=== PATIENT | female | born 1945 | race Caucasian/White ===

== ENCOUNTER 2020-08-01 10:12 | Outpatient (REF) | payer MEDICARE, SELFPAY | END 2020-08-01 10:13 | disposition home or self-care (01) | LOC: HO.LAB 10:12 | PROVIDERS: Visit Provider Internal Medicine | DX: Z20.828 Contact with and (suspected) exposure to other viral communicable diseases (principal) | CPT/HCPCS: C9803; U0003 ==

== ENCOUNTER 2020-08-22 08:59 | Outpatient (REF) | payer MEDICARE, SELFPAY | END 2020-08-22 09:00 | disposition home or self-care (01) | LOC: HO.LAB 08:59 | PROVIDERS: PCP Internal Medicine; Visit Provider Internal Medicine | DX: Z20.822 Contact with and (suspected) exposure to COVID-19 (principal) | CPT/HCPCS: 36415; C9803; U0003 ==

== ENCOUNTER 2020-09-09 11:04 | Outpatient (REF) | payer MEDICARE, SELFPAY | END 2020-09-09 11:05 | disposition home or self-care (01) | LOC: HO.LAB 11:04 | PROVIDERS: Visit Provider Internal Medicine | DX: Z20.822 Contact with and (suspected) exposure to COVID-19 (principal) | CPT/HCPCS: 36415; C9803; U0003; U0005 ==

== ENCOUNTER 2021-03-20 14:08 | Observation (INO) | payer MEDICARE, SELFPAY ==
--- NOTE | ~2021-03-20 | CT_ITS ---
EXAMINATION: CT HEAD WITHOUT CONTRAST CLINICAL INFORMATION: Headache. Hypertension. COMPARISON: None. TECHNIQUE: Contiguous axial imaging was performed from the skull base to vertex without intravenous administration of contrast. Coronal and sagittal reformatted images are performed at the CT scanner. [This CT examination was performed using dose optimization techniques as appropriate, variously including the following: *Automated exposure control *Adjustment of mA and/or kV according to patient size (this includes techniques or standardized protocols for targeted exams where dose is matched to indication/reason for exam; i.e. extremities or head) *Use of iterative reconstruction technique] DLP: 624 mGy-cm. FINDINGS: There is no evidence of acute intracranial hemorrhage or territorial infarction. No abnormal mass-effect or midline shift is seen. [place] to white matter differentiation is well preserved. No extra-axial fluid collections are identified. Physiologic mineralization basal ganglia bilateral. There is generalized global volume loss. There is moderate prominence of the ventricles and the sulci . There is moderate hypodensity of the periventricular white matter due to chronic small vessel ischemic disease. There are vascular calcifications of the internal carotid arteries bilaterally. There is no osseous abnormality. The mastoid air cells and visualized portions of the paranasal sinuses are well-aerated. CT/CT head/brain wo con IMPRESSION: No acute intracranial pathology.
--- NOTE | ~2021-03-20 | CT_ITS ---
EXAMINATION: CT ABDOMEN AND PELVIS WITHOUT AND WITH CONTRAST CLINICAL INFORMATION: Gastrointestinal bleeding COMPARISON: None TECHNIQUE: Multidetector volumetric imaging was performed of the abdomen and pelvis before and after the IV administration of 80 mL of Omnipaque 350 intravenous contrast timed for portal venous and delayed venous phases. Sagittal and coronal reformatted images were obtained on the technologist's workstation. This CT examination was performed using dose optimization techniques as appropriate, variously including the following: *Automated exposure control *Adjustment of mA and/or kV according to patient size (this includes techniques or standardized protocols for targeted exams where dose is matched to indication/reason for exam; i.e. extremities or head) *Use of iterative reconstruction technique DLP: 2509 mGy-cm FINDINGS: LUNG BASES: The visualized lung bases are unremarkable. LIVER, GALLBLADDER, AND BILIARY TREE: The liver is normal in size, shape, and attenuation. No focal hepatic lesion or biliary ductal dilatation is present. The gallbladder is unremarkable with no evidence of radiopaque gallstones, gallbladder wall thickening, or obvious pericholecystic inflammatory changes. PANCREAS: There is extensive fatty infiltration of the pancreas. No duct dilation. No focal pancreatic lesion is identified. SPLEEN: Unremarkable ADRENAL GLANDS: Unremarkable KIDNEYS AND URETERS: The kidneys are normal in size, shape, and attenuation. No hydronephrosis, hydroureter, or calculi seen. No perinephric stranding. There are subcentimeter hypodensities too small to characterize bilaterally. BLADDER: There is a tiny focus of air within the bladder. Would correlate for any recent instrumentation or catheterization. GASTROINTESTINAL TRACT: There is a small hiatus hernia containing a portion of the proximal stomach, otherwise the distal esophagus and stomach are unremarkable. There is a large duodenal diverticulum arising from the second portion of the duodenum and extending into the region of the pancreatic head which measures up to 6.2 cm anteroposterior. The small and large bowel are nondilated. There is no extravasation of contrast into the bowel lumen to suggest ongoing hemorrhage. There are no bowel wall inflammatory changes. There is moderate diverticulosis of the colon, predominantly the left colon. ABDOMINAL WALL: No significant hernia is appreciated. LYMPH NODES: Normal VASCULAR: The aorta is normal in caliber and there is mild scattered eccentric wall calcification. Portal mesenteric venous system is widely patent. Hepatic veins are patent. PELVIC VISCERA: The uterus is surgically absent there are no adnexal lesions identified. OSSEOUS STRUCTURES: There are multilevel degenerative changes of the imaged thoracolumbar spine with grade 1 anterolisthesis of L4 on L5 by 2 3 mm and grade 1-2 anterolisthesis of L5 on S1 by approximately 6 to 7 mm. There are degenerative changes of the sacroiliac joints and hips. No acute or aggressive bony abnormality is identified. CT/CT gi bleed abd pel wo/w con IMPRESSION: There is no CT evidence of ongoing gastrointestinal hemorrhage. 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 Colonic diverticulosis without inflammation to suggest diverticulitis. Tiny focus of air within the bladder. Would correlate for any recent catheterization or instrumentation. Moderate hiatus hernia.
[2021-03-20 15:17] VITALS: BP 156/100; PULSE 91; RESP 20; TEMP 36.8; O2SAT 95; BMI 33.6
--- NOTE | 2021-03-20 15:28 | ECG_ITS ---
Test Reason : NAUSEA Blood Pressure : / mmHG Vent. Rate : 078 BPM Atrial Rate : 092 BPM P-R Int : 000 ms QRS Dur : 096 ms QT Int : 400 ms P-R-T Axes : 000 -02 014 degrees QTc Int : 456 ms Atrial fibrillation Abnormal ECG No previous ECGs available Referred By: Generic ED Physician Electronically Signed By:NIKHIL PEÑA
[2021-03-20] MEDS: Ondansetron ODT 4 MG TAB.RAPDIS TRANSLINGU (15:40)
[2021-03-20 17:28] LABS: MANUAL DIFF FLAG NO
[2021-03-20 17:30] LABS: Basophils Percent Auto 0.2 % (0-2); Eosinophils Percent Auto 0.1 % (0-4); Hematocrit 50.6 % (37-47); Hemoglobin 17.5 g/dl (12.0-16.0); Imm Gran Abs Auto 0.11 X10*3/uL (0.00-0.03); Imm Gran Pct Auto 0.7 % (0.0-0.4); Lymphocytes Absolute Auto 1.3 X10*3/uL (1.2-4.9); Lymphocytes Percent Auto 8.4 % (20-40); Mean Corpuscular HGB Conc 34.6 g/dl (31.0-35.0); Mean Corpuscular Hemoglobin 31.6 pg (27.0-33.0); Mean Corpuscular Volume 91.5 fL (80-98); Mean Platelet Volume 9.4 fL (9.4-12.3); Monocytes Absolute Auto 0.9 X10*3/uL (0.1-1.2); Monocytes Percent Auto 6.2 % (2-11); Neutrophils Absolute Auto 12.9 X10*3/uL (2.0-8.3); Neutrophils Percent Auto 84.4 % (45-73); Platelet Count 240 X10*3/uL (160-400); Red Blood Count 5.53 X10*6/uL (4.20-5.50); Red Cell Distribution Width 12.7 % (11.0-16.0); White Blood Count 15.3 X10*3/uL (4.8-10.8)
[2021-03-20 17:37] LABS: INTERNATIONAL NORM RATIO 3.9 (0.9-1.1); Prothrombin Time 45.9 SEC (9.9-13.0)
[2021-03-20 18:00] LABS: Anion Gap 15 (12-20); Blood Urea Nitrogen 22 mg/dL (9-16); Calcium 9.8 mg/dL (8.4-10.2); Carbon Dioxide 27 mmol/L (22-29); Chloride 104 mmol/L (96-108); Creatinine Clr Calc Pharmacy 62.7; Estimated Glomerular Filt Rate > 60; Glucose Random 113 mg/dL (60-115); Potassium 5.1 mmol/L (3.3-5.1); Sodium 141 mmol/L (135-145)
[2021-03-20 18:05] LABS: B Type Natriuretic Peptide 363 pg/mL (<100); Troponin-I High Sensitivity 10.5 ng/L (<3.5-17.0)
--- NOTE | 2021-03-20 18:33 | ED.GIBLEED ---
HPI - GI Bleed General Chief complaint: GI Bleed Stated complaint: vomiting Time Seen by Provider: 03/20/21 23:55 Source: patient Mode of arrival: ambulatory Limitations: no limitations History of Present Illness HPI Narrative: 75-year-old female presents with multiple complaints. One, she started rectal bleeding today describing bright red blood per rectum which she feels could possibly be hemorrhoids however she is on Coumadin and has had several episodes of rectal bleeding today. Shortly after the rectal bleeding she stated that she started having a significant headache with sinus pressure nausea and epigastric pain. She does report recent cortisone injection to her knee. MD complaint: blood on toilet paper and gross hematochezia Onset (ago): day(s) (1) Pain Consistency: intermittent Severity: moderate Relieving factors: none Exacerbating factors: bowel movement and vomiting Context: hemorrhoids and anticoagulant use Associated symptoms: nausea, vomiting and headaches Treatments Prior to Arrival: none Related Data Allergies Allergy/AdvReac Type Severity Reaction Status Date / Time No Known Allergies Allergy Verified 03/20/21 15:27 Review of Systems Review of Systems: Constitutional: No Fever, No Chills ENT/Mouth: Positive sinus pressure, No Ear Pain, No Hoarseness, No sore throat Eyes: No Eye Pain, No Swelling, No Redness, No Foreign Body Cardiovascular: No Chest Pain, No SOB Respiratory: No Cough, No Dyspnea Gastrointestinal: Positive rectal bleeding,Positive Nausea, positive Vomiting, No Diarrhea, No abdominal Pain Genitourinary: No Dysuria, No Hematuria Musculoskeletal: No joint pain, No Myalgias, No Joint Swelling Skin: No Skin lacerations, No rash Neuro: Positive headache, No Weakness, No Numbness, No Paresthesias, No Loss of Consciousness, No Dizziness Psych: No Anxiety/Panic, No Depression Heme/Lymph: no easy bruising, no Lymphadenopathy Endocrine: No Polyuria, No Polydipsia Yes all other systems are reviewed and are negative [facility] Past Medical History Attestation statement: The following information was validated with the patient. Source: old records reviewed Medical History A-fib Social History Social History Alcohol intake: never Patient Tobacco Use Status: Never used Tobacco Use of substances other than those prescribed or required for medical reasons: No Advance Directives: No Advance Directives Information Provided: Yes Physical Exam Vital Signs: Vital Signs: Last Vital Signs Temp 98.2 F 03/20/21 23:54 Pulse 76 03/20/21 23:54 Resp 18 03/20/21 23:54 BP 147/103 H 03/20/21 23:54 Pulse Ox 95 03/20/21 23:54 Body Mass Index 33.6 Appearance: Alert. Oriented X3. No acute distress. Head: Normal external exam. Normocephalic. Atraumatic. No [place] signs noted. No raccoon eyes noted Eyes: PERRLA. EOMI. Conjunctiva and sclera normal. Eyelids normal. ENT: TM's Normal. Pharynx normal. Uvula midline. Moist mucous membranes. No trismus noted. No drooling noted. No muffled voice noted. Neck: Normal inspection. Neck supple. No adenopathy. Thyroid Normal. No meningeal signs. No neck mass noted. CVS: Normal heart rate and rhythm. Heart sound normal. No murmurs noted. Pulses equal to all extremities. Respiratory: No respiratory distress. Painless inspiration. Breath sounds normal. No wheezes/rales/rhonchi noted. Chest nontender. No accessory muscle usage noted or decreased air movement noted. Abdomen: Soft and mildly tender throughout positive Bowel sounds normal in all 4 quadrants. No distention noted. No organomegaly noted. No visible injury noted. Genitourinary: No vaginal bleeding, rectal tone normal, internal and external hemorrhoids. Back: No CVA tenderness. Full range of motion noted. Skin: Skin warm and dry. Normal skin color. Normal skin turgor. No rashes/lesions/lacerations noted. Extremities: No lower extremity edema. Extremities exhibit normal range of motion. Extremities nontender. Neuro: cranial nerves 2-12 intact, no focal neural deficits, strength 5/5 to all extremities, No motor deficit. No sensory deficit. Course Course Course Narrative: 75-year-old female presents with bright red blood per rectum, headache, nausea, vomiting, and sinus pressure. Also noted to have elevated blood pressure which is not normal for her. A cortisone injection a couple days ago to her knee. Labs drawn indicating elevated white count, H and H of 17.5/50.6, patient is on Coumadin. Will give L fluid for suspected dehydration, could possibly be polycythemia vera. Will order CT scan of abdomen and pelvis, due to sudden onset of headache and elevated blood pressure will order CT scan of the head. CT scans are negative for acute findings, abdomen shows a 6.2 cm duodenal diverticulum that reaches out to the pancreatic head. No source of bleeding found. Urinalysis positive for UTI treated with ceftriaxone, lactic and cultures drawn prior to ceftriaxone. Patient is not septic, does not fit SIRS or sepsis criteria. Plan is to admit for rectal bleeding, possible dehydration versus polycythemia vera secondary to elevated H&H, and UTI. Consultations Consultation #1: Dario Time: 23:55 MDM - GI Bleed Differential Diagnosis Differential diagnosis: Likely hemorrhoids, gastritis, Upper gastrointestinal hemorrhage, Lower gastrointestinal hemorrhage, hematochezia and melena Medical Records Attestation: I reviewed the patient's medical records. Lab Data Attestation: I reviewed the patient's lab results. Result diagrams: 03/20/21 17:22 03/20/21 17:21 Labs: Lab Results 03/20/21 03/20/21 03/20/21 Range/Units 17:21 17:21 17:21 WBC (4.8-10.8) X10*3/uL RBC (4.20-5.50) X10*6/uL Hgb (12.0-16.0) g/dl Hct (37-47) % MCV (80-98) fL MCH (27.0-33.0) pg MCHC (31.0-35.0) g/dl RDW (11.0-16.0) % Plt Count (160-400) X10*3/uL MPV (9.4-12.3) fL Immature Gran % (Auto) (0.0-0.4) % Neut % (Auto) (45-73) % Lymph % (Auto) (20-40) % [place] % (Auto) (2-11) % Eos % (Auto) (0-4) % Baso % (Auto) (0-2) % Lymph # (Auto) (1.2-4.9) X10*3/uL [place] # (Auto) (0.1-1.2) X10*3/uL Eos # (Auto) (0.0-0.4) X10*3/uL Baso # (Auto) (0.0-0.2) X10*3/uL Abs Immat Gran (auto) (0.00-0.03) X10*3/uL Absolute Neuts (auto) (2.0-8.3) X10*3/uL Absolute Nucleated RBC (0.0-0.012) X10*3/uL Nucleated RBC % (auto) (0.0-0.2) /100WBC PT 45.9 H (9.9-13.0) SEC INR 3.9 H (0.9-1.1) Sodium 141 (135-145) mmol/L Potassium 5.1 (3.3-5.1) mmol/L Chloride 104 (96-108) mmol/L Carbon Dioxide 27 (22-29) mmol/L Anion Gap 15 (12-20) BUN 22 H (9-16) mg/dL Creatinine 0.83 (0.5-1.4) mg/dL Estim Creat Clear Calc 62.7 Estimated GFR > 60 Random Glucose 113 (60-115) mg/dL Lactic Acid (0.5-2.0) mmol/L Calcium 9.8 (8.4-10.2) mg/dL Troponin I High Sens 10.5 (<3.5-17.0) ng/L B-Natriuretic Peptide 363 H (<100) pg/mL Urine Color Urine Appearance Urine pH (5.0-8.0) Ur Specific [place] (1.005-1.025) Urine Protein (NEG-TRACE) MG/DL Urine Glucose (UA) (NEG) MG/DL Urine Ketones (NEG) MG/DL Urine Blood (NEG) Urine Nitrite (NEG) Ur Leukocyte Esterase (NEG) Urine RBC (0) /HPF Urine WBC (0-4) /HPF Ur Squamous Epith Cells /LPF Urine Bacteria /LPF Hyaline Casts /LPF Stool Occult Blood (NEGATIVE) 03/20/21 03/20/21 03/20/21 Range/Units 17:22 18:52 20:00 WBC 15.3 H (4.8-10.8) X10*3/uL RBC 5.53 H (4.20-5.50) X10*6/uL Hgb 17.5 H (12.0-16.0) g/dl Hct 50.6 H (37-47) % MCV 91.5 (80-98) fL MCH 31.6 (27.0-33.0) pg MCHC 34.6 (31.0-35.0) g/dl RDW 12.7 (11.0-16.0) % Plt Count 240 (160-400) X10*3/uL MPV 9.4 (9.4-12.3) fL Immature Gran % (Auto) 0.7 H (0.0-0.4) % Neut % (Auto) 84.4 H (45-73) % Lymph % (Auto) 8.4 L (20-40) % [place] % (Auto) 6.2 (2-11) % Eos % (Auto) 0.1 (0-4) % Baso % (Auto) 0.2 (0-2) % Lymph # (Auto) 1.3 (1.2-4.9) X10*3/uL [place] # (Auto) 0.9 (0.1-1.2) X10*3/uL Eos # (Auto) 0.0 (0.0-0.4) X10*3/uL Baso # (Auto) 0.0 (0.0-0.2) X10*3/uL Abs Immat Gran (auto) 0.11 H (0.00-0.03) X10*3/uL Absolute Neuts (auto) 12.9 H (2.0-8.3) X10*3/uL Absolute Nucleated RBC 0.000 (0.0-0.012) X10*3/uL Nucleated RBC % (auto) 0.0 (0.0-0.2) /100WBC PT (9.9-13.0) SEC INR (0.9-1.1) Sodium (135-145) mmol/L Potassium (3.3-5.1) mmol/L Chloride (96-108) mmol/L Carbon Dioxide (22-29) mmol/L Anion Gap (12-20) BUN (9-16) mg/dL Creatinine (0.5-1.4) mg/dL Estim Creat Clear Calc Estimated GFR Random Glucose (60-115) mg/dL Lactic Acid (0.5-2.0) mmol/L Calcium (8.4-10.2) mg/dL Troponin I High Sens (<3.5-17.0) ng/L B-Natriuretic Peptide (<100) pg/mL Urine Color YELLOW Urine Appearance HAZY Urine pH 6.0 (5.0-8.0) Ur Specific [place] >= 1.030 H (1.005-1.025) Urine Protein 1+ H (NEG-TRACE) MG/DL Urine Glucose (UA) NEG (NEG) MG/DL Urine Ketones NEG (NEG) MG/DL Urine Blood 2+ H (NEG) Urine Nitrite NEG (NEG) Ur Leukocyte Esterase 1+ H (NEG) Urine RBC 1-4 (0) /HPF Urine WBC 15-29 H (0-4) /HPF Ur Squamous Epith Cells 1+ /LPF Urine Bacteria 3+ /LPF Hyaline Casts 0-2 /LPF Stool Occult Blood POSITIVE (NEGATIVE) 03/20/21 Range/Units 21:11 WBC (4.8-10.8) X10*3/uL RBC (4.20-5.50) X10*6/uL Hgb (12.0-16.0) g/dl Hct (37-47) % MCV (80-98) fL MCH (27.0-33.0) pg MCHC (31.0-35.0) g/dl RDW (11.0-16.0) % Plt Count (160-400) X10*3/uL MPV (9.4-12.3) fL Immature Gran % (Auto) (0.0-0.4) % Neut % (Auto) (45-73) % Lymph % (Auto) (20-40) % [place] % (Auto) (2-11) % Eos % (Auto) (0-4) % Baso % (Auto) (0-2) % Lymph # (Auto) (1.2-4.9) X10*3/uL [place] # (Auto) (0.1-1.2) X10*3/uL Eos # (Auto) (0.0-0.4) X10*3/uL Baso # (Auto) (0.0-0.2) X10*3/uL Abs Immat Gran (auto) (0.00-0.03) X10*3/uL Absolute Neuts (auto) (2.0-8.3) X10*3/uL Absolute Nucleated RBC (0.0-0.012) X10*3/uL Nucleated RBC % (auto) (0.0-0.2) /100WBC PT (9.9-13.0) SEC INR (0.9-1.1) Sodium (135-145) mmol/L Potassium (3.3-5.1) mmol/L Chloride (96-108) mmol/L Carbon Dioxide (22-29) mmol/L Anion Gap (12-20) BUN (9-16) mg/dL Creatinine (0.5-1.4) mg/dL Estim Creat Clear Calc Estimated GFR Random Glucose (60-115) mg/dL Lactic Acid 1.2 (0.5-2.0) mmol/L Calcium (8.4-10.2) mg/dL Troponin I High Sens (<3.5-17.0) ng/L B-Natriuretic Peptide (<100) pg/mL Urine Color Urine Appearance Urine pH (5.0-8.0) Ur Specific [place] (1.005-1.025) Urine Protein (NEG-TRACE) MG/DL Urine Glucose (UA) (NEG) MG/DL Urine Ketones (NEG) MG/DL Urine Blood (NEG) Urine Nitrite (NEG) Ur Leukocyte Esterase (NEG) Urine RBC (0) /HPF Urine WBC (0-4) /HPF Ur Squamous Epith Cells /LPF Urine Bacteria /LPF Hyaline Casts /LPF Stool Occult Blood (NEGATIVE) Imaging Data CT scan - head: Attestation: I personally reviewed and interpreted this imaging study as follows: Radiologist's impression: DLP: 624 mGy-cm. FINDINGS: There is no evidence of acute intracranial hemorrhage or territorial infarction. No abnormal mass-effect or midline shift is seen. Santos to white matter differentiation is well preserved. No extra-axial fluid collections are identified. Physiologic mineralization basal ganglia bilateral. There is generalized global volume loss. There is moderate prominence of the ventricles and the sulci . There is moderate hypodensity of the periventricular white matter due to chronic small vessel ischemic disease. There are vascular calcifications of the internal carotid arteries bilaterally. There is no osseous abnormality. The mastoid air cells and visualized portions of the paranasal sinuses are well-aerated. ? CT/CT head/brain wo con IMPRESSION: No acute intracranial pathology. ? CT scan - abdomen: Attestation: I personally reviewed and interpreted this imaging study as follows: Radiologist's impression: EXAMINATION: CT ABDOMEN AND PELVIS WITHOUT AND WITH CONTRAST? CLINICAL INFORMATION: Gastrointestinal bleeding? COMPARISON: None? TECHNIQUE: Multidetector volumetric imaging was performed of the abdomen and pelvis before and after the IV administration of 80 mL of Omnipaque 350 intravenous contrast timed for portal venous and delayed venous phases. Sagittal and coronal reformatted images were obtained on the technologist's workstation. This CT examination was performed using dose optimization techniques as appropriate, variously including the following: *Automated exposure control *Adjustment of mA and/or kV according to patient size (this includes techniques or standardized protocols for targeted exams where dose is matched to indication/reason for exam; i.e. extremities or head) *Use of iterative reconstruction technique DLP: 2509 mGy-cm FINDINGS: LUNG BASES: The visualized lung bases are unremarkable.? LIVER, GALLBLADDER, AND BILIARY TREE: The liver is normal in size, shape, and attenuation. No focal hepatic lesion or biliary ductal dilatation is present. The gallbladder is unremarkable with no evidence of radiopaque gallstones, gallbladder wall thickening, or obvious pericholecystic inflammatory changes.? PANCREAS: There is extensive fatty infiltration of the pancreas. No duct dilation. No focal pancreatic lesion is identified.? SPLEEN: Unremarkable? ADRENAL GLANDS: Unremarkable? KIDNEYS AND URETERS: The kidneys are normal in size, shape, and attenuation. No hydronephrosis, hydroureter, or calculi seen. No perinephric stranding. There are subcentimeter hypodensities too small to characterize bilaterally. BLADDER: There is a tiny focus of air within the bladder. Would correlate for any recent instrumentation or catheterization.? GASTROINTESTINAL TRACT: There is a small hiatus hernia containing a portion of the proximal stomach, otherwise the distal esophagus and stomach are unremarkable. There is a large duodenal diverticulum arising from the second portion of the duodenum and extending into the region of the pancreatic head which measures up to 6.2 cm anteroposterior. The small and large bowel are nondilated. There is no extravasation of contrast into the bowel lumen to suggest ongoing hemorrhage. There are no bowel wall inflammatory changes. There is moderate diverticulosis of the colon, predominantly the left colon. ABDOMINAL WALL: No significant hernia is appreciated.? LYMPH NODES: Normal VASCULAR: The aorta is normal in caliber and there is mild scattered eccentric wall calcification. Portal mesenteric venous system is widely patent. Hepatic veins are patent. PELVIC VISCERA: The uterus is surgically absent there are no adnexal lesions identified.? OSSEOUS STRUCTURES: There are multilevel degenerative changes of the imaged thoracolumbar spine with grade 1 anterolisthesis of L4 on L5 by 2 3 mm and grade 1-2 anterolisthesis of L5 on S1 by approximately 6 to 7 mm. There are degenerative changes of the sacroiliac joints and hips. No acute or aggressive bony abnormality is identified.? CT/CT gi bleed abd pel wo/w con IMPRESSION: There is no CT evidence of ongoing gastrointestinal hemorrhage. ? 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 ? Colonic diverticulosis without inflammation to suggest diverticulitis. ? Tiny focus of air within the bladder. Would correlate for any recent catheterization or instrumentation. ? Moderate hiatus hernia.? ECG Data Attestation: I personally reviewed and interpreted this ECG as follows: ECG interpretation date: 03/20/21 Critical Care Time Critical Care Time Critical Care Time: Yes Total Critical Care Time: 65 Attestation: I have personally provided critical care time exclusive of time spent on separately billable procedures. Time includes review of laboratory data, radiology results, discussion with consultants, and monitoring for potential decompensation. Interventions were performed as documented. Discharge Plan Discharge Clinical Impression: Acute UTI, Acute dehydration GI bleed Qualifiers: GI bleed type/associated pathology: unspecified gastrointestinal hemorrhage type Qualified Code(s): K92.2 - Gastrointestinal hemorrhage, unspecified Hypertension Qualifiers: Hypertension type: unspecified Qualified Code(s): I10 - Essential (primary) hypertension Patient Disposition: Admitted As Inpatient
[2021-03-20 18:59] LABS: OBS Int Ctl Valid YES; OBS1 POSITIVE (NEGATIVE)
[2021-03-20 19:03] VITALS: BP 138/113; PULSE 74; RESP 18; TEMP 36.8; O2SAT 96
[2021-03-20] MEDS: Pantoprazole Sodium 40 MG/10 ML VIAL IVPUSH (19:03)
[2021-03-20] MEDS: 0.9 % Sodium Chloride 1,000 ML 999 ML IVCONT (19:03)
--- NOTE | 2021-03-20 19:06 | PC.NURSE ---
patient a&ox3, family at bedside, rectal exam performed by provider, iv inserted, pt medicated per order, will continue to monitor.
[2021-03-20 20:11] LABS: Glucose Urine UA NEG (NEG); Leukocyte Esterase Urine 1+ (NEG); Nitrite Urine NEG (NEG); Specific Gravity - Urine >= 1.030 (1.005-1.025); UACC Culture Trigger YES; Urine Blood 2+ (NEG); Urine Ketones NEG (NEG); Urine Protein 1+ MG/DL (NEG-TRACE)
[2021-03-20 20:16] LABS: Appearance Urine HAZY; Color Urine YELLOW
[2021-03-20 20:21] LABS: Bacteria Urine 3+ /LPF; Hyaline Casts Urine 0-2 /LPF; Squamous Epithelial Cell Urine 1+ /LPF
[2021-03-20] MEDS: iohexoL 350 MG/ML 100 ML INFUS..BTL IV (20:51)
--- NOTE | 2021-03-20 20:52 | PC.NURSE ---
ivf continue to run slowly, will d/c when appropriate to do so
[2021-03-20] MEDS: cefTRIAXone sodium 1 GM in 0.9 % Sodium Chloride 50 ML IV (21:24)
[2021-03-20 21:25] VITALS: BP 141/108; PULSE 89; RESP 18; TEMP 36.7; O2SAT 96
--- NOTE | 2021-03-20 21:25 | PC.NURSE ---
BC DRAWN, VL DRAWN, PT MEDICATED PER ORDER
[2021-03-20 21:37] LABS: Lactic Acid 1.2 mmol/L (0.5-2.0)
[2021-03-20] MEDS: Acetaminophen 325 MG TABLET 975 MG PO (23:51)
[2021-03-20 23:54] VITALS: BP 147/103; PULSE 76; RESP 18; TEMP 36.8; O2SAT 95
[2021-03-21] VITALS (7 sets, daily range): BP systolic 142–169; BP diastolic 70–111; PULSE 69–89; RESP 16–71; TEMP 36.2–37.3; O2SAT 96–98; BMI 33.9
--- NOTE | 2021-03-21 02:47 | PC.NURSE ---
Pt aaox4, resting on stretcher in NAD, breathing with ease on RA. Pt denies pain/discomfort at this time. Pt VSS. Pt denies n/v/d at this time. Pt stretcher in low locked position, rails raised, call whitaker within reach.
[2021-03-21 03:09] LABS: COVID-19 Test Negative (Negative)
--- NOTE | 2021-03-21 05:59 | P.HPHOSP_ITS ---
History of Present Illness Date of Service: 03/21/21 75-year-old female with history of atrial fibrillation (on Coumadin), who presented with red blood per rectum. History is obtained from the patient and from ED notes. Patient endorses that she was scheduled to have knee replacement surgery in the near future, therefore she had a cortisone injection yesterday. Initially she was doing well, but in the bathroom she saw blood on her urinary pad (which she wears in case of accidents). She had a bowel movement later that day, when she went to wipe it was ?full of red blood . Later in the day, she also experienced sudden onset of diffuse abdominal pain, headache, she felt hot and nauseous. She called her boyfriend, who who brought to the ED. In the ED waiting room, she did had an event where she vomited (but she attributes this to a postnasal drip, and states that she has been having sinus pressure lately). On further review of system questions, she does also endorse some lightheadedness. Otherwise, she denies chest pain, shortness of breath, fever or chills, she denies sick contacts or NSAID use. In the ED, pertinent findings include blood pressure as high as 169/99, WBC 15.3, hemoglobin 17.5, BNP 363, INR was supratherapeutic at 3.9. Her urinalysis was positive for UTI. Her stool occult blood was positive. And her CT of the abdomen did reveal a 6.2 cm large duodenal diverticulum, otherwise no evidence of ongoing GI hemorrhage. In the ED, she was treated with IV ceftriaxone, 1 L IV fluid bolus, and IV ppi. Review of Systems Constitutional: Constitutional: Denies chills, Denies fatigue, Reports feve r(s), Reports headache(s), Denies weakness and Denies weight loss Eyes: Eyes: Denies blurry vision, Denies change in vision, Denies diplopia and Denies loss of vision ENT: Denies dysphagia, Denies vertigo, Denies dizziness, Reports headache(s), Denies hearing loss, Denies lip swelling and Denies sore throat Cardiovascular: Cardiovascular: Denies chest pain, Denies leg edema, Denies lightheadedness, Denies palpitations and Denies dyspnea Respiratory: Respiratory: Denies no additional respiratory complaints, Denies cough, Denies dyspnea and Denies wheezing Gastrointestinal: Gastrointestinal: Reports abdominal pain, Reports hematochezia, Denies coffee ground emesis, Denies constipation, Denies dysphagia, Denies diarrhea, Reports nausea and Reports vomiting Genitourinary: Genitourinary: Denies dysuria Musculoskeletal: Musculoskeletal: Denies arthralgias, Denies muscle weakness, Denies numbness and Denies tingling Integumentary/Breasts: Skin/Breast: Denies bleeding lesions, Denies new lesions and Denies rash Neurologic: Denies vertigo, Denies dizziness, Reports headache(s), Denies loss of vision, Denies numbness, Denies tingling and Denies weakness Psychiatric: Psychiatric: Denies anxiety and Denies depression Endocrine: Endocrine: Denies cold intolerance, Denies fatigue, Denies heat intolerance and Denies palpitations Hematologic/Lymphatic: Hematologic/Lymphatic: Denies easy bleeding, Denies easy bruising and Denies lymphadenopathy Allergic/Immunologic: Allergic/Immunologic: Denies lip swelling and Denies wheezing [facility] Medical History (Updated 03/21/21 @ 06:45 by Bob Bishop MD) A-fib Pertinent family history: Father with diabetes mellitus. Mother with arthritis. Surgical History H/O hernia repair Social History Alcohol intake: never Patient Tobacco Use Status: Never used Tobacco Use of substances other than those prescribed or required for medical reasons: No Advance Directives: No Advance Directives Information Provided: Yes Meds Allergies Allergy/AdvReac Type Severity Reaction Status Date / Time No Known Allergies Allergy Verified 03/20/21 15:27 Active Medications: Current Medications Generic Name Dose Route Start Last Admin Trade Name Freq PRN Reason Stop Dose Admin Acetaminophen 650 mg 03/21/21 03:56 Acetaminophen 325 Mg Tablet PO Q6H PRN Pain, Mild (Pain Scale 1-3) Ceftriaxone Sodium 1 gm/ 50 mls @ 100 mls/hr 03/21/21 19:00 Sodium Chloride IV Q24H [facility] Pantoprazole Sodium 40 mg 03/21/21 06:30 Pantoprazole Sodium 40 Mg/10 Ml Vial IVPUSH BID@[id number],1630 [facility] Pharmacy Consult 1 each 03/20/21 22:06 Consult Rx Perform Med Rec MISCELLANE ONCE PRN Consult order Pharmacy Consult 1 each 03/20/21 22:57 Consult Rx Perform Med Rec MISCELLANE 03/20/21 22:58 ONCE STA Sodium Chloride 3 ml 03/21/21 08:00 0.9 % Sodium Chloride Flush 3 Ml Syringe [facility] Medications Medication Instructions Recorded Confirmed Last Taken Type atorvastatin 10 mg tablet 1 tab PO DAILY 03/21/21 03/21/21 Unknown History diclofenac sodium 1 % topical gel 4 g TOPICAL QID PRN 03/21/21 03/21/21 Unknown History warfarin 2.5 mg tablet 2.5 mg PO DAILY 03/21/21 03/21/21 Unknown History Physical Exam Vital Signs and Narrative: Vital Signs: Last Vital Signs Temp 97.9 F 03/21/21 05:36 Pulse 86 03/21/21 05:36 Resp 17 03/21/21 05:36 BP 169/99 H 03/21/21 05:36 Pulse Ox 98 03/21/21 05:36 Body Mass Index 33.6 Const: General: no acute distress, well developed and alert HENMT: Face and sinus: Yes normal facial exam and Yes face symmetric Mouth: Normal oral and palatal mucosa present and moist mucous membranes Throat: Yes posterior oropharynx normal and Yes tonsils normal Eyes: General: appearance normal, both eyes and all related structures Alignment and Position: alignment normal and position normal Sclerae: sclerae normal Pupils: Equal, round and reactive pupils present EOM: EOMs intact bilaterally Neck: Yes normal visual inspection, Yes full ROM and Yes no lymphadenopathy Lymphatic: no lymphadenopathy noted Resp: Effort & Inspection: normal respiratory effort and able to speak in complete sentences Auscultation: clear to auscultation bilaterally, no crackles, no rales, no rhonchi and no wheezes Cardio: Rate: abnormal rate Rhythm: abnormal rhythm Heart sounds: S1 normal heart sound present, S2 normal heart sound present, no murmurs and no rubs GI: Inspection: No distended Palpation (GI): Soft to palpation and nontender Percussion: No tympanic to percussion Auscultation: normal bowel sounds Skin: Rashes: no rashes Trauma: no lacerations or abrasions Wounds: no wounds Neuro: Cranial nerves: Yes CN's II-XII intact bilaterally, Yes Equal, round and reactive pupils present and Yes Bilaterally intact EOM present Extrem: General: Yes full ROM and Yes no pedal edema Psych: Appearance: grossly normal Mental Status: mental status grossly normal Speech and movement: Normal speech and movement present Affect: normal affect Thought process: Normal thought process present Results Labs CBC and Chem 7: 03/20/21 17:22 03/20/21 17:21 Labs: Laboratory Results - last 24 hr 03/20/21 03/20/21 03/20/21 17:21 17:21 17:21 MCV MCH MCHC RDW Plt Count MPV Immature Gran % (Auto) Neut % (Auto) Lymph % (Auto) [place] % (Auto) Eos % (Auto) Baso % (Auto) Lymph # (Auto) [place] # (Auto) Eos # (Auto) Baso # (Auto) Abs Immat Gran (auto) Absolute Neuts (auto) Absolute Nucleated RBC Nucleated RBC % (auto) PT 45.9 H INR 3.9 H Anion Gap 15 Estim Creat Clear Calc 62.7 Estimated GFR > 60 Random Glucose 113 Lactic Acid Calcium 9.8 Troponin I High Sens 10.5 B-Natriuretic Peptide 363 H Urine Color Urine Appearance Urine pH Ur Specific [place] Urine Protein Urine Glucose (UA) Urine Ketones Urine Blood Urine Nitrite Ur Leukocyte Esterase Urine RBC Urine WBC Ur Squamous Epith Cells Urine Bacteria Hyaline Casts Stool Occult Blood COVID-19 (PATRICA) COVID-19 Clin Com 03/20/21 03/20/21 03/20/21 17:22 18:52 20:00 MCV 91.5 MCH 31.6 MCHC 34.6 RDW 12.7 Plt Count 240 MPV 9.4 Immature Gran % (Auto) 0.7 H Neut % (Auto) 84.4 H Lymph % (Auto) 8.4 L [place] % (Auto) 6.2 Eos % (Auto) 0.1 Baso % (Auto) 0.2 Lymph # (Auto) 1.3 [place] # (Auto) 0.9 Eos # (Auto) 0.0 Baso # (Auto) 0.0 Abs Immat Gran (auto) 0.11 H Absolute Neuts (auto) 12.9 H Absolute Nucleated RBC 0.000 Nucleated RBC % (auto) 0.0 PT INR Anion Gap Estim Creat Clear Calc Estimated GFR Random Glucose Lactic Acid Calcium Troponin I High Sens B-Natriuretic Peptide Urine Color YELLOW Urine Appearance HAZY Urine pH 6.0 Ur Specific [place] >= 1.030 H Urine Protein 1+ H Urine Glucose (UA) NEG Urine Ketones NEG Urine Blood 2+ H Urine Nitrite NEG Ur Leukocyte Esterase 1+ H Urine RBC 1-4 Urine WBC 15-29 H Ur Squamous Epith Cells 1+ Urine Bacteria 3+ Hyaline Casts 0-2 Stool Occult Blood POSITIVE COVID-19 (PATRICA) COVID-19 Clin Com 03/20/21 03/21/21 21:11 02:44 MCV MCH MCHC RDW Plt Count MPV Immature Gran % (Auto) Neut % (Auto) Lymph % (Auto) [place] % (Auto) Eos % (Auto) Baso % (Auto) Lymph # (Auto) [place] # (Auto) Eos # (Auto) Baso # (Auto) Abs Immat Gran (auto) Absolute Neuts (auto) Absolute Nucleated RBC Nucleated RBC % (auto) PT INR Anion Gap Estim Creat Clear Calc Estimated GFR Random Glucose Lactic Acid 1.2 Calcium Troponin I High Sens B-Natriuretic Peptide Urine Color Urine Appearance Urine pH Ur Specific [place] Urine Protein Urine Glucose (UA) Urine Ketones Urine Blood Urine Nitrite Ur Leukocyte Esterase Urine RBC Urine WBC Ur Squamous Epith Cells Urine Bacteria Hyaline Casts Stool Occult Blood COVID-19 (PATRICA) Negative COVID-19 Clin Com See Note Imaging Radiologist's Impressions: Impressions Head CT 03/20/21 19:21 IMPRESSION: No acute intracranial pathology. Abdomen/Pelvis CT 03/20/21 19:39 IMPRESSION: There is no CT evidence of ongoing gastrointestinal hemorrhage. 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 Colonic diverticulosis without inflammation to suggest diverticulitis. Tiny focus of air within the bladder. Would correlate for any recent catheterization or instrumentation. Moderate hiatus hernia. Assessment and Plan (1) GI bleed: Qualifiers: GI bleed type/associated pathology: unspecified gastrointestinal hemorrhage type Qualified Code(s): K92.2 - Gastrointestinal hemorrhage, unspecified Status: Acute (2) Supratherapeutic INR: Status: Acute (3) Acute UTI: Status: Acute (4) A-fib: Status: Acute (5) Chronic anticoagulation: Status: Acute GI bleed: -patient denies NSAID use; however, patient is using diclofenac topical for pain -Could also be from diverticular bleed -risk factor includes chronic anticoagulation with supratherapeutic INR -stool blood positive in the ED -hold Coumadin -IV PPI b.i.d. -GI consult placed -NPO Supratherapeutic INR: -INR in the ED was 3.9 -holding home Coumadin -daily INR Acute UTI: -continue ceftriaxone History of atrial fibrillation: -holding home Coumadin -patient is not using any rate control medications Chronic anticoagulation: -patient was taking Coumadin for atrial fibrillation -holding Coumadin due to GI bleed FEN: NPO CODE STATUS: FULL CODE DISPO: Admit to Observation Quality Stroke Does the patient have a stroke diagnosis?: No VTE Prior VTE?: Yes VTE Risk Level:: Medical - low VTE Device Contraindication: N/A - Device Ordered VTE Drug Contraindication: Treatment Not Indicated
[2021-03-21] MEDS: Pantoprazole Sodium 40 MG/10 ML VIAL IVPUSH ×2 (06:54→15:08)
[2021-03-21 06:58] LABS: MANUAL DIFF FLAG NO
[2021-03-21 07:04] LABS: Basophils Percent Auto 0.3 % (0-2); Eosinophils Percent Auto 0.4 % (0-4); Hematocrit 47.4 % (37-47); Hemoglobin 16.1 g/dl (12.0-16.0); Imm Gran Abs Auto 0.04 X10*3/uL (0.00-0.03); Imm Gran Pct Auto 0.4 % (0.0-0.4); Lymphocytes Absolute Auto 1.9 X10*3/uL (1.2-4.9); Lymphocytes Percent Auto 18.1 % (20-40); Mean Corpuscular Hemoglobin 31.2 pg (27.0-33.0); Mean Corpuscular Volume 91.9 fL (80-98); Mean Platelet Volume 9.7 fL (9.4-12.3); Monocytes Absolute Auto 0.7 X10*3/uL (0.1-1.2); Monocytes Percent Auto 6.9 % (2-11); Neutrophils Absolute Auto 7.7 X10*3/uL (2.0-8.3); Neutrophils Percent Auto 73.9 % (45-73); Platelet Count 241 X10*3/uL (160-400); Red Blood Count 5.16 X10*6/uL (4.20-5.50); Red Cell Distribution Width 12.8 % (11.0-16.0); White Blood Count 10.4 X10*3/uL (4.8-10.8)
[2021-03-21 07:08] LABS: INTERNATIONAL NORM RATIO 3.5 (0.9-1.1); Prothrombin Time 40.3 SEC (9.9-13.0)
[2021-03-21 07:31] LABS: Anion Gap 12 (12-20); Blood Urea Nitrogen 17 mg/dL (9-16); Calcium 8.9 mg/dL (8.4-10.2); Carbon Dioxide 24 mmol/L (22-29); Chloride 109 mmol/L (96-108); Creatinine Clr Calc Pharmacy 62.7; Estimated Glomerular Filt Rate > 60; Glucose Random 86 mg/dL (60-115); Sodium 141 mmol/L (135-145)
--- NOTE | 2021-03-21 08:01 | PC.NURSE ---
called for microtainers to chem, chem stated needed to get from phlebotomy
--- NOTE | 2021-03-21 10:12 | MHC.CM.PN ---
Attempted to meet with patient in regards to discharge planning. Patient not in her room. No family present. Will attempt to meet again. Continue to monitor for d/c needs.
[2021-03-21] MEDS: Acetaminophen 325 MG TABLET 650 MG PO (12:11)
--- NOTE | 2021-03-21 15:00 | PM.EVENT ---
Event Note Date of Service: 03/21/21 Event Note: admitted this morning for UTI, rectal bleeding. Reports improvement in abdominal pain and nausea. no further vomiting. no further episodes of rectal bleeding abdominal exam benign. no cvat GI bleed: No further episodes of bleeding Could also be from diverticular bleed vs hemorroidal -chronic anticoagulation with supratherapeutic INR -stool blood positive in the ED -hold Coumadin -IV PPI b.i.d. -GI consult pending -NPO -follow cbc Supratherapeutic INR: -INR in the ED was 3.9 -holding home Coumadin -daily INR Acute UTI: -continue ceftriaxone -UCx growing gram - rods -blood cultures negative nausea/vomiting improving ct abdomen with no acute pathology History of atrial fibrillation: -holding home Coumadin -patient is not using any rate control medications Chronic anticoagulation: -patient was taking Coumadin for atrial fibrillation -holding Coumadin due to GI bleed attending: dr. melgoza dvt ppx - mechanical devices due to rectal bleeding
[2021-03-21] MEDS: 0.9 % Sodium Chloride Flush 3 ML SYRINGE IVFLUSH ×2 (15:08→19:43)
--- NOTE | 2021-03-21 19:26 | PM.EVENT ---
Event Note Date of Service: 03/21/21 Event Note: GI Consult-Full note dictated Imp: 75 yo female on Coumadin for Afib presenting with a self-limited lower GI bleed with a single episode of rectal bleeding yesterday morning followed by some abdominal cramps, nausea, and a single episode of nonbloody vomitus. She reports feeling well since admission here. She denies any chronic GI complaints. She has had no further abdominal discomfort, N/V, BM's, nor rectal bleeding since yesterday morning. She has tolerated a liquid diet and is hungry. Her workup with labs and CT scan has been nonrevealing. She describes a negative colonoscopy at [facility] by Dr. Hong in 04/2020. Her abdominal exam is benign. She appears very stable presently. Diff dx: Self-limited gastroenteritis with hemorrhoidal bleeding. Diverticular bleeding. Ischemic colitis. Rec: At this point I do not think she needs any endoscopic intervention given the clinical history, no further bleeding, and the reported negative colonoscopy < 1 year ago. If things remain stable overnight I would recommend advancing her diet and observing her. I would hold the Coumadin until her INR drifts down to a therapeutic range. If she begins having recurrent active lower bleeding I would then recommend she be treated with Vit K and FFP to completely reverse the Coumadin, and undergo a stat CT-angiogram or Nuc med bleeding scan. If things remain stable here I did advise her to F/U with her PCP and her GI MD at [facility]. Please call me over the weekend if she has any problems I can be of assistance with. D/W patient in detail. Thanks.
[2021-03-21] MEDS: cefTRIAXone sodium 1 GM in 0.9 % Sodium Chloride 50 ML IV (19:43)
--- NOTE | 2021-03-21 22:56 | CONS_ITS ---
DATE OF SERVICE: 03/21/2021 REASON FOR CONSULTATION: Rectal bleeding. HISTORY OF PRESENT ILLNESS: This has been obtained from the patient and the medical record. The patient is a 75-year-old female, who describes that she was in her usual state of health up until yesterday morning when she had the urge to go to the bathroom and noticed that she had some bright red blood on her pad and then had a soft bowel movement mixed with fresh blood. She denied any associated abdominal pain, no rectal pain at that time. There was no melena. After cleaning herself up, she reports that she was feeling well up until later that morning when she began to feel poorly with some abdominal cramping. She did not have any further bleeding. However, due to feeling worse, she came to the ER. In the ER, she describes a single episode of nonbloody vomitus. She did have some abdominal cramps. Since arrival in the ER and subsequent admission to the hospital, she reports that she is actually feeling much better. She denies any further episodes of bleeding since the single episode at home. She has had no further vomiting. She denies any abdominal pain. She has been tolerating a liquid diet and is hungry. Prior to yesterday, she reports that she was feeling well from a GI standpoint. She denies any chronic GI complaints. She describes a negative colonoscopy in April [address] Hong at [facility]. She describes a colonoscopy prior to that with some polyps removed. She is on chronic Coumadin, but denies any use of aspirin nor NSAIDs. She denies any significant heartburn, dysphagia, nor anorexia. She denies any preceding history of abdominal pain, jaundice, nor weight loss. She denies any history of ulcer disease. She denies any known family history of colorectal cancer. MEDICATIONS: At home included atorvastatin, Coumadin, and diclofenac gel. Her medications here in the hospital include acetaminophen, ceftriaxone, Zofran, and pantoprazole. PAST MEDICAL HISTORY: Atrial fibrillation. Hyperlipidemia. Arthritis. She has had toe surgery, knee surgery, and hernia surgery. She also describes a distant history of hysterectomy. She denies history of [place], diabetes, stroke, nor lung disease. SOCIAL HISTORY: She lives by herself. She does not smoke nor use any significant amounts of alcohol. FAMILY HISTORY: Noncontributory. REVIEW OF SYSTEMS: CONSTITUTIONAL: Prior to yesterday, she was feeling well with good energy and good appetite. SKIN: No rash. No pruritus. HEENT: Negative. CARDIAC: No chest pain. PULMONARY: No cough. No hemoptysis. GASTROINTESTINAL: As above. URINARY: No dysuria. No hematuria. PHYSICAL EXAMINATION: GENERAL: The patient is a pleasant, alert, comfortable-appearing female. SKIN: Warm and dry. HEENT: Anicteric sclerae. NECK: Supple. CHEST: Clear. CARDIAC: Normal S1 and S2. ABDOMEN: Soft, nondistended, nontender without organomegaly or mass. EXTREMITIES: Without edema. LABORATORY DATA: Hemoglobin was 17.5 yesterday and 16.1 today. MCV 92. Platelets 241,000. White blood cell count was 15.3 yesterday and 10.4 today. PT was 45.9 yesterday and 40.3 today with INR of 3.5. Normal electrolytes with a BUN of 17, creatinine 0.8. Stool was heme positive. COVID was negative. CAT scan of her abdomen and pelvis describes a duodenal diverticulum, sigmoid diverticulosis, but no evidence of any diverticulitis, bleeding, nor any other significant abnormality. IMPRESSION: Given the patient's clinical history, it does not appear that she is having any significant GI bleeding presently. It appears that she had an episode of a self-limited bleed and perhaps some gastroenteritis. Her bleeding may have been from the hemorrhoid or possibly diverticular. Given the description and her stable hemoglobin, I doubt this was anything other than hemorrhoidal however. Etiologies such as ischemic colitis or neoplasm seem even less likely. At this point, since she appears so stable, I would hold off on any endoscopic intervention, particularly since she describes a negative colonoscopy less than 1 year ago. If things remain stable overnight, I think her diet can be advanced. I would hold her Coumadin until the INR drifts down to a therapeutic range. However, she began having significant and active recurrent bleeding, I would then treat her with vitamin K and FFP to completely reverse the Coumadin and obtain either a CT angiogram or stat nuclear medicine bleeding scan for further evaluation. However, if things remain as stable as a presently are, then I do not think any further workup would be needed from a GI standpoint. I did advise her to follow up with her primary care physician and/or her GI physician at [facility] once she is discharged. Please call me over the weekend if she has any problems that I can be of assistance with. This has all been discussed with the patient in detail and she is comfortable with the plan. Thank you for the consultation. MD ALEX Umaña/KAYLAN / [phone]
[2021-03-22 03:35] VITALS: BP 120/60; PULSE 80; RESP 18; TEMP 36.4; O2SAT 96
[2021-03-22] MEDS: Pantoprazole Sodium 40 MG/10 ML VIAL IVPUSH (05:28)
[2021-03-22 06:58] LABS: Anion Gap 12 (12-20); Blood Urea Nitrogen 14 mg/dL (9-16); Calcium 8.8 mg/dL (8.4-10.2); Carbon Dioxide 27 mmol/L (22-29); Chloride 107 mmol/L (96-108); Estimated Glomerular Filt Rate > 60; Glucose Random 82 mg/dL (60-115); Potassium 4.1 mmol/L (3.3-5.1); Sodium 142 mmol/L (135-145)
[2021-03-22 07:00] LABS: Mean Corpuscular Hemoglobin 31.5 pg (27.0-33.0); Mean Corpuscular Volume 92.5 fL (80-98); Mean Platelet Volume 9.8 fL (9.4-12.3); Platelet Count 200 X10*3/uL (160-400); Red Blood Count 5.08 X10*6/uL (4.20-5.50); Red Cell Distribution Width 12.9 % (11.0-16.0); White Blood Count 7.6 X10*3/uL (4.8-10.8)
[2021-03-22 07:01] LABS: INTERNATIONAL NORM RATIO 2.3 (0.9-1.1); Prothrombin Time 26.7 SEC (9.9-13.0)
[2021-03-22 07:07] VITALS: BP 151/88; PULSE 83; RESP 18; TEMP 36.3; O2SAT 97
[2021-03-22] MEDS: 0.9 % Sodium Chloride Flush 3 ML SYRINGE IVFLUSH (09:35)
[2021-03-22 11:28] VITALS: BP 128/80; PULSE 83; RESP 18; TEMP 36.9; O2SAT 95
--- NOTE | 2021-03-22 12:10 | P.DS_ITS ---
DS: Providers Provider Date of Service: 03/22/21 Date of admission: 03/21/21 03:56 Primary care physician: Unknown Physician Consults: 03/21/21 03:58 Consult to Gastroenterology Routine Consulting Provider: Cortez Calvo Reason for consultation: GI Bleed Has provider been notified: No DS: Diagnosis Discharge Diagnosis (1) GI bleed: Status: Acute (2) Supratherapeutic INR: Status: Acute (3) Acute UTI: Status: Acute (4) A-fib: Status: Acute (5) Chronic anticoagulation: Status: Acute DS: Medications Discharge Medications Home Medications: Home Medications Medication Instructions Recorded Confirmed atorvastatin 10 mg tablet 1 tab PO DAILY 03/21/21 03/21/21 diclofenac sodium 1 % topical gel 4 g TOPICAL QID PRN 03/21/21 03/21/21 warfarin 2.5 mg tablet 2.5 mg PO DAILY 03/21/21 03/21/21 Previous Rx's Medication Instructions Recorded cefuroxime axetil 500 mg tablet 500 mg PO Q12H #14 tab 03/22/21 DS: Summary Hospital Course Hospital Course: [place] [id number] Internal Med History&Physical Signed Patient: Yolanda Hill MR#: [id number] : 1945 [place] as per admitting provider 75-year-old female with history of atrial fibr illation (on Coumadin), who presented with red blood per rectum. History is obtained from the patient and from ED notes. Patient endorses that she was scheduled to have knee replacement surgery in the near future, therefore she had a cortisone injection yesterday.? Initially she was doing well, but in the bathroom she saw blood on her urinary pad (which she wears in case of accidents).? She had a bowel movement later that day, when she went to wipe it was ?full of red blood .? Later in the day, she also experienced sudden onset of diffuse abdominal pain, headache, she felt hot and nauseous.? She called her boyfriend, who who brought to the ED.? In the ED waiting room, she did had an event where she vomited (but she attributes this to a postnasal drip, and states that she has been having sinus pressure lately).? On further review of system questions, she does also endorse some lightheadedness.? Otherwise, she denies chest pain, shortness of breath, fever or chills, she denies sick contacts or NSAID use. In the ED, pertinent findings include blood pressure as high as 169/99, WBC 15.3, hemoglobin 17.5, BNP 363, INR was supratherapeutic at 3.9.? Her urinalysis was positive for UTI.? Her stool occult blood was positive.? And her CT of the abdomen did reveal a 6.2 cm large duodenal diverticulum, otherwise no evidence of ongoing GI hemorrhage. In the ED, she was treated with IV ceftri axone, 1 L IV fluid bolus, and IV ppi . Supratherapeutic INR. Warfarin held. GI bleed. Seen and evaluated by Gastroenterology. Bleeding seems likely secondary to hemorrhoidal bleeding versus gastroenteritis. There was no need for inpatient gastrological workup, she had no further bleeding noted. UTI. Urine cx showed Klebsiella pneumonia, treated with Rocephin while inpatient. Will go home with ceftin for 7 days. Time Spent with Patient Time attestation: Total time spent providing and/or coordinating discharge se rvices: Discharge coordination time: Greater than 30 minutes Quality: Stroke Does the patient have a stroke diagnosis?: No Physical Exam Vital Signs: Vital Signs: Last Vital Signs Temp 98.4 F 03/22/21 11:28 Pulse 83 03/22/21 11:28 Resp 18 03/22/21 11:28 BP 128/80 03/22/21 11:28 Pulse Ox 95 03/22/21 11:28 Body Mass Index 33.9 DS: Data Data Completed and Pending Labs on day of discharge: Laboratory Results - last 24 hr 03/22/21 03/22/21 03/22/21 05:31 05:31 05:31 WBC 7.6 RBC 5.08 Hgb 16.0 Hct 47.0 MCV 92.5 MCH 31.5 MCHC 34.0 RDW 12.9 Plt Count 200 MPV 9.8 Absolute Nucleated RBC 0.000 Nucleated RBC % (auto) 0.0 PT 26.7 H D INR 2.3 H Sodium 142 Potassium 4.1 Chloride 107 Carbon Dioxide 27 Anion Gap 12 BUN 14 Creatinine 0.77 Estim Creat Clear Calc 68.0 Estimated GFR > 60 Random Glucose 82 Calcium 8.8 Preliminary micro results at discharge 03/20/21 21:11 Blood Culture - Preliminary Blood - Venous No growth after 24 hours. 03/20/21 21:11 Blood Culture - Preliminary Blood - Venous No growth after 24 hours. Discharge Plan Discharge Anticipated Discharge Date/Time: 03/22/21 11:29 Patient Disposition: Home, Self-Care Discharge Diagnosis: GI bleed UTI Referrals: Cortez Calvo [Physician] - None (as needed for rectal bleeding ) Discharge Medications: New cefuroxime axetil 500 mg tablet 500 mg PO Q12H Qty: 14 RF: 0 Continued warfarin 2.5 mg tablet 2.5 mg PO DAILY RF: 0 diclofenac sodium 1 % gel 4 g topical QID PRN (Reason: pain) RF: 0 atorvastatin 10 mg tablet 1 tab PO DAILY RF: 0 Discharge Orders: Discharge Order (Routine); Ordered 03/22/21 Ordered By: Alissa Louis Diet: advance to usual diet Activity on Discharge: As tolerated Stand Alone Forms: Patient Portal Discharge page Care Plan Goals: Resolution of GI bleed, urinary infection Health Concerns: GI bleed UTI Plan of Treatment: Take antibiotic as prescribed for UTI Follow up with your primary care provider as needed Assessment: See discharge summary Discharge Date/Time: 03/22/21 13:35
== END 2021-03-22 13:35 | disposition home or self-care (01) ==
LOC: HO.ED 23:57 → HO.EDOVER 03-21 04:03 → HO.IMC 03-21 14:05
PROVIDERS: Nurse Practitioner Family; Physician Assistant Medical; Admitting Provider Internal Medicine; Emergency Provider Internal Medicine; PCP Internal Medicine; Visit Provider Family Medicine
DX: K92.2 Gastrointestinal hemorrhage, unspecified (principal); R79.1 Abnormal coagulation profile; N39.0 Urinary tract infection, site not specified; I48.91 Unspecified atrial fibrillation; E86.0 Dehydration; I10 Essential (primary) hypertension; R51.9 Headache, unspecified; E78.5 Hyperlipidemia, unspecified; Z20.822 Contact with and (suspected) exposure to COVID-19; Z79.01 Long term (current) use of anticoagulants; Z79.899 Other long term (current) drug therapy
CPT/HCPCS: 36415; 70450; 74178; 80048; 81001; 82272; 83605; 83880; 84484; 85025; 85027; 85610; 87040; 87086; 87088; 87186; 87635; 93005; 96361; 96365; 96366; 96375; 96376; 99219; 99220; 99285; J0696; Q9967

== ENCOUNTER 2022-09-28 13:00 | Outpatient (RCR) | payer MEDICARE, SELFPAY | END 2022-09-28 14:35 | disposition home or self-care (01) | LOC: HO.PT 13:00 | PROVIDERS: PCP Internal Medicine; Visit Provider Orthopaedic Surgery | DX: M17.0 Bilateral primary osteoarthritis of knee (principal) | CPT/HCPCS: 97110; 97162; 97530 ==

== ENCOUNTER 2023-01-21 11:00 | Outpatient (RCR) | payer MEDICARE, SELFPAY | END 2023-01-21 12:42 | disposition home or self-care (01) | LOC: HO.PT 11:00 | PROVIDERS: PCP Internal Medicine; Visit Provider Orthopaedic Surgery | DX: Z96.651 Presence of right artificial knee joint (principal) | CPT/HCPCS: 97110; 97112; 97116; 97162; 97530 ==

== ENCOUNTER 2023-11-11 12:00 | Outpatient (RCR) | payer MEDICARE, SELFPAY | END 2023-11-11 14:55 | disposition home or self-care (01) | LOC: HO.PT 12:00 | PROVIDERS: PCP Internal Medicine; Visit Provider Orthopaedic Surgery | DX: M19.90 Unspecified osteoarthritis, unspecified site (principal) | CPT/HCPCS: 97110; 97116; 97161; 97530 ==

== ENCOUNTER 2023-11-28 22:23 | Emergency (ER) | payer MEDICARE, SELFPAY ==
--- NOTE | ~2023-11-28 | XR_ITS ---
EXAMINATION: XR LEFT HIP WITH AP PELVIS XR KNEE, LEFT CLINICAL INFORMATION: Pain. COMPARISON: CT dated 03/20/2021 TECHNIQUE: AP view of the pelvis and a single view of the left hip were obtained. AP and lateral views of the left knee. FINDINGS: Pelvis and left hip: Bones are osteopenic. No fracture or malalignment. There is moderate osteophyte is normal left hip with nonuniform joint space narrowing and marginal osteophytes as well as subchondral sclerosis. More mild osteoarthritis in the right hip. Moderate osteoarthritis in both SI joints. Degenerative spondylosis in the lower lumbar spine. Chondral calcinosis the pubic symphysis with mild osteoarthritis. No acute soft tissue findings. Left knee: There is a periprosthetic fracture at the left distal femur with impaction of the distal femoral diaphysis into the metaphysis by approximately 3.5 cm. There is posterior displacement of the distal fracture fragment by at least 2 cm. Examination is suspected at the level of the metaphysis and epiphysis. Tibial component appears appropriately positioned. Soft tissues are swollen. XR/XR knee LT 2V IMPRESSION: 1. Displaced, impacted periprosthetic fracture of the left distal femur. 2. No acute fracture or malalignment at the pelvis and left hip. Sensitivity is slightly limited by osteopenia 3. 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
--- NOTE | ~2023-11-28 | XR_ITS ---
EXAMINATION: XR LEFT HIP WITH AP PELVIS XR KNEE, LEFT CLINICAL INFORMATION: Pain. COMPARISON: CT dated 03/20/2021 TECHNIQUE: AP view of the pelvis and a single view of the left hip were obtained. AP and lateral views of the left knee. FINDINGS: Pelvis and left hip: Bones are osteopenic. No fracture or malalignment. There is moderate osteophyte is normal left hip with nonuniform joint space narrowing and marginal osteophytes as well as subchondral sclerosis. More mild osteoarthritis in the right hip. Moderate osteoarthritis in both SI joints. Degenerative spondylosis in the lower lumbar spine. Chondral calcinosis the pubic symphysis with mild osteoarthritis. No acute soft tissue findings. Left knee: There is a periprosthetic fracture at the left distal femur with impaction of the distal femoral diaphysis into the metaphysis by approximately 3.5 cm. There is posterior displacement of the distal fracture fragment by at least 2 cm. Examination is suspected at the level of the metaphysis and epiphysis. Tibial component appears appropriately positioned. Soft tissues are swollen. XR/XR hip LT w PEL1V IMPRESSION: 1. Displaced, impacted periprosthetic fracture of the left distal femur. 2. No acute fracture or malalignment at the pelvis and left hip. Sensitivity is slightly limited by osteopenia 3. 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
--- NOTE | ~2023-11-28 | CT_ITS ---
EXAMINATION: HEAD CT WITHOUT CONTRAST CERVICAL SPINE CT WITHOUT CONTRAST CLINICAL INFORMATION: Coumadin. Pain. Trauma. COMPARISON: 03/20/2021 TECHNIQUE: Contiguous axial imaging of the head was performed without the administration of IV contrast. Axial multidetector volumetric images were also performed through the cervical spine without intravenous contrast. Multiplanar reconstructed images in coronal and sagittal orientations were submitted. This CT examination was performed using dose optimization techniques as appropriate, variously including the following: *Automated exposure control *Adjustment of mA and/or kV according to patient size (this includes techniques or standardized protocols for targeted exams where dose is matched to indication/reason for exam; i.e. extremities or head) *Use of iterative reconstruction technique DOSE: 959 mGy-cm FINDINGS: HEAD: There is no evidence of acute intracranial hemorrhage or territorial infarction. No abnormal mass-effect or midline shift. No extra-axial fluid collections. Santos to white matter differentiation is well preserved. Mild to moderate enlargement of the ventricles, sulci, and extra-axial CSF spaces is indicative of parenchymal volume loss. Symmetric calcifications are present in the basal ganglia. Multiple areas of hypoattenuation in the subcortical and periventricular white matter are most consistent with chronic microangiopathic changes. Calcific atherosclerosis is present within the cavernous segments of the internal carotid arteries. Degenerative arthritis is present in the temporomandibular joints bilaterally. No fracture or malalignment. The sinuses and mastoid air cells are clear. CERVICAL SPINE: Vertebral body heights are normal. No fractures of the vertebral bodies or posterior elements. There is subtle chronic grade 1 anterolisthesis of C7 on T1 by 2 mm. No additional spondylolisthesis. Mild degenerative changes are present at the craniocervical and atlantoaxial articulations, though normal alignment is maintained. Moderate degenerative disc disease is present at C3-C4, C4-C5, and C5-C6 with endplate uncovertebral osteophytes as well as loss of vertebral disc height. Mild multilevel facet arthropathy. There is a small amount of calcium deposition around the spinous process at the level of T1. Posterior disc osteophyte complexes are present at C4-C5 and C5-C6, producing at least mild central canal narrowing. No foraminal encroachment is present on the left at C4-C5 and C5-C6. No significant paravertebral soft tissue swelling. Atherosclerotic calcifications are present in the carotid arteries. Imaged portions of the lung apices are clear. CT/CT cervical spine wo IV con IMPRESSION: 1. No acute intracranial pathology. 2. No acute fracture or acute malalignment in the cervical spine. 3. Mild to moderate parenchymal volume loss and chronic white matter microangiopathy. 4. Moderate multilevel degenerative disc disease in the cervical spine with left foraminal encroachment at C4-C5 and C5-C6.
[2023-11-28 22:36] VITALS: BP 132/100; BP 144/85; PULSE 119; PULSE 93; RESP 20; TEMP 37.2; O2SAT 100; O2SAT 96; BMI 31.9
[2023-11-28 22:46] VITALS: BP 138/85; PULSE 92; RESP 18; TEMP 36.6; O2SAT 99
--- NOTE | 2023-11-28 22:56 | ED_ITS ---
HPI - Fall General Chief Complaint: Extremity Injury, Lower Stated Complaint: slid off bed 2 wks after knee surgery,01/09 pain Time Seen by Provider: 11/28/23 22:43 Source: patient Mode of arrival: EMS Limitations: no limitations History of Present Illness HPI Narrative: 78 yo female with PMH of UTI, HTN, HLD, afib on coumadin who states she just had L TKR on 11/[address] Clinton through [facility] and is back at home - states she uses a walker but slipped trying to get out of bed tonight and landed on her chin and L knee - she had no LOC was on ground for 20 min. Since then she could not get up. She notes she really cannot get around well at home and is supposed to get physical therapy but she cannot even get to the appointment. Tonight is the first night she fell. She notes she does not need pain medications at this time. MD complaint: fall Onset (ago): hour(s) (1) Fall from: standing Fall witnessed: no Place fall occurred: home Loss of consciousness: none Prolonged down time: no Symptoms prior to fall: none Context: tripped/slipped Location of injury: head Location of injury - extremities: left: knee Severity: mild Quality: dull Associated symptoms (after fall): unable to walk Related Data Home Medications ?Medication ?Instructions ?Recorded ?Confirmed atorvastatin 10 mg tablet 1 tab PO DAILY 03/21/21 03/21/21 diclofenac sodium 1 % topical gel 4 g topical QID PRN pain 03/21/21 03/21/21 warfarin 2.5 mg tablet 2.5 mg PO DAILY 03/21/21 03/21/21 Previous Rx's ?Medication ?Instructions ?Recorded cefuroxime axetil 500 mg tablet 500 mg PO Q12H #14 tabs 03/22/21 Allergies Allergy/AdvReac Type Severity Reaction Status Date / Time No Known Allergies Allergy Verified 11/28/23 22:40 Review of Systems 2 Review of Systems: Constitutional : No Fever, No Chills ENT/Mouth : No Ear Pain, No Hoarseness, No sore throat Eyes: No Eye Pain, No Swelling, No Redness, No Foreign Body Cardiovascular : No Chest Pain, No SOB Respiratory : No Cough, No Dyspnea Gastrointestinal : No Nausea, No Vomiting, No Diarrhea, No abdominal Pain Genitourinary : No Dysuria, No Hematuria Musculoskeletal : positive joint pain, No Myalgias, No Joint Swelling Skin : No Skin lacerations, No rash, pos abrasion Neuro : No Weakness, No Numbness, No Loss of Consciousness, No Dizziness, No Headache All other systems reviewed and are negative [facility] Past Medical History Attestation statement: The following information was validated with the patient. Source: old records reviewed Medical History Chronic anticoagulation Hypertension A-fib Surgical History H/O hernia repair Social History Social History Alcohol intake: never Patient Tobacco Use Status: Never used Tobacco Smoked in Last 30 Days: No Advance Directives: No Advance Directives Information Provided: No Physical Exam 2 Vital Signs: Vital Signs: Last Vital Signs Temp 98.4 F 11/29/23 02:25 Pulse 96 11/29/23 02:25 Resp 18 11/29/23 02:25 BP 131/66 11/29/23 02:25 Pulse Ox 97 11/29/23 02:25 O2 Del Method Room Air 11/29/23 02:25 BMI result Body Mass Index 31.9 Appearance: Alert. Oriented X3. No acute distress. Eyes: Pupils equal, round and reactive to light. ENT: Pharynx normal. abrasion on R lower chin Neck: Normal inspection. Neck supple. CVS: Normal heart rate and rhythm. Pulses normal. Chest: no rib ttp Respiratory: No respiratory distress. Breath sounds normal. Abdomen: Soft and nontender. Skin: Skin warm and dry. Normal skin color. Normal skin turgor. Extremities: L left mild lower ext edema - 2+ DP pulse, able to wiggle toes, SILT intact, surgical dressing intact, scant area of dried blood midline of dressing but otherwise c/d/i not saturated. compartments are soft and compressible, she does have L hip ttp. Neuro: Oriented X 3. No motor deficit. No sensory deficit. Course Course Course Narrative: given recent surgery will consult her orthopedics team at [address] Medical Decision Making Medical Decision Making MDM Narrative: 78 yo female with PMH of UTI, HTN, HLD, afib on coumadin here with mechanicall fall has chin abrasion and L knee pain on surgical knee - at this time she is NV intact and surgical dressing is intact will obtain labs, INR, CT head/cspine given age and trauma to the chin. xray of L knee and L hip. If negative will keep overnight for PT/CM she is a fall risk and admits she cannot get around well at home and cannot even get to her PT appointments. Differential Diagnosis Differential Diagnoses: The differential diagnosis associated with the presentation includes soft tissufe, fall, fracture, head injury Admission/Observation Consideration of admission/observation: Escalation of care including admission/observation considered call to [facility] Transfer line [id number] Dr. Oconnor to go to ER per transfer line and orthopedics Attending. Consult Healthcare Provider Management of the patient was discussed with: Infrastructure Tech Lab Data [facility] Lab Attestation statement: I reviewed the patient's lab results. 11/28/23 23:41 11/28/23 23:41 Labs: Lab Results 11/28/23 Range/Units 23:41 WBC 12.3 H (4.8-10.8) X10*3/uL RBC 4.19 L (4.20-5.50) X10*6/uL Hgb 12.7 (12.0-16.0) g/dl Hct 37.9 (37.0-47.0) % MCV 90.5 (80.0-98.0) fL MCH 30.3 (27.0-33.0) pg MCHC 33.5 (31.0-35.0) g/dl RDW 14.1 (11.0-16.0) % Plt Count 337 (160-400) X10*3/uL MPV 9.3 L (9.4-12.3) fL Immature Gran % (Auto) 0.7 H (0.0-0.4) % Neut % (Auto) 90.0 H (45-73) % Lymph % (Auto) 2.1 L (20-40) % [place] % (Auto) 6.7 (2-11) % Eos % (Auto) 0.2 (0-4) % Baso % (Auto) 0.3 (0-2) % Lymph # (Auto) 0.3 L (1.2-4.9) X10*3/uL [place] # (Auto) 0.8 (0.1-1.2) X10*3/uL Eos # (Auto) 0.0 (0.0-0.4) X10*3/uL Baso # (Auto) 0.0 (0.0-0.2) X10*3/uL Abs Immat Gran (auto) 0.09 H (0.00-0.03) X10*3/uL Absolute Neuts (auto) 11.1 H (2.0-8.3) x10*3/uL Absolute Nucleated RBC 0.000 (0.0-0.012) X10*3/uL Nucleated RBC % (auto) 0.0 (0.0-0.2) /100WBC PT 12.9 (11.1-13.3) SEC INR 1.1 (0.9-1.1) Sodium 137 (135-145) mmol/L Potassium 4.0 (3.3-5.1) mmol/L Chloride 104 (96-108) mmol/L Carbon Dioxide 22 (22-29) mmol/L Anion Gap 15 (12-20) BUN 21 H (9-16) mg/dL Creatinine 0.86 (0.5-1.4) mg/dL Estim Creat Clear Calc 56.3 Estimated GFR > 60 Random Glucose 117 H (60-115) mg/dL Calcium 9.0 (8.4-10.2) mg/dL Magnesium 1.6 (1.6-2.6) mg/dL Total Bilirubin 1.5 H (0.0-1.0) mg/dL Direct Bilirubin 0.7 H (0.0-0.5) mg/dL AST 22 (5-31) U/L ALT 16 (0-31) U/L Alkaline Phosphatase 76 (39-117) U/L Total Protein 6.2 L (6.5-8.0) g/dL Albumin 3.4 L (3.5-5.0) g/dL Influenza Type A (PCR) NEGATIVE (Negative) Influenza Type B (PCR) NEGATIVE (Negative) RSV RNA Qual (PCR) NEGATIVE (Negative) SARS-CoV-2 RNA (RT-PCR) NEGATIVE (Negative) Independent Interpretation I performed an independent interpretation of an: Plain X-Ray (periprosthetic fracture - has been in her brace since arrival) and CT Scan (no cervical spine fracture, no ICH) Radiology Impression Discussion of test interpretation with radiology: I have reviewed the radiologist's reading. Independent Historian Clinical information obtained from an independent historian. History obtained from or confirmed by: EMS External Record Review External record reviewed: Inpatient record Critical Care Time Critical Care Time Critical Care Time: Yes Total Critical Care Time: 40 Attestation: review of records, consult, transfer to tertiary center I attest to this time spent taking care of the patient Discharge Plan Discharge Clinical Impression: Periprosthetic fracture around internal prosthetic knee joint Patient Disposition: [facility] Transfer Details: [facility] Prescriptions: No Action warfarin 2.5 mg tablet 2.5 mg PO DAILY diclofenac sodium 1 % gel 4 g topical QID PRN (Reason: pain) atorvastatin 10 mg tablet 1 tab PO DAILY cefuroxime axetil 500 mg tablet 500 mg PO Q12H Qty: 14 0RF Interventions: Acute Care Transfer Worksheet (ED) Last Done: 11/29/23 02:25 Discharge Date/Time: 11/29/23 02:26 Print Language: Bahamian
[2023-11-28 23:47] LABS: Basophils Percent Auto 0.3 % (0-2); Eosinophils Percent Auto 0.2 % (0-4); Hematocrit 37.9 % (37.0-47.0); Hemoglobin 12.7 g/dl (12.0-16.0); Imm Gran Abs Auto 0.09 X10*3/uL (0.00-0.03); Imm Gran Pct Auto 0.7 % (0.0-0.4); Lymphocytes Absolute Auto 0.3 X10*3/uL (1.2-4.9); Lymphocytes Percent Auto 2.1 % (20-40); MANUAL DIFF FLAG NO; Mean Corpuscular HGB Conc 33.5 g/dl (31.0-35.0); Mean Corpuscular Hemoglobin 30.3 pg (27.0-33.0); Mean Corpuscular Volume 90.5 fL (80.0-98.0); Mean Platelet Volume 9.3 fL (9.4-12.3); Monocytes Absolute Auto 0.8 X10*3/uL (0.1-1.2); Monocytes Percent Auto 6.7 % (2-11); Neutrophils Absolute Auto 11.1 x10*3/uL (2.0-8.3); Platelet Count 337 X10*3/uL (160-400); Red Blood Count 4.19 X10*6/uL (4.20-5.50); Red Cell Distribution Width 14.1 % (11.0-16.0); White Blood Count 12.3 X10*3/uL (4.8-10.8)
[2023-11-28 23:59] LABS: INTERNATIONAL NORM RATIO 1.1 (0.9-1.1); Prothrombin Time 12.9 SEC (11.1-13.3)
[2023-11-29 00:01] LABS: Alanine Aminotransferase 16 U/L (0-31); Albumin Level 3.4 g/dL (3.5-5.0); Alkaline Phosphatase 76 U/L (39-117); Anion Gap 15 (12-20); Aspartate Amino Transferase 22 U/L (5-31); Bilirubin Direct 0.7 mg/dL (0.0-0.5); Bilirubin Total 1.5 mg/dL (0.0-1.0); Blood Urea Nitrogen 21 mg/dL (9-16); Carbon Dioxide 22 mmol/L (22-29); Chloride 104 mmol/L (96-108); Creatinine Clr Calc Pharmacy 56.3; Estimated Glomerular Filt Rate > 60; Glucose Random 117 mg/dL (60-115); Magnesium 1.6 mg/dL (1.6-2.6); Sodium 137 mmol/L (135-145); Total Protein 6.2 g/dL (6.5-8.0)
[2023-11-29 00:26] LABS: Influenza A PCR NEGATIVE (Negative); Influenza B PCR NEGATIVE (Negative); Resp Syncy Virus RNA Qual PCR NEGATIVE (Negative); SARS COV2 PCR INHOUSE NEGATIVE (Negative)
[2023-11-29 01:28] VITALS: BP 131/66; PULSE 96; RESP 18; TEMP 36.9; O2SAT 94
--- NOTE | 2023-11-29 01:43 | PC.NURSE ---
nurse to nurse report given to Brianda ERWIN at [facility]
[2023-11-29 02:25] VITALS: BP 131/66; PULSE 96; RESP 18; TEMP 36.9; O2SAT 97
== END 2023-11-29 02:26 | disposition short-term general hospital (02) ==
PROVIDERS: Emergency Provider Emergency Medicine; PCP Internal Medicine
DX: S82.92XA Unspecified fracture of left lower leg, initial encounter for closed fracture (principal); M97.12XA Periprosthetic fracture around internal prosthetic left knee joint, initial encounter; S00.81XA Abrasion of other part of head, initial encounter; I10 Essential (primary) hypertension; I48.91 Unspecified atrial fibrillation; Z79.01 Long term (current) use of anticoagulants; W06.XXXA Fall from bed, initial encounter; Y93.9 Activity, unspecified; Y92.003 Bedroom of unspecified non-institutional (private) residence as the place of occurrence of the external cause; Y99.9 Unspecified external cause status; Z03.818 Encounter for observation for suspected exposure to other biological agents ruled out
CPT/HCPCS: 0241U; 51702; 70450; 72125; 73502; 73560; 80048; 80076; 83735; 85025; 85610; 99285

== ENCOUNTER 2023-12-07 05:44 | Outpatient (REF) | payer MEDICARE, SELFPAY ==
[2023-12-07 06:48] LABS: Basophils Percent Auto 0.4 % (0-2); Eosinophils Absolute Auto 0.2 X10*3/uL (0.0-0.4); Eosinophils Percent Auto 2.6 % (0-4); Hematocrit 31.3 % (37.0-47.0); Hemoglobin 10.3 g/dl (12.0-16.0); Imm Gran Abs Auto 0.04 X10*3/uL (0.00-0.03); Imm Gran Pct Auto 0.5 % (0.0-0.4); Lymphocytes Absolute Auto 0.7 X10*3/uL (1.2-4.9); Lymphocytes Percent Auto 8.7 % (20-40); MANUAL DIFF FLAG NO; Mean Corpuscular HGB Conc 32.9 g/dl (31.0-35.0); Mean Corpuscular Hemoglobin 30.3 pg (27.0-33.0); Mean Corpuscular Volume 92.1 fL (80.0-98.0); Mean Platelet Volume 9.9 fL (9.4-12.3); Monocytes Absolute Auto 0.9 X10*3/uL (0.1-1.2); Neutrophils Absolute Auto 5.6 x10*3/uL (2.0-8.3); Neutrophils Percent Auto 75.8 % (45-73); Platelet Count 238 X10*3/uL (160-400); Red Cell Distribution Width 14.6 % (11.0-16.0); White Blood Count 7.4 X10*3/uL (4.8-10.8)
[2023-12-07 06:52] LABS: Alanine Aminotransferase 14 U/L (0-31); Albumin Level 2.6 g/dL (3.5-5.0); Alkaline Phosphatase 61 U/L (39-117); Anion Gap 13 (12-20); Aspartate Amino Transferase 18 U/L (5-31); Bilirubin Total 0.9 mg/dL (0.0-1.0); Blood Urea Nitrogen 19 mg/dL (9-16); Calcium 8.3 mg/dL (8.4-10.2); Carbon Dioxide 21 mmol/L (22-29); Chloride 109 mmol/L (96-108); Estimated Glomerular Filt Rate > 60; Glucose Random 96 mg/dL (60-115); Potassium 4.2 mmol/L (3.3-5.1); Sodium 139 mmol/L (135-145); Total Protein 5.1 g/dL (6.5-8.0)
[2023-12-07 07:03] LABS: INTERNATIONAL NORM RATIO 1.1 (0.9-1.1); Prothrombin Time 13.2 SEC (11.1-13.3)
== END 2023-12-07 05:45 | disposition home or self-care (01) ==
LOC: HO.MMNH2L 05:44
PROVIDERS: Visit Provider Family Medicine
DX: I48.91 Unspecified atrial fibrillation (principal)
CPT/HCPCS: 36415; 80053; 85025; 85610

== ENCOUNTER 2023-12-08 05:42 | Outpatient (REF) | payer MEDICARE, SELFPAY ==
[2023-12-08 06:18] LABS: INTERNATIONAL NORM RATIO 1.1 (0.9-1.1); Prothrombin Time 12.9 SEC (11.1-13.3)
== END 2023-12-08 05:43 | disposition home or self-care (01) ==
LOC: HO.MMNH2L 05:42
PROVIDERS: Visit Provider Family Medicine
DX: I48.91 Unspecified atrial fibrillation (principal)
CPT/HCPCS: 36415; 85610

== ENCOUNTER 2023-12-09 06:43 | Outpatient (REF) | payer MEDICARE, SELFPAY ==
[2023-12-09 07:34] LABS: Prothrombin Time 12.7 SEC (11.1-13.3)
== END 2023-12-09 06:44 | disposition home or self-care (01) ==
LOC: HO.MMNH2L 06:43
PROVIDERS: Visit Provider Family Medicine
DX: I48.91 Unspecified atrial fibrillation (principal)
CPT/HCPCS: 36415; 85610

== ENCOUNTER 2023-12-10 05:35 | Outpatient (REF) | payer MEDICARE, SELFPAY ==
[2023-12-10 06:18] LABS: INTERNATIONAL NORM RATIO 1.1 (0.9-1.1); Prothrombin Time 13.4 SEC (11.1-13.3)
== END 2023-12-10 05:36 | disposition home or self-care (01) ==
LOC: HO.MMNH2L 05:35
PROVIDERS: Visit Provider Family Medicine
DX: I48.91 Unspecified atrial fibrillation (principal)
CPT/HCPCS: 36415; 85610

== ENCOUNTER 2023-12-13 06:14 | Outpatient (REF) | payer MEDICARE, SELFPAY ==
[2023-12-13 06:12] LABS: MANUAL DIFF FLAG NO
[2023-12-13 07:08] LABS: Prothrombin Time 24.9 SEC (11.1-13.3)
[2023-12-13 07:09] LABS: Basophils Percent Auto 0.7 % (0-2); Eosinophils Absolute Auto 0.2 X10*3/uL (0.0-0.4); Eosinophils Percent Auto 4.1 % (0-4); Hematocrit 33.1 % (37.0-47.0); Hemoglobin 10.7 g/dl (12.0-16.0); Imm Gran Abs Auto 0.04 X10*3/uL (0.00-0.03); Imm Gran Pct Auto 0.7 % (0.0-0.4); Lymphocytes Absolute Auto 0.6 X10*3/uL (1.2-4.9); Lymphocytes Percent Auto 10.6 % (20-40); Mean Corpuscular HGB Conc 32.3 g/dl (31.0-35.0); Mean Corpuscular Hemoglobin 29.3 pg (27.0-33.0); Mean Corpuscular Volume 90.7 fL (80.0-98.0); Mean Platelet Volume 9.7 fL (9.4-12.3); Monocytes Absolute Auto 0.6 X10*3/uL (0.1-1.2); Monocytes Percent Auto 10.6 % (2-11); Neutrophils Absolute Auto 4.1 x10*3/uL (2.0-8.3); Neutrophils Percent Auto 73.3 % (45-73); Platelet Count 236 X10*3/uL (160-400); Red Blood Count 3.65 X10*6/uL (4.20-5.50); Red Cell Distribution Width 14.6 % (11.0-16.0); White Blood Count 5.6 X10*3/uL (4.8-10.8)
[2023-12-13 07:26] LABS: Anion Gap 15 (12-20); Blood Urea Nitrogen 17 mg/dL (9-16); Calcium 8.5 mg/dL (8.4-10.2); Carbon Dioxide 20 mmol/L (22-29); Chloride 110 mmol/L (96-108); Estimated Glomerular Filt Rate > 60; Glucose Random 84 mg/dL (60-115); Potassium 4.3 mmol/L (3.3-5.1); Sodium 141 mmol/L (135-145)
== END 2023-12-13 06:15 | disposition home or self-care (01) ==
LOC: HO.MMNH2L 06:14
PROVIDERS: Visit Provider Family Medicine
DX: I48.91 Unspecified atrial fibrillation (principal)
CPT/HCPCS: 36415; 80048; 85025; 85610

== ENCOUNTER 2023-12-17 06:10 | Outpatient (REF) | payer MEDICARE, SELFPAY ==
[2023-12-17 06:35] LABS: INTERNATIONAL NORM RATIO 1.6 (0.9-1.1); Prothrombin Time 19.8 SEC (11.1-13.3)
== END 2023-12-17 06:11 | disposition home or self-care (01) ==
LOC: HO.MMNH2L 06:10
PROVIDERS: Visit Provider Family Medicine
DX: I48.91 Unspecified atrial fibrillation (principal)
CPT/HCPCS: 36415; 85610

== ENCOUNTER 2023-12-20 05:55 | Outpatient (REF) | payer MEDICARE, SELFPAY ==
[2023-12-20 05:44] LABS: MANUAL DIFF FLAG NO
[2023-12-20 06:12] LABS: Basophils Percent Auto 0.7 % (0-2); Eosinophils Absolute Auto 0.3 X10*3/uL (0.0-0.4); Hematocrit 34.7 % (37.0-47.0); Hemoglobin 11.1 g/dl (12.0-16.0); Imm Gran Abs Auto 0.03 X10*3/uL (0.00-0.03); Imm Gran Pct Auto 0.7 % (0.0-0.4); Lymphocytes Absolute Auto 0.7 X10*3/uL (1.2-4.9); Lymphocytes Percent Auto 15.5 % (20-40); Mean Corpuscular Hemoglobin 29.6 pg (27.0-33.0); Mean Corpuscular Volume 92.5 fL (80.0-98.0); Mean Platelet Volume 9.4 fL (9.4-12.3); Monocytes Absolute Auto 0.5 X10*3/uL (0.1-1.2); Neutrophils Percent Auto 67.1 % (45-73); Platelet Count 270 X10*3/uL (160-400); Red Blood Count 3.75 X10*6/uL (4.20-5.50); Red Cell Distribution Width 15.3 % (11.0-16.0); White Blood Count 4.5 X10*3/uL (4.8-10.8)
[2023-12-20 06:22] LABS: INTERNATIONAL NORM RATIO 1.7 (0.9-1.1); Prothrombin Time 20.9 SEC (11.1-13.3)
[2023-12-20 06:40] LABS: Anion Gap 16 (12-20); Blood Urea Nitrogen 18 mg/dL (9-16); Calcium 8.6 mg/dL (8.4-10.2); Carbon Dioxide 22 mmol/L (22-29); Chloride 109 mmol/L (96-108); Estimated Glomerular Filt Rate > 60; Glucose Random 81 mg/dL (60-115); Potassium 4.5 mmol/L (3.3-5.1); Sodium 142 mmol/L (135-145)
== END 2023-12-20 05:56 | disposition home or self-care (01) ==
LOC: HO.MMNH2L 05:55
PROVIDERS: Visit Provider Family Medicine
DX: I48.0 Paroxysmal atrial fibrillation (principal)
CPT/HCPCS: 36415; 80048; 85025; 85610

== ENCOUNTER 2024-04-09 20:46 | Emergency (ER) | payer MEDICARE, SELFPAY ==
--- NOTE | ~2024-04-09 | CT_ITS ---
EXAMINATION: CT PELVIS WITHOUT CONTRAST CLINICAL INFORMATION: Pain with injury COMPARISON: Left hip radiographs 11/28/2023, CT abdomen and pelvis 03/20/2020 TECHNIQUE: Helical scanning was performed with submillimeter collimation through the pelvis. Sagittal and coronal multiplanar 2-D reconstructions were obtained. This CT examination was performed using dose optimization techniques as appropriate, variously including the following: *Automated exposure control *Adjustment of mA and/or kV according to patient size (this includes techniques or standardized protocols for targeted exams where dose is matched to indication/reason for exam; i.e. extremities or head) *Use of iterative reconstruction technique DLP: 465 mGy-cm FINDINGS: There are marked degenerative changes seen included lumbosacral spine. There is mild grade 1 anterolisthesis of L4 upon L5. There is marked grade 1 anterolisthesis of L5 upon S1. No acute fractures or bony destructive lesions are seen degenerative changes are seen at the L4-L5 and L5-S1 facet joints. No pelvic fracture is seen. No hip fractures are seen. The bladder appears unremarkable aside from the presence of a tiny amount of air. Please correlate with catheterization history. The uterus is not seen. An abnormal adnexal mass is not detected. No free intraperitoneal fluid is present. The visualized bowel is unremarkable. There is diverticulosis without diverticulitis. Is no free pelvic fluid or blood. No retroperitoneal lymphadenopathy is seen. Calcific atherosclerotic changes are present in the aorta and iliac vessels. There is no evidence of an abdominal aortic aneurysm. CT/CT pelvis wo IV con IMPRESSION: 1. No evidence of an acute pelvic or hip fracture. 2. Degenerative changes in the lumbosacral spine as described above. 3. Incidental note made of colonic diverticulosis without diverticulitis and tiny amount of air in the bladder. Please correlate with catheterization history. Electronically signed by: Alonso Sawant MD 04/09/2024 10:00 PM EDT RP
--- NOTE | ~2024-04-09 | CT_ITS ---
EXAMINATION: CT HEAD WITHOUT CONTRAST CT CERVICAL SPINE WITHOUT CONTRAST CT LUMBAR SPINE WITHOUT CONTRAST CLINICAL INFORMATION: Fall. Pain. Injury. COMPARISON: CT head and cervical spine from 11/28/2023. TECHNIQUE: Contiguous axial imaging was performed from the skull base to vertex without intravenous administration of contrast. Contiguous axial imaging was performed from the upper chest through the skull base without intravenous administration of contrast. Multidetector helical imaging of the lumbar spine was obtained without intravenous contrast. Coronal and sagittal reformats were obtained at the acquisition workstation. This CT examination was performed using dose optimization techniques as appropriate, variously including the following: *Automated exposure control. *Adjustment of mA and/or kV according to patient size (this includes techniques or standardized protocols for targeted exams where dose is matched to indication/reason for exam; i.e. extremities or head). *Use of iterative reconstruction technique. DLP: 1515 mGy-cm FINDINGS: Head: There is no evidence of acute intracranial hemorrhage or edematous territorial infarction. Santos-white matter differentiation is preserved. Confluent hypoattenuation in the periventricular and deep white matter. Proportional prominence of the ventricles and sulcal spaces without evidence of obstructive hydrocephalus. No abnormal mass effect or midline shift. No extra-axial fluid collections. Small subgaleal hematoma along the right parietal bone, measuring up to 0.2 cm in depth. No associated acute osseous abnormalities. Mild mucosal thickening of the paranasal sinuses. Mild leftward nasal septal deviation. The mastoid air cells and middle ear cavities are clear. Moderate to advanced degenerative arthropathy of the temporal mandibular joints. Cervical Spine: The atlantooccipital and atlantoaxial articulations remain well aligned. Straightening of the normal cervical lordosis. Mild degenerative retrolisthesis of C3 on C4. Mild degenerative anterolisthesis of C7 on T1. Otherwise, there is anatomic alignment of the vertebral bodies and posterior elements. No evidence of acute fracture or subluxation. The vertebral body heights are maintained. Advanced degenerative disc disease from C3-C7. Facet and uncovertebral joint arthropathy leads to osseous encroachment on the neural foramina from C4-C7. There is no prevertebral soft tissue swelling. The thyroid gland and remaining cervical soft tissues are within normal limits. The lung apices demonstrate no abnormalities. Lumbar Spine: Mild left convex curvature of the lumbar spine. Degenerative grade 1 anterolisthesis of L4 on L5. Degenerative grade 1/2 anterolisthesis of L5 on S1. No evidence of acute fracture or traumatic subluxation. The vertebral body heights are maintained. Advanced degenerative disc disease at T12-L1 and L5-S1. Moderate degenerative disc disease from L1-L3 and L4-L5. No suspicious lytic or sclerotic osseous lesions. No significant abnormalities of the paraspinal musculature. Limited evaluation of the intra-abdominal structures without significant abnormalities. The abdominal aorta is of normal caliber with moderate calcific atherosclerotic disease. AXIAL SPINAL LEVELS: L1-L2: Mild diffuse disc bulge. There is moderate right and mild left facet joint arthropathy. There is mild right and the left neural foraminal stenosis. There is no demonstrated spinal canal stenosis. L2-L3: Moderate diffuse disc bulge with posterior osseous ridging. There is moderate bilateral facet joint arthropathy. There is moderate bilateral neural foraminal stenosis. There is no demonstrated spinal canal stenosis. L3-L4: Mild diffuse disc bulge. There is moderate bilateral facet joint arthropathy. There is mild bilateral neural foraminal stenosis. There is no demonstrated spinal canal stenosis. L4-L5: Moderate diffuse disc bulge exacerbated by uncovering from anterolisthesis. There is severe bilateral facet joint arthropathy. There is moderate right and mild left neural foraminal stenosis. There is no demonstrated spinal canal stenosis. L5-S1: Moderate diffuse disc bulge exacerbated by uncovering from anterolisthesis. There is severe bilateral facet joint arthropathy. There is severe right and moderate left neural foraminal stenosis. There is no demonstrated spinal canal stenosis. CT/CT cervical spine wo IV con IMPRESSION: 1. No evidence of acute intracranial hemorrhage or edematous territorial infarction. Moderate underlying microangiopathy and generalized cerebral volume loss. 2. No evidence of acute fracture or traumatic subluxation of the cervical spine. Moderate to advanced multilevel degenerative spondyloarthropathy of the cervical spine. 3. No evidence of acute fracture or traumatic subluxation of the lumbar spine. Moderate multilevel degenerative spondyloarthropathy of the lumbar spine as described in detail above. Most notably on this limited exam without intrathecal contrast, there appears to be moderate neural foraminal stenoses at L2-L3, L4-L5, and L5-S1. No demonstrated overt spinal canal stenosis. Electronically signed by: Jaziel Walters DO 04/09/2024 10:50 PM EDT
--- NOTE | 2024-04-09 20:51 | ED_ITS ---
HPI - General Adult General Chief complaint: Fall Stated complaint: Fall Time Seen by Provider: 04/09/24 22:14 Source: patient, family (son, and daughter in law), RN notes reviewed and old records reviewed Mode of arrival: wheelchair Limitations: no limitations History of Present Illness ED Provider: Junior HPI narrative: 78-year-old female with a past medical history significant for atrial fibrillation on Coumadin presents for evaluation after a fall. The patient has had several falls over the last few months. She has a history of gait instability. She has bilateral knee replacements, she has a left femur replacement after a traumatic fall The patient fell a few days ago. She attempted to apply a heating pad When she sat in the heating pad it burned her left buttocks She has pain to that area The patient also reports that she fell at about 7:00 p.m. today prior to arrival to the ED Patient states that she was in her kitchen? I am not sure what happened, but I fell down. ? She denies feeling lightheaded, weak, dizzy, she denies any chest pain, shortness of breath, palpitations She complains of lower back pain and left buttocks pain. She denies hitting her head or losing consciousness Family states that the patient is unsafe to be living at home, she has multiple falls, she lives alone. The patient required her 90-year-old boyfriend into elderly neighbor's all 3 to help lift her off the ground prior to coming to the emergency department today. The patient generally ambulates with a walker but even with a walker is somewhat unsteady Related Data Home Medications ?Medication ?Instructions ?Recorded ?Confirmed atorvastatin 10 mg tablet 1 tab PO DAILY 03/21/21 03/21/21 diclofenac sodium 1 % topical gel 4 g topical QID PRN pain 03/21/21 03/21/21 warfarin 2.5 mg tablet 2.5 mg PO DAILY 03/21/21 03/21/21 Previous Rx's ?Medication ?Instructions ?Recorded cefuroxime axetil 500 mg tablet 500 mg PO Q12H #14 tabs 03/22/21 Allergies Allergy/AdvReac Type Severity Reaction Status Date / Time No Known Allergies Allergy Verified 04/09/24 20:55 Review of Systems 2 Constitutional: Constitutional: Denies body ache(s), Denies fever(s), Reports frequent falls and Denies headache(s) Eyes: Eyes: Denies blurry vision ENT: Denies vertigo, Denies dizziness and Denies headache(s) Cardiovascular: Cardiovascular: Denies chest pain and Denies dyspnea Respiratory: Respiratory: Denies cough and Denies dyspnea Gastrointestinal: Gastrointestinal: Denies abdominal pain, Denies nausea and Denies vomiting Musculoskeletal: Musculoskeletal: Reports back pain Integumentary/Breasts: Skin/Breast: Reports erythema and Reports wounds Neurologic: Denies vertigo, Denies dizziness, Reports frequent falls and Denies headache(s) Psychiatric: Psychiatric: Denies anxiety PMFSH Past Medical History Medical History Chronic anticoagulation Hypertension A-fib Surgical History H/O hernia repair Social History Social History Alcohol intake: never Patient Tobacco Use Status: Never used Tobacco Smoked in Last 30 Days: No Use of substances other than those prescribed or required for medical reasons: No Advance Directives: No Advance Directives Information Provided: Yes Do you have a plan to hurt others: No Plan Physical Exam ED Vital Signs: Vital Signs - 24 hr 04/10/24 10:00 04/10/24 14:13 04/10/24 16:00 Temperature 98.0 F Pulse Rate 72 85 80 Respiratory Rate 30 H 14 18 Blood Pressure 150/91 H 170/110 H 145/93 H Pulse Oximetry 98 98 97 Oxygen Delivery Method Room Air Room Air Room Air 04/10/24 20:06 04/10/24 23:58 04/11/24 02:36 Temperature 98.9 F 98.3 F 98.7 F Pulse Rate 81 77 85 Respiratory Rate 21 H 20 20 Blood Pressure 136/74 149/82 H 155/94 H Pulse Oximetry 98 97 95 Oxygen Delivery Method Room Air Room Air Room Air 04/11/24 05:12 Temperature 98.5 F Pulse Rate 86 Respiratory Rate 20 Blood Pressure 141/85 H Pulse Oximetry 95 Oxygen Delivery Method Room Air BMI result Body Mass Index 31.0 Const General: healthy appearing, comfortable, no acute distress, alert and awake Nutritional Appearance: well nourished Orientation/consciousness: patient oriented x3 HENMT Head: Yes normocephalic and Yes atraumatic Eyes Eyelids: Yes eyelids normal Conjunctivae: conjunctivae normal Sclerae: sclerae normal Corneas: corneas normal Pupils: Equal, round and reactive pupils present EOM: EOMs intact bilaterally Neck Neck: Yes full ROM Resp Effort & Inspection: normal respiratory effort, able to speak in complete sentences and not labored Cardio Rate: regular rate Rhythm: regular rhythm GI Inspection: No distended Palpation (GI): Soft to palpation, not firm, nontender, no guarding and not rigid Back/Spine/Pelvis Other: Patient has minimal tenderness to the lumbar spine and paraspinous region. No step-offs or deformities Skin Other: Patient has an approximately 4 cm 2nd degree burn to the left buttocks. There is no oozing or blistering General skin exam: elasticity normal Neuro General: patient oriented x3 Cranial nerves: Yes Equal, round and reactive pupils present and Yes Bilaterally intact EOM present Cognition (Neuro): normal cognition Extrem Other: Moving all extremities well without any obvious deformities Course Course Course Narrative: RME performed by Jeny Cazares PA-C. Patient is a 78 year old assigned female at presenting to the emergency department with low back / buttock pain. Patient states that she has had multiple falls over the last few days. Patient heated a heating pad up for 4 minutes instead of 30 seconds and applied it to her bottom - burning it, after falling on it twice. Detailed physical exam and review of systems are deferred to the media theorist and author of. Imaging ordered. Patient placed back in the waiting room pending room availability and results. Reevaluation(s) Reevaluation #1: Patient's urinalysis appears to show UTI, we will start her on cephalexin b.i.d. x5 days. This was ordered Time: 00:52 Reevaluation #2: 04/11/2024 0360 ---> Physician observation continues. Patient continues to be followed by CM. Reevaluation #3: Observation care revealed the the patient does not meet medical necessity for hospitalization. Final disposition discussed with the patient who verbalized understanding and agreement. Patient completed observation care at 1130 on 04/11/2024, total time spent in observation care was 1 day, 10 hours, and 54 minutes. Medications Administered Generic Name Dose Route Start Last Admin Trade Name Freq PRN Reason Stop Dose Admin Cephalexin HCl 250 mg 04/10/24 01:00 04/10/24 22:00 Cephalexin 250 Mg Capsule PO 04/14/24 09:01 250 mg BID BOYD Administration Medical Decision Making Medical Decision Making [facility] Narrative: Patient had CT scan of the brain, C-spine, pelvis and lumbar spine ordered in triage. She does not appear to have any injuries to her extremities. She only complains of lower back pain and pain in the area of her left buttocks were she burned herself 2 days ago. I have a low suspicion that there will be any significant traumatic injuries on the imaging. I did order a basic medical workup as family thinks the patient is unsafe to be discharged home alone. Plan for basic labs, EKG, urinalysis to evaluate for metabolic cause of weakness and frequent falls. Differential Diagnosis Differential Diagnoses: The differential diagnosis associated with the presentation includes Failure to thrive Frequent falls Unsteady gait Intracranial hemorrhage Cervical fracture Compression fracture Lower back strain Second-degree burn Lab Data [facility] Lab Attestation statement: I reviewed the patient's lab results. No leukocytosis or anemia. Normal platelet count. No significant electrolyte abnormalities 04/09/24 23:36 04/09/24 23:36 Labs: Lab Results 04/09/24 04/10/24 04/10/24 Range/Units 23:36 00:32 01:11 WBC 6.5 (4.8-10.8) X10*3/uL RBC 4.93 D (4.20-5.50) X10*6/uL Hgb 14.6 D (12.0-16.0) g/dl Hct 43.4 D (37.0-47.0) % MCV 88.0 (80.0-98.0) fL MCH 29.6 (27.0-33.0) pg MCHC 33.6 (31.0-35.0) g/dl RDW 15.1 (11.0-16.0) % Plt Count 217 (160-400) X10*3/uL MPV 9.2 L (9.4-12.3) fL Immature Gran % (Auto) 0.3 (0.0-0.4) % Neut % (Auto) 76.2 H (45-73) % Lymph % (Auto) 10.9 L (20-40) % Weston % (Auto) 11.8 H (2-11) % Eos % (Auto) 0.3 (0-4) % Baso % (Auto) 0.5 (0-2) % Lymph # (Auto) 0.7 L (1.2-4.9) X10*3/uL Weston # (Auto) 0.8 (0.1-1.2) X10*3/uL Eos # (Auto) 0.0 (0.0-0.4) X10*3/uL Baso # (Auto) 0.0 (0.0-0.2) X10*3/uL Abs Immat Gran (auto) 0.02 (0.00-0.03) X10*3/uL Absolute Neuts (auto) 5.0 (2.0-8.3) x10*3/uL Absolute Nucleated RBC 0.000 (0.0-0.012) X10*3/uL Nucleated RBC % (auto) 0.0 (0.0-0.2) /100WBC PT 31.7 H D (11.1-13.3) SEC INR 2.6 H (0.9-1.1) Sodium 143 (135-145) mmol/L Potassium 3.6 (3.3-5.1) mmol/L Chloride 110 H (96-108) mmol/L Carbon Dioxide 25 (22-29) mmol/L Anion Gap 12 (12-20) BUN 21 H (9-16) mg/dL Creatinine 0.85 (0.5-1.4) mg/dL Estim Creat Clear Calc 56.1 Estimated GFR > 60 Random Glucose 109 (60-115) mg/dL Calcium 9.1 (8.4-10.2) mg/dL Total Bilirubin 1.2 H (0.0-1.0) mg/dL AST 23 (5-31) U/L ALT 18 (0-31) U/L Alkaline Phosphatase 78 (39-117) U/L Total Protein 6.4 L (6.5-8.0) g/dL Albumin 3.7 (3.5-5.0) g/dL Lipase 15 (8-78) U/L Urine Color Yellow Urine Appearance Cloudy Urine pH 6.0 (5.0-9.0) Ur Specific Portis 1.015 (1.005-1.025) Urine Protein 30 (1+) H (Neg-Trace) mg/dL Urine Glucose (UA) Negative (Negative) mg/dL Urine Ketones Negative (Negative) mg/dL Urine Blood Trace H (Negative) Urine Nitrite Positive H (Negative) Ur Leukocyte Esterase Trace H (Negative) Urine RBC 0-2 (0-2) /HPF Urine WBC 0-5 (0-5) /HPF Ur Squamous Epith Cells 11-20 (0-2) /HPF Urine Bacteria 4+ (None Seen) Hyaline Casts 0-2 (0-2) /LPF COVID-19 (PATRICA) (Negative) COVID-19 Clin Com 04/10/24 Range/Units 08:37 WBC (4.8-10.8) X10*3/uL RBC (4.20-5.50) X10*6/uL Hgb (12.0-16.0) g/dl Hct (37.0-47.0) % MCV (80.0-98.0) fL MCH (27.0-33.0) pg MCHC (31.0-35.0) g/dl RDW (11.0-16.0) % Plt Count (160-400) X10*3/uL MPV (9.4-12.3) fL Immature Gran % (Auto) (0.0-0.4) % Neut % (Auto) (45-73) % Lymph % (Auto) (20-40) % Weston % (Auto) (2-11) % Eos % (Auto) (0-4) % Baso % (Auto) (0-2) % Lymph # (Auto) (1.2-4.9) X10*3/uL Weston # (Auto) (0.1-1.2) X10*3/uL Eos # (Auto) (0.0-0.4) X10*3/uL Baso # (Auto) (0.0-0.2) X10*3/uL Abs Immat Gran (auto) (0.00-0.03) X10*3/uL Absolute Neuts (auto) (2.0-8.3) x10*3/uL Absolute Nucleated RBC (0.0-0.012) X10*3/uL Nucleated RBC % (auto) (0.0-0.2) /100WBC PT (11.1-13.3) SEC INR (0.9-1.1) Sodium (135-145) mmol/L Potassium (3.3-5.1) mmol/L Chloride (96-108) mmol/L Carbon Dioxide (22-29) mmol/L Anion Gap (12-20) BUN (9-16) mg/dL Creatinine (0.5-1.4) mg/dL Estim Creat Clear Calc Estimated GFR Random Glucose (60-115) mg/dL Calcium (8.4-10.2) mg/dL Total Bilirubin (0.0-1.0) mg/dL AST (5-31) U/L ALT (0-31) U/L Alkaline Phosphatase (39-117) U/L Total Protein (6.5-8.0) g/dL Albumin (3.5-5.0) g/dL Lipase (8-78) U/L Urine Color Urine Appearance Urine pH (5.0-9.0) Ur Specific Portis (1.005-1.025) Urine Protein (Neg-Trace) mg/dL Urine Glucose (UA) (Negative) mg/dL Urine Ketones (Negative) mg/dL Urine Blood (Negative) Urine Nitrite (Negative) Ur Leukocyte Esterase (Negative) Urine RBC (0-2) /HPF Urine WBC (0-5) /HPF Ur Squamous Epith Cells (0-2) /HPF Urine Bacteria (None Seen) Hyaline Casts (0-2) /LPF COVID-19 (PATRICA) Negative (Negative) COVID-19 Clin Com See Note Independent Interpretation I performed an independent interpretation of an: EKG (Atrial fibrillation with a rate of 81 beats minute. Nondiagnostic EKG) Radiology Impression Discussion of test interpretation with radiology: I have reviewed the radiologist's reading. Radiologist Impression: CT/CT pelvis wo IV con IMPRESSION: 1. No evidence of an acute pelvic or hip fracture. 2. Degenerative changes in the lumbosacral spine as described above. 3. Incidental note made of colonic diverticulosis without diverticulitis and tiny amount of air in the bladder. Please correlate with catheterization history. Electronically signed by: Alonso Sawant MD 04/09/2024 10:[address]/CT lumbar spine wo IV con IMPRESSION: 1. No evidence of acute intracranial hemorrhage or edematous territorial infarction. Moderate underlying microangiopathy and generalized cerebral volume loss. 2. No evidence of acute fracture or traumatic subluxation of the cervical spine. Moderate to advanced multilevel degenerative spondyloarthropathy of the cervical spine. 3. No evidence of acute fracture or traumatic subluxation of the lumbar spine. Moderate multilevel degenerative spondyloarthropathy of the lumbar spine as described in detail above. Most notably on this limited exam without intrathecal contrast, there appears to be moderate neural foraminal stenoses at L2-L3, L4-L5, and L5-S1. No demonstrated overt spinal canal stenosis. Electronically signed by: Jaziel Walters DO 04/09/2024 10:50 PM EDT RP Discharge Plan Discharge Clinical Impression: Fall, Burn of left buttock, Acute UTI Patient Disposition: Still a Patient Prescriptions: No Action warfarin 2.5 mg tablet 2.5 mg PO DAILY diclofenac sodium 1 % gel 4 g topical QID PRN (Reason: pain) atorvastatin 10 mg tablet 1 tab PO DAILY cefuroxime axetil 500 mg tablet 500 mg PO Q12H Qty: 14 0RF Referrals: [facility] [Outside] Print Language: Omani
[2024-04-09 20:52] VITALS: BP 137/94; PULSE 99; RESP 16; TEMP 36.9; O2SAT 97; BMI 31.0
[2024-04-09 22:27] VITALS: BP 133/86; PULSE 82; RESP 20; O2SAT 97
--- NOTE | 2024-04-09 22:43 | PC.NURSE ---
Had patient turn to examine L buttock burn, about the size of a half dollar, nonadherent gauze applied.
--- NOTE | 2024-04-09 22:53 | ECG_ITS ---
Test Reason : PAIN/FALL Blood Pressure : / mmHG Vent. Rate : 081 BPM Atrial Rate : 000 BPM P-R Int : 000 ms QRS Dur : 084 ms QT Int : 404 ms P-R-T Axes : 000 006 -09 degrees QTc Int : 469 ms Atrial fibrillation Abnormal ECG When compared with ECG of 20-MAR-2021 17:02, No significant change was found Referred By: Ron Pacheco Electronically Signed By:NIKHIL PEÑA
--- NOTE | 2024-04-09 23:16 | PC.NURSE ---
Care assumed of pt at this time. Pt up to bathroom with EDTA.
[2024-04-09 23:38] VITALS: BP 133/93; PULSE 83; RESP 13; TEMP 36.7; O2SAT 98
[2024-04-09 23:41] LABS: MANUAL DIFF FLAG NO
[2024-04-09 23:45] LABS: Basophils Percent Auto 0.5 % (0-2); Eosinophils Percent Auto 0.3 % (0-4); Hematocrit 43.4 % (37.0-47.0); Hemoglobin 14.6 g/dl (12.0-16.0); Imm Gran Abs Auto 0.02 X10*3/uL (0.00-0.03); Imm Gran Pct Auto 0.3 % (0.0-0.4); Lymphocytes Absolute Auto 0.7 X10*3/uL (1.2-4.9); Lymphocytes Percent Auto 10.9 % (20-40); Mean Corpuscular HGB Conc 33.6 g/dl (31.0-35.0); Mean Corpuscular Hemoglobin 29.6 pg (27.0-33.0); Mean Platelet Volume 9.2 fL (9.4-12.3); Monocytes Absolute Auto 0.8 X10*3/uL (0.1-1.2); Monocytes Percent Auto 11.8 % (2-11); Neutrophils Percent Auto 76.2 % (45-73); Platelet Count 217 X10*3/uL (160-400); Red Blood Count 4.93 X10*6/uL (4.20-5.50); Red Cell Distribution Width 15.1 % (11.0-16.0); White Blood Count 6.5 X10*3/uL (4.8-10.8)
[2024-04-09 23:59] LABS: Alanine Aminotransferase 18 U/L (0-31); Albumin Level 3.7 g/dL (3.5-5.0); Alkaline Phosphatase 78 U/L (39-117); Anion Gap 12 (12-20); Aspartate Amino Transferase 23 U/L (5-31); Bilirubin Total 1.2 mg/dL (0.0-1.0); Blood Urea Nitrogen 21 mg/dL (9-16); Calcium 9.1 mg/dL (8.4-10.2); Carbon Dioxide 25 mmol/L (22-29); Chloride 110 mmol/L (96-108); Creatinine Clr Calc Pharmacy 56.1; Estimated Glomerular Filt Rate > 60; Glucose Random 109 mg/dL (60-115); Lipase 15 U/L (8-78); Potassium 3.6 mmol/L (3.3-5.1); Sodium 143 mmol/L (135-145); Total Protein 6.4 g/dL (6.5-8.0)
[2024-04-10] VITALS (9 sets, daily range): BP systolic 119–170; BP diastolic 65–110; PULSE 68–88; RESP 14–30; TEMP 36.1–37.2; O2SAT 95–99
[2024-04-10 00:39] LABS: Appearance Urine Cloudy; Color Urine Yellow; Glucose Urine UA Negative (Negative); Leukocyte Esterase Urine Trace (Negative); Nitrite Urine Positive (Negative); Specific Gravity - Urine 1.015 (1.005-1.025); UMIC TRIGGER UACC YES; Urine Blood Trace (Negative); Urine Ketones Negative (Negative); Urine Protein 30 (1+) mg/dL (Neg-Trace)
[2024-04-10 00:44] LABS: Bacteria Urine 4+ (None Seen); Hyaline Casts Urine 0-2 /LPF (0-2); RBC Urine 0-2 /HPF (0-2); UACC Culture Trigger YES; WBC Urine 0-5 /HPF (0-5)
[2024-04-10] MEDS: cephALEXin 250 MG CAPSULE PO ×3 (01:13→22:00)
[2024-04-10 01:21] LABS: INTERNATIONAL NORM RATIO 2.6 (0.9-1.1); Prothrombin Time 31.7 SEC (11.1-13.3)
[2024-04-10 08:55] LABS: IDNOW Serial# 152EDE1D
[2024-04-10 08:56] LABS: COVID-19 Test Negative (Negative)
--- NOTE | 2024-04-10 10:54 | MHC.CM.ED ---
Addendum entered by Daylin Vazquez 04/10/24 12:05: [facility] is able to offer a bed and is in the process of obtaining insurance auth. Original Note: Received case management consult overnight. Patient came to the ER due to a fall. Work up essentially negative. Physical therapy eval completed. Short term rehab is recommended. Met with patient in regards to discharge planning. Patient lives alone, ambulates with a walker/cane and had no services prior to coming to ER. PCP verified as Dina Bright. Patient has a HCP and is trying to obtain a copy. Patient has been to [facility] and requested referral there. Referral made via [place]. List of facilities contracted with patient's insurance also provided just in case [facility] is unable to offer a bed. Continue to monitor for d/c needs.
--- NOTE | 2024-04-10 22:22 | MHC.EDTECH ---
at this time this tech attempted to do vital signs but the pt was asleep, no apparent distress noted and equal and unlabored chest rise present
[2024-04-11 02:36] VITALS: BP 155/94; PULSE 85; RESP 20; TEMP 37.1; O2SAT 95
[2024-04-11 05:12] VITALS: BP 141/85; PULSE 86; RESP 20; TEMP 36.9; O2SAT 95
--- NOTE | 2024-04-11 07:15 | PC.NURSE ---
pt sitting upright eating breakfast at this time. pt has no complaints aside from slight discomfort in her bottom s/p previous fall. pt turned/repositioned to comfort. no sob/wob noted. respirations even/unlabored. plan of care ongoing. call whitaker placed within reach.
--- NOTE | 2024-04-11 08:30 | PC.NURSE ---
pt utilized bedside commode to have BM. pt assisted back into bed/repositioned to comfort. resting in no apparent distress.
[2024-04-11] MEDS: cephALEXin 250 MG CAPSULE PO (08:41)
--- NOTE | 2024-04-11 08:42 | PC.NURSE ---
abx administered per provider order. per CM, pt will be transported to [facility] 1130 via BLS. pt notified/aware of plan of care. pt continues to rest comfortably in bed in no apparent distress. no sob/wob noted. respirations even/unlabored. plan of care ongoing. call whitaker placed within reach.
--- NOTE | 2024-04-11 08:58 | MHC.CM.ED ---
Patient remains in ER. Insurance auth has been obtained by [facility]. Patient can leave at 1130am. Zamzam SHIN booked. Med [facility] with chart. Patient, Lori ERWIN and Jeny JENKINS aware. Continue to monitor for d/c needs.
--- NOTE | 2024-04-11 09:13 | PHA.MEDREC ---
Pharmacy Consult ? Medication Reconciliation Pharmacy has completed the medication reconciliation. Spoke with patient to confirm medications. Patient could not name doses but confirmed medications from pharmacy claims. Patient has not taken home medications since Wednesday04/09/24, and last took warfarin Wednesday04/08/24. Patient states she takes warfarin 2.5mg tablets and her dose changes based on INR; her current dosing is Mon and Fri she takes 3 tablets (7.5mg) and the remainder of the week she takes 2 tabs (5mg) daily. I am messaging the provider to make them aware she is a pt on warfarin.
[2024-04-11 10:00] LABS: INTERNATIONAL NORM RATIO 1.6 (0.9-1.1); Prothrombin Time 19.7 SEC (11.1-13.3)
[2024-04-11] MEDS: Warfarin Sodium 5 MG TABLET 7.5 MG PO (11:11)
--- NOTE | 2024-04-11 11:32 | PC.NURSE ---
PT ASSISTED WITH DONNING HER CLOTHES FOR TRANSPORT TO [facility], SHE WAS NOTED TO HAVE AN APPROX QUARTER SIZED BURN ON HER BUTTOCKS, DRESSING WAS PLACED. INCONTINENT PAD PROVIDED FOR TRANSFER,SHE WAS MEDICATED CHARTED TO ADDRESS HER SUB THERAPEUTIC RANGE INR, AWAITING EMS
== END 2024-04-11 11:40 ==
PROVIDERS: Physician Assistant; Physician Assistant Medical; Emergency Provider Emergency Medicine; PCP Internal Medicine
DX: S09.90XA Unspecified injury of head, initial encounter (principal); N39.0 Urinary tract infection, site not specified; T21.15XA Burn of first degree of buttock, initial encounter; R42 Dizziness and giddiness; I48.91 Unspecified atrial fibrillation; M54.50 Low back pain, unspecified; R26.2 Difficulty in walking, not elsewhere classified; M54.2 Cervicalgia; R51.9 Headache, unspecified; R10.2 Pelvic and perineal pain; W18.39XA Other fall on same level, initial encounter; Y93.89 Activity, other specified; Y92.090 Kitchen in other non-institutional residence as the place of occurrence of the external cause; Y99.8 Other external cause status; Z79.01 Long term (current) use of anticoagulants; Z79.899 Other long term (current) drug therapy; Z11.52 Encounter for screening for COVID-19
CPT/HCPCS: 36415; 70450; 72125; 72131; 72192; 80053; 81001; 83690; 85025; 85610; 87086; 87088; 87186; 87635; 93005; 97162; 99285

== ENCOUNTER 2024-04-12 06:14 | Outpatient (REF) | payer MEDICARE, SELFPAY ==
[2024-04-12 06:17] LABS: MANUAL DIFF FLAG NO
[2024-04-12 06:33] LABS: Basophils Percent Auto 0.6 % (0-2); Eosinophils Absolute Auto 0.1 X10*3/uL (0.0-0.4); Eosinophils Percent Auto 2.2 % (0-4); Hematocrit 47.5 % (37.0-47.0); Hemoglobin 15.3 g/dl (12.0-16.0); Imm Gran Abs Auto 0.02 X10*3/uL (0.00-0.03); Imm Gran Pct Auto 0.4 % (0.0-0.4); Lymphocytes Percent Auto 19.5 % (20-40); Mean Corpuscular HGB Conc 32.2 g/dl (31.0-35.0); Mean Corpuscular Hemoglobin 28.7 pg (27.0-33.0); Monocytes Absolute Auto 0.7 X10*3/uL (0.1-1.2); Monocytes Percent Auto 12.9 % (2-11); Neutrophils Absolute Auto 3.2 x10*3/uL (2.0-8.3); Neutrophils Percent Auto 64.4 % (45-73); Platelet Count 239 X10*3/uL (160-400); Red Blood Count 5.34 X10*6/uL (4.20-5.50); Red Cell Distribution Width 15.2 % (11.0-16.0)
[2024-04-12 06:37] LABS: INTERNATIONAL NORM RATIO 1.6 (0.9-1.1); Prothrombin Time 19.4 SEC (11.1-13.3)
[2024-04-12 06:48] LABS: Alanine Aminotransferase 13 U/L (0-31); Albumin Level 3.6 g/dL (3.5-5.0); Alkaline Phosphatase 83 U/L (39-117); Anion Gap 13 (12-20); Aspartate Amino Transferase 17 U/L (5-31); Bilirubin Total 1.2 mg/dL (0.0-1.0); Blood Urea Nitrogen 17 mg/dL (9-16); Calcium 9.2 mg/dL (8.4-10.2); Carbon Dioxide 25 mmol/L (22-29); Chloride 106 mmol/L (96-108); Estimated Glomerular Filt Rate > 60; Glucose Random 84 mg/dL (60-115); Sodium 140 mmol/L (135-145); Total Protein 6.5 g/dL (6.5-8.0)
== END 2024-04-12 06:15 | disposition home or self-care (01) ==
LOC: HO.MMNH1L 06:14
PROVIDERS: Visit Provider Hospitalist
DX: N39.0 Urinary tract infection, site not specified (principal); E78.5 Hyperlipidemia, unspecified
CPT/HCPCS: 36415; 80053; 85025; 85610

== ENCOUNTER 2024-04-14 05:53 | Outpatient (REF) | payer MEDICARE, SELFPAY ==
[2024-04-14 06:20] LABS: INTERNATIONAL NORM RATIO 1.7 (0.9-1.1); Prothrombin Time 20.5 SEC (11.1-13.3)
== END 2024-04-14 05:54 | disposition home or self-care (01) ==
LOC: HO.MMNH1L 05:53
PROVIDERS: Visit Provider Hospitalist
DX: I48.91 Unspecified atrial fibrillation (principal)
CPT/HCPCS: 36415; 85610

== ENCOUNTER 2024-04-17 06:45 | Outpatient (REF) | payer MEDICARE, SELFPAY ==
[2024-04-17 07:36] LABS: INTERNATIONAL NORM RATIO 1.5 (0.9-1.1); Prothrombin Time 18.6 SEC (11.1-13.3)
== END 2024-04-17 06:46 | disposition home or self-care (01) ==
LOC: HO.MMNH1L 06:45
PROVIDERS: Visit Provider Hospitalist
DX: R27.8 Other lack of coordination (principal); R29.6 Repeated falls; E46 Unspecified protein-calorie malnutrition
CPT/HCPCS: 36415; 85610

== ENCOUNTER 2024-04-19 06:08 | Outpatient (REF) | payer MEDICARE, SELFPAY ==
[2024-04-19 06:42] LABS: INTERNATIONAL NORM RATIO 1.5 (0.9-1.1); Prothrombin Time 17.9 SEC (11.1-13.3)
== END 2024-04-19 06:09 | disposition home or self-care (01) ==
LOC: HO.MMNH1L 06:08
PROVIDERS: Visit Provider Hospitalist
DX: R27.8 Other lack of coordination (principal); R29.6 Repeated falls; E46 Unspecified protein-calorie malnutrition
CPT/HCPCS: 36415; 85610

== ENCOUNTER 2024-04-20 05:43 | Outpatient (REF) | payer MEDICARE, SELFPAY ==
[2024-04-20 05:45] LABS: MANUAL DIFF FLAG NO
[2024-04-20 06:05] LABS: Basophils Percent Auto 0.5 % (0-2); Eosinophils Absolute Auto 0.2 X10*3/uL (0.0-0.4); Eosinophils Percent Auto 2.9 % (0-4); Hematocrit 40.4 % (37.0-47.0); Hemoglobin 13.2 g/dl (12.0-16.0); Imm Gran Abs Auto 0.03 X10*3/uL (0.00-0.03); Imm Gran Pct Auto 0.5 % (0.0-0.4); Lymphocytes Absolute Auto 0.8 X10*3/uL (1.2-4.9); Lymphocytes Percent Auto 12.3 % (20-40); Mean Corpuscular HGB Conc 32.7 g/dl (31.0-35.0); Mean Corpuscular Hemoglobin 28.8 pg (27.0-33.0); Mean Corpuscular Volume 88.2 fL (80.0-98.0); Mean Platelet Volume 9.5 fL (9.4-12.3); Monocytes Absolute Auto 0.6 X10*3/uL (0.1-1.2); Monocytes Percent Auto 9.6 % (2-11); Neutrophils Absolute Auto 4.7 x10*3/uL (2.0-8.3); Neutrophils Percent Auto 74.2 % (45-73); Platelet Count 311 X10*3/uL (160-400); Red Blood Count 4.58 X10*6/uL (4.20-5.50); White Blood Count 6.3 X10*3/uL (4.8-10.8)
[2024-04-20 06:21] LABS: Anion Gap 12 (12-20); Blood Urea Nitrogen 16 mg/dL (9-16); Calcium 8.9 mg/dL (8.4-10.2); Carbon Dioxide 23 mmol/L (22-29); Chloride 108 mmol/L (96-108); Estimated Glomerular Filt Rate > 60; Glucose Random 94 mg/dL (60-115); Potassium 3.9 mmol/L (3.3-5.1); Sodium 139 mmol/L (135-145)
== END 2024-04-20 05:44 | disposition home or self-care (01) ==
LOC: HO.MMNH1L 05:43
PROVIDERS: Visit Provider Hospitalist
DX: R29.6 Repeated falls (principal); I48.91 Unspecified atrial fibrillation; N39.0 Urinary tract infection, site not specified
CPT/HCPCS: 36415; 80048; 85025

== ENCOUNTER 2024-04-21 06:05 | Outpatient (REF) | payer MEDICARE, SELFPAY ==
[2024-04-21 06:23] LABS: INTERNATIONAL NORM RATIO 1.6 (0.9-1.1); Prothrombin Time 18.2 SEC (10.9-12.4)
== END 2024-04-21 06:06 | disposition home or self-care (01) ==
LOC: HO.MMNH1L 06:05
PROVIDERS: Visit Provider Hospitalist
DX: I48.91 Unspecified atrial fibrillation (principal); R62.7 Adult failure to thrive
CPT/HCPCS: 36415; 85610

== ENCOUNTER 2024-12-27 15:32 | Inpatient (IN) | payer MEDICARE, SELFPAY ==
--- NOTE | ~2024-12-27 | FL_ITS ---
EXAMINATION: FL GUIDANCE ONLY HISTORY: fracture left hip COMPARISON: Correlation is made with a plain film of the pelvis dated 12/27/2024. TECHNIQUE: Fluoroscopy time: 0.5 minutes. Cumulative Dose: 16.8 mGy. DAP: 0.292 mGym2 Images: 5. FINDINGS: Fluoroscopic spot films of the left hip demonstrate internal fixation of the previously seen intertrochanteric fracture with a compression screw and side plate attachment. FL/FL guidance in OR IMPRESSION: Fluoroscopy during procedure. Please see procedure report for additional information. Electronically signed by: Cortez Amato MD 01/01/2025 07:09 AM EDT
--- NOTE | ~2024-12-27 | XR_ITS ---
EXAMINATION: XR KNEE 1-2 VIEWS LEFT HISTORY: Assess hardware COMPARISON: Correlation is made with plain films of the left femur and tibia and fibula performed 12/27/2024. FINDINGS: Four portable views of the left knee performed at 10:30 AM are submitted. The patient is status post total knee arthroplasty. The proximal portion of the femoral stem component is excluded. There is no fracture or dislocation. Evaluation for a joint effusion is limited by lack of a true lateral view. The soft tissues are unremarkable. XR/XR knee LT 2V IMPRESSION: Status post left total knee arthroplasty. Electronically signed by: Cortez Amato MD 12/28/2024 10:57 AM EDT
--- NOTE | ~2024-12-27 | CT_ITS ---
CLINICAL HISTORY: fall, pain CT head without contrast Comparison: 04/09/24 Findings: No acute hemorrhage. Basal ganglia calcifications. No extra-axial fluid collection. No hydrocephalus, mass-effect or herniation. Santos-white differentiation is maintained. There is patchy hypoattenuation of the periventricular and deep white matter, which is most likely the sequela of severe chronic small vessel ischemic disease and is similar to the prior study. No acute orbital pathology. Occipital scalp hematoma measuring up to 7 mm in thickness, greatest to the left of midline. No fracture. The visualized paranasal sinuses are predominantly clear. The mastoid air cells are clear. Impression: No acute intracranial findings. This document has been electronically signed by: Sheila Beatty MD on 12/27/2024 18:17:31
--- NOTE | ~2024-12-27 | CT_ITS ---
CLINICAL HISTORY: fall, pain CT cervical spine without contrast Comparison: 04/09/24 Findings: Mild multilevel anterolisthesis and retrolisthesis, degenerative. No fracture. Osteophytosis versus heterotopic ossification of the spinous process of T1, unchanged. No severe central spinal canal stenosis. No epidural hematoma. Normal thickness of the prevertebral soft tissues. The lung apices are clear. Impression: No acute findings. This document has been electronically signed by: Sheila Beatty MD on 12/27/2024 19:57:36
--- NOTE | ~2024-12-27 | XR_ITS ---
CLINICAL HISTORY: pain, injury Radiograph of the pelvis, single view Comparison: CR - XR FEMUR LT 2V - 12/27/24 16:[address]/TX/SR - CT PELVIS WO IV CON - 04/09/24 21:00 EDT CR/TX/SR - XR HIP LT W PEL1V - 11/28/23 23:15 EDT Findings: There is a fracture of the left proximal femur involving the greater and lesser trochanters and intertrochanteric crest. Femoral neck/shaft angle is decreased, measuring 95 degrees. No dislocation. Acute fracture of the left superior and inferior pubic rami without significant displacement. Mild to moderate degenerative change. Bone mineralization is decreased. Soft tissue swelling. Vascular calcifications. Impression: Fracture of the left proximal femur. Fracture of the left superior and inferior pubic rami. This document has been electronically signed by: Sheila Beatty MD on 12/27/2024 17:30:55
--- NOTE | ~2024-12-27 | XR_ITS ---
CLINICAL HISTORY: pain, injury Radiographs of the left femur, 2 views, 4 images Comparison: CR - XR TIBIA FIBULA LT 2V - 12/27/24 16:59 EDT CR - XR PELVIS 1-2V - 12/27/24 16:[address]/NE/SR - CT PELVIS WO IV CON - 04/09/24 21:00 EDT CR/SR - XR KNEE LT 2V - 11/28/23 23:16 EDT CR/NE/SR - XR HIP LT W PEL1V - 11/28/23 23:15 EDT Findings: There is a fracture of the left proximal femur involving greater and lesser trochanters and intertrochanteric crest with decreased femoral neck/shaft angle. Fracture of the left superior and inferior pubic rami. A long stem intramedullary aimee has been placed within the distal femoral diaphysis secondary to the previously seen left knee arthroplasty periprosthetic fracture. There is also a cerclage wire. Hardware is intact. There is heterotopic ossification. [id number] degenerative change. Bone mineralization is decreased. Soft tissue swelling. Impression: Fracture of the left proximal femur and left superior and inferior pubic rami. Intact left knee arthroplasty with a long stem aimee and cerclage wire at the femoral diaphysis. This document has been electronically signed by: Sheila Beatty MD on 12/27/2024 17:35:24
--- NOTE | ~2024-12-27 | XR_ITS ---
CLINICAL HISTORY: pain, injury Radiographs of the lefttibia/fibula, 2 views Comparison: CR - XR FEMUR LT 2V - 12/27/24 16:57 EDT CR - XR PELVIS 1-2V - 12/27/24 16:56 EDT CR/SR - XR KNEE LT 2V - 11/28/23 23:16 EDT CR/CO/SR - XR HIP LT W PEL1V - 11/28/23 23:15 EDT Findings: No acute fracture or dislocation. Intact total knee arthroplasty. Interval placement of long stem aimee in the distal femur and proximal tibia. No degenerative change. Bone mineralization is decreased. Vascular calcifications. Soft tissue swelling. Impression: No fracture. This document has been electronically signed by: Sheila Beatty MD on 12/27/2024 17:29:30
--- NOTE | ~2024-12-27 | XR_ITS ---
CLINICAL HISTORY: pubic rami fxs Radiograph of the pelvis, single view Comparison: CR - XR PELVIS 1-2V - 12/27/24 16:56 EDT Findings: Interval fixation of the previously seen fracture of the left proximal femur. The hardware is intact. There is anatomic alignment. No dislocation. Nondisplaced fractures of the left superior and inferior pubic rami. [id number] degenerative change. Bone mineralization is decreased. Left hip soft tissue swelling, foci of air and overlying skin vivek. Impression: Interval fixation of the previously seen fracture of the left proximal femur. Intact hardware. Anatomic alignment. Nondisplaced fractures of the left superior and inferior pubic rami. This document has been electronically signed by: Sheila Beatty MD on 12/31/2024 12:54:41
--- NOTE | 2024-12-27 15:42 | ED_ITS ---
HPI - General Adult General Chief complaint: Fall Stated complaint: fall, l knee pain Time Seen by Provider: 12/27/24 15:41 Source: patient and EMS Mode of arrival: EMS Limitations: no limitations History of Present Illness ED Provider: Jeny Cazares PA-C HPI narrative: 79 year old female with a past medical history of A-fib, HTN, and periprosthetic fracture around internal prosthetic knee joint presents to the ED via EMS with a chief complaint of left hip and left knee pain after a fall. Patient reports that she was walking backwards down her stairs with her cane and fell off the last 2 steps. She states that she fell on her left side, denies head strike. Denies headache, chest pain, LOC, SOB, upper extremity pain, or right side pain. 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 MD complaint: Knee pain post fall Onset (ago): hour(s) Location: lower extremity (left knee) Quality: constant Pain Consistency: constant Relieving factors: none Exacerbating factors: none Associated symptoms: denies other symptoms Treatments prior to arrival: none Related Data Home Medications ?Medication ?Instructions ?Recorded ?Confirmed acetaminophen 325 mg tablet 650 mg PO Q6H PRN Pain 04/11/24 12/27/24 atorvastatin 20 mg tablet 20 mg PO DAILY 04/11/24 12/27/24 metoprolol succinate 25 mg 25 mg PO DAILY 04/11/24 12/27/24 tablet,extended release 24 hr warfarin 2.5 mg tablet 2.5 mg PO DAILY@1800 04/11/24 12/27/24 Allergies Allergy/AdvReac Type Severity Reaction Status Date / Time No Known Allergies Allergy Verified 12/27/24 15:55 Review of Systems 2 Constitutional: Constitutional: Reports no additional constitutional complaints, Denies chills, Denies fever(s) and Denies night sweats Eyes: Eyes: Reports no additional eye complaints, Denies blurry vision, Denies change in vision, Denies diplopia, Denies eye discharge, Denies loss of vision and Denies eye pain ENT: Denies dizziness Cardiovascular: Cardiovascular: Reports no additional cardiovascular complaints, Denies chest pain, Denies lightheadedness, Denies Loss of Consciousness and Denies dyspnea Respiratory: Respiratory: Reports no additional respiratory complaints and Denies dyspnea Gastrointestinal: Gastrointestinal: Reports no additional gastrointestinal complaints, Denies abdominal pain, Denies melena, Denies hematochezia, Denies change in bowel habits and Denies change in stool character Genitourinary: Genitourinary: Denies hematuria, Denies urinary frequency, Denies dysuria, Denies urinary incontinence, Denies urinary hesitancy and Denies urinary urgency Musculoskeletal: Musculoskeletal: Reports no additional musculoskeletal complaints, Reports as per HPI, Reports arthralgias (left hip and knee), Denies numbness and Denies tingling Neurologic: Denies dizziness, Denies loss of vision, Denies numbness and Denies tingling Psychiatric: Psychiatric: Reports no additional psychiatric complaints Endocrine: Endocrine: Reports no additional endocrine complaints Hematologic/Lymphatic: Hematologic/Lymphatic: Reports no additional hematologic/lymphatic complaints Allergic/Immunologic: Allergic/Immunologic: Reports no additional allergic/immunologic complaints PMFSH Past Medical History Attestation statement: The following information was validated with the patient. Source: old records reviewed and nursing notes reviewed Medical History (Updated 12/27/24 @ 20:24 by RAJI Harris) Afib HLD (hyperlipidemia) Chronic anticoagulation Hypertension A-fib Surgical History (Updated 12/27/24 @ 20:24 by RAJI Harris) Knee joint replacement status H/O hernia repair Social History Social History Alcohol intake: never Patient Tobacco Use Status: Never used Tobacco Smoked in Last 30 Days: No Use of substances other than those prescribed or required for medical reasons: No Advance Directives: No Advance Directives Information Provided: Yes Nutrition Risks: No Nutritional Risk Patient : No Physical Exam ED Vital Signs: Vital Signs - 24 hr 12/27/24 15:45 12/27/24 15:56 12/27/24 15:56 Temperature 98.6 F Pulse Rate 97 Respiratory Rate 18 14 14 Blood Pressure 182/103 H Pulse Oximetry 97 Oxygen Delivery Method Room Air 12/27/24 17:27 Temperature Pulse Rate 101 H Respiratory Rate Blood Pressure 158/88 H Pulse Oximetry Oxygen Delivery Method BMI result Body Mass Index 31.0 Const General: cooperative, no acute distress, alert and awake Nutritional Appearance: well nourished Orientation/consciousness: patient oriented x3 HENMT Head: Yes normal to inspection and Yes atraumatic Ears: hearing grossly normal bilaterally and external ears normal General nose exam: Normal external nose present, no nasal discharge noted and no epistaxis Face and sinus: Yes normal facial exam, No abrasion and No laceration Mouth: Normal oral and palatal mucosa present, no drooling and no muffled voice Eyes General: appearance normal, both eyes and all related structures Periorbital: periorbital findings normal Eyelids: Yes eyelids normal Conjunctivae: conjunctivae normal Pupils: Equal, round and reactive pupils present EOM: EOMs intact bilaterally Neck Neck: Yes normal visual inspection, Yes full ROM and Yes no lymphadenopathy Resp Effort & Inspection: normal respiratory effort and able to speak in complete sentences Back/Spine/Pelvis Other: left hip pain with palpation Skin General skin exam: no rashes or lesions noted Neuro General: patient oriented x3 and moves all extremities Cranial nerves: Yes Equal, round and reactive pupils present Cognition (Neuro): normal cognition Extrem Other: bruising noted to the left knee left leg shortened and externally rotated General: Yes full ROM and Yes capillary refill normal Psych Appearance: grossly normal Mental Status: mental status grossly normal Affect: normal affect Attitude: cooperative Thought process: Normal thought process present Thought content: Normal thought content present Insight: Good insight present (Psych) Medications Administered Generic Name Dose Route Start Last Admin Trade Name Freq PRN Reason Stop Dose Admin Acetaminophen 650 mg 12/27/24 18:58 12/27/24 20:50 Acetaminophen 325 Mg Tablet PO 650 mg Q6H PRN Administration Pain, Mild 1-3,fever,headache Atorvastatin Calcium 20 mg 12/28/24 09:00 12/28/24 07:50 Atorvastatin Calcium 20 Mg Tablet PO 20 mg DAILY BOYD Administration Ceftriaxone Sodium 1 gm 12/27/24 21:00 12/27/24 21:25 Ceftriaxone Sodium 1 Gm Vial IVPUSH 1 gm Q24H BOYD Administration Morphine Sulfate 2 mg 12/27/24 20:17 12/27/24 21:25 Morphine Sulfate 2 Mg/Ml Cartridge IVPUSH 2 mg Q4H PRN Administration Pain, Severe (Pain Scale 7-10) Protocol Pantoprazole Sodium 40 mg 12/28/24 06:30 12/28/24 06:07 Pantoprazole Sodium 40 Mg/10 Ml Vial IVPUSH 40 mg DAILY@0630 BOYD Administration Senna 17.2 mg 12/27/24 21:00 12/27/24 21:25 Sennosides 8.6 Mg Tablet PO 17.2 mg BEDTIME BOYD Administration Sodium Chloride 3 ml 12/28/24 00:00 12/28/24 07:50 0.9 % Sodium Chloride Flush 3 Ml Syringe IVFLUSH 3 ml QSHIFT BOYD Administration Discontinued Medications Generic Name Dose Route Start Last Admin Trade Name Keith PRN Reason Stop Dose Admin Morphine Sulfate 4 mg 12/27/24 16:16 12/27/24 17:34 Morphine Sulfate 4 Mg/Ml Cartridge IVPUSH 12/27/24 16:17 4 mg ONCE ONE Administration Protocol Ondansetron HCl 4 mg 12/27/24 16:16 12/27/24 17:34 Ondansetron Hcl 4 Mg/2 Ml Vial IVPUSH 12/27/24 16:17 4 mg ONCE ONE Administration Medical Decision Making Medical Decision Making MDM Narrative: Patient is a 79 year old assigned female at with a history of atrial fib, HTN, and previous left knee replacement presenting to the emergency department today with left knee and hip pain. Patient's physical exam was as noted in the physical exam portion of this note. Patient's blood work showed an elevated WBC count secondary to a stress reaction. Patient's INR was subtherapeutic. Patient's EKG showed known atrial fib. Patient's left pelvis x-ray showed a fracture of the left proximal femur, left superior rami, and left inferior pubic rami. I spoke with the orthopedic team who recommended admission to the medical team. I spoke with the hospitalist team who agreed to admission. I explained my physical exam findings as well as all test results to the patient. I answered all questions asked by the patient. Patient received IV Morphine which, upon re- evaluation, she stated it helped her symptoms significantly. Patient verbalized agreement and understanding with this treatment plan and admission. I spoke with the patient's daughter who agreed with treatment plan and admission. Differential Diagnosis Differential Diagnoses: The differential diagnosis associated with the presentation includes Hip fracture Fall Admission/Observation Consideration of admission/observation: Escalation of care including admission/observation considered Patient admitted as noted in the MDM Rationale portion of this note. Consult Healthcare Provider Management of the patient was discussed with: Hospitalist (Spoke with the hospitalist team as noted in the MDM Rationale portion of this note.) and Cdl Truck Driver (Spoke with the orthopedic team as noted in the MDM Rationale portion of this note.) Lab Data [facility] Lab Attestation statement: I reviewed the patient's lab results. My interpretation of these results are in the MDM Rationale portion of this note. 12/28/24 04:21 12/28/24 04:21 Labs: Lab Results 12/27/24 Range/Units 17:32 WBC 14.6 H (4.8-10.8) X10*3/uL RBC 5.13 (4.20-5.50) X10*6/uL Hgb 16.2 H D (12.0-16.0) g/dl Hct 46.6 (37.0-47.0) % MCV 90.8 (80.0-98.0) fL MCH 31.6 (27.0-33.0) pg MCHC 34.8 (31.0-35.0) g/dl RDW 13.2 (11.0-16.0) % Plt Count 215 D (160-400) X10*3/uL MPV 9.5 (9.4-12.3) fL Immature Gran % (Auto) 0.9 H (0.0-0.4) % Neut % (Auto) 91.5 H (45-73) % Lymph % (Auto) 3.2 L (20-40) % [place] % (Auto) 4.2 (2-11) % Eos % (Auto) 0.1 (0-4) % Baso % (Auto) 0.1 (0-2) % Lymph # (Auto) 0.5 L (1.2-4.9) X10*3/uL [place] # (Auto) 0.6 (0.1-1.2) X10*3/uL Eos # (Auto) 0.0 (0.0-0.4) X10*3/uL Baso # (Auto) 0.0 (0.0-0.2) X10*3/uL Abs Immat Gran (auto) 0.13 H (0.00-0.03) X10*3/uL Absolute Neuts (auto) 13.3 H (2.0-8.3) x10*3/uL Absolute Nucleated RBC 0.000 (0.0-0.012) X10*3/uL Nucleated RBC % (auto) 0.0 (0.0-0.2) /100WBC Smear Tech's Comments VERIFIED PT 16.6 H (10.9-12.4) SEC INR 1.4 H (0.9-1.1) Sodium 143 (135-145) mmol/L Potassium 3.5 (3.3-5.1) mmol/L Chloride 109 H (96-108) mmol/L Carbon Dioxide 22 (22-29) mmol/L Anion Gap 16 (12-20) BUN 19 H (9-16) mg/dL Creatinine 0.79 (0.5-1.4) mg/dL Estim Creat Clear Calc 59.5 Estimated GFR > 60 Random Glucose 123 H (60-115) mg/dL Calcium 8.9 (8.4-10.2) mg/dL Magnesium 1.5 L (1.6-2.6) mg/dL Total Bilirubin 1.6 H (0.0-1.0) mg/dL AST 32 H (5-31) U/L ALT 21 (0-31) U/L Alkaline Phosphatase 73 (39-117) U/L Total Protein 6.5 (6.5-8.0) g/dL Albumin 3.9 (3.5-5.0) g/dL Independent Interpretation I performed an independent interpretation of an: EKG, Plain X-Ray and CT Scan Interpretation: My interpretation is in agreement with the radiologist's impression of these imaging studies. L CLINICAL HISTORY: pain, injury Radiographs of the lefttibia/fibula, 2 views Comparison: CR - XR FEMUR LT 2V - 12/27/24 16:57 EDT CR - XR PELVIS 1-2V - 12/27/24 16:56 EDT CR/SR - XR KNEE LT 2V - 11/28/23 23:16 EDT CR/HI/SR - XR HIP LT W PEL1V - 11/28/23 23:15 EDT Findings: No acute fracture or dislocation. Intact total knee arthroplasty. Interval placement of long stem aimee in the distal femur and proximal tibia. No degenerative change. Bone mineralization is decreased. Vascular calcifications. Soft tissue swelling. Impression: No fracture. This document has been electronically signed by: Sheila Beatty MD on 12/27/2024 17:29:30 Dictated By: Sheila Leach MD Signed By: Electronically signed by Sheila Leach MD 12/27/24 1730 Report Number: [id number]: Total DLP = 1004.56 mGy-cm CLINICAL HISTORY: fall, pain CT head without contrast Comparison: 04/09/24 Findings: No acute hemorrhage. Basal ganglia calcifications. No extra-axial fluid collection. No hydrocephalus, mass-effect or herniation. Santos-white differentiation is maintained. There is patchy hypoattenuation of the periventricular and deep white matter, which is most likely the sequela of severe chronic small vessel ischemic disease and is similar to the prior study. No acute orbital pathology. Occipital scalp hematoma measuring up to 7 mm in thickness, greatest to the left of midline. No fracture. The visualized paranasal sinuses are predominantly clear. The mastoid air cells are clear. Impression: No acute intracranial findings. This document has been electronically signed by: Sheila Beatty MD on 12/27/2024 18:17:31 Dictated By: Sheila Leach MD Signed By: Electronically signed by Sheila Leach MD 12/27/24 1818 Report Number: [id number]: Total DLP = 318.04 mGy-cm CLINICAL HISTORY: fall, pain CT cervical spine without contrast Comparison: 04/09/24 Findings: Mild multilevel anterolisthesis and retrolisthesis, degenerative. No fracture. Osteophytosis versus heterotopic ossification of the spinous process of T1, unchanged. No severe central spinal canal stenosis. No epidural hematoma. Normal thickness of the prevertebral soft tissues. The lung apices are clear. Impression: No acute findings. This document has been electronically signed by: Sheila Beatty MD on 12/27/2024 19:57:36 Dictated By: Sheila Leach MD Signed By: Electronically signed by Sheila Leach MD 12/27/241957 Vent. Rate: 98 BPM Atrial Rate: * BPM P-R Int: * ms QRS Dur: 80 ms QT Int: 374 ms P-R-T Axes: * -23 -9 degrees QTcB Int: 477 ms Atrial fibrillation Nonspecific ST and T wave abnormality When compared with ECG of 09-Apr-2024 23:21, No significant change was found DD/ 1635 Radiology Impression Discussion of test interpretation with radiology: I have reviewed the radiologist's reading. Independent Historian Clinical information obtained from an independent historian. History obtained from or confirmed by: EMS (EMS provided additional history and confirmed the history provided by the patient. ) Critical Care Time Critical Care Time Critical Care Time: Yes Total Critical Care Time: 46 Attestation: I spent 46 minutes of Critical Care Time with this patient. This does not include time spent on separately reported billable procedures. Discharge Plan Discharge Clinical Impression: Femur fracture, Pelvic fracture Patient Disposition: Admitted As Inpatient
[2024-12-27 15:45] VITALS: BP 144/82; BP 182/103; PULSE 95; PULSE 97; RESP 18; TEMP 37; O2SAT 95; O2SAT 97; BMI 31.0
[2024-12-27 15:56] VITALS: RESP 14
--- NOTE | 2024-12-27 16:02 | ECG_ITS ---
Test Reason : FALL Blood Pressure : */* mmHG Vent. Rate : 98 BPM Atrial Rate : * BPM P-R Int : * ms QRS Dur : 80 ms QT Int : 374 ms P-R-T Axes : * -23 -9 degrees QTcB Int : 477 ms Atrial fibrillation Nonspecific ST and T wave abnormality Abnormal ECG When compared with ECG of 09-Apr-2024 23:21, No significant change was found Referred By: Jeny Cazares Electronically Signed By: SHERRY WONG MD
[2024-12-27 17:27] VITALS: BP 158/88; PULSE 101
[2024-12-27] MEDS: ondansetron HCL 4 MG/2 ML VIAL IVPUSH (17:34)
[2024-12-27] MEDS: Morphine Sulfate 4 MG/ML CARTRIDGE IVPUSH (17:34)
[2024-12-27 17:51] LABS: Basophils Percent Auto 0.1 % (0-2); Eosinophils Percent Auto 0.1 % (0-4); Hematocrit 46.6 % (37.0-47.0); Hemoglobin 16.2 g/dl (12.0-16.0); Imm Gran Abs Auto 0.13 X10*3/uL (0.00-0.03); Imm Gran Pct Auto 0.9 % (0.0-0.4); Lymphocytes Absolute Auto 0.5 X10*3/uL (1.2-4.9); Lymphocytes Percent Auto 3.2 % (20-40); MANUAL DIFF FLAG SCAN; Mean Corpuscular HGB Conc 34.8 g/dl (31.0-35.0); Mean Corpuscular Hemoglobin 31.6 pg (27.0-33.0); Mean Corpuscular Volume 90.8 fL (80.0-98.0); Mean Platelet Volume 9.5 fL (9.4-12.3); Monocytes Absolute Auto 0.6 X10*3/uL (0.1-1.2); Monocytes Percent Auto 4.2 % (2-11); Neutrophils Absolute Auto 13.3 x10*3/uL (2.0-8.3); Neutrophils Percent Auto 91.5 % (45-73); Platelet Count 215 X10*3/uL (160-400); Red Blood Count 5.13 X10*6/uL (4.20-5.50); Red Cell Distribution Width 13.2 % (11.0-16.0); SCAN SMEAR FLAG 1; White Blood Count 14.6 X10*3/uL (4.8-10.8)
[2024-12-27 17:57] LABS: Alanine Aminotransferase 21 U/L (0-31); Albumin Level 3.9 g/dL (3.5-5.0); Alkaline Phosphatase 73 U/L (39-117); Anion Gap 16 (12-20); Aspartate Amino Transferase 32 U/L (5-31); Bilirubin Total 1.6 mg/dL (0.0-1.0); Blood Urea Nitrogen 19 mg/dL (9-16); Calcium 8.9 mg/dL (8.4-10.2); Carbon Dioxide 22 mmol/L (22-29); Chloride 109 mmol/L (96-108); Creatinine Clr Calc Pharmacy 59.5; Estimated Glomerular Filt Rate > 60; Glucose Random 123 mg/dL (60-115); Magnesium 1.5 mg/dL (1.6-2.6); Potassium 3.5 mmol/L (3.3-5.1); Sodium 143 mmol/L (135-145); Total Protein 6.5 g/dL (6.5-8.0)
[2024-12-27 18:01] LABS: INTERNATIONAL NORM RATIO 1.4 (0.9-1.1); Prothrombin Time 16.6 SEC (10.9-12.4)
[2024-12-27 18:21] LABS: SLIDE REVIEW VERIFIED
--- NOTE | 2024-12-27 19:00 | PM.IMHP ---
History of Present Illness Date of Service: 12/27/24 Attending physician on admission: Micaela Suarez Chief Complaint: s/p fall Patient is a 79-year-old female currently living alone with past medical history bilateral knee replacements, femur repair, hyperlipidemia, UTI atrial fibrillation on Coumadin presents to the emergency room via ambulance status post unwitnessed fall. Patient states she was going downstairs to obtain the mail and fell backwards and then rolled down the steps and landed at the bottom. Patient denies any loss of consciousness or strike to the head. Patient denies any head or neck pain but is having left lower extremity pain. Patient received medication for pain and is currently somewhat groggy and patient is unable to recall specifics regarding her medical history. Patient diagnosed with left proximal femur and left superior and inferior pubic rami fracture. HEAD CT and CT of the cervical spine negative for acute findings and the collar has since been removed. Otoole is being placed due to significant urinary retention and the need for surgery in the next 24 hours. Incidentally UA is positive for possible UTI and patient was started on ceftriaxone. Coumadin will be held and INR coming in was 1.4. Patient will be made NPO at midnight for possible surgery in the morning with Orthopedics. Review of Systems Review of Systems: Patient currently denies any chest pain, shortness of breath at rest, abdominal pain, constipation or diarrhea. Patient has not had any history of stroke or seizure. Patient currently denies any headache or visual changes. Yes all other systems are reviewed and are negative [facility] Medical History (Updated 12/27/24 @ 20:24 by RAJI Harris) Afib HLD (hyperlipidemia) Chronic anticoagulation Hypertension A-fib Cognitive capacity: Alert and orientated x3, somewhat groggy from pain medication Functional capacity: independent ambulation Patient : No Pertinent family history: Patient can only state that mother and father lived until their 80s and 90s and her mother had medical complications but she can not recall what they were. Surgical History (Updated 12/27/24 @ 20:24 by RAJI Harris) Knee joint replacement status H/O hernia repair Social History Alcohol intake: never Patient Tobacco Use Status: Never used Tobacco Ebola Risk: Travel/Contact With Anyone From Affected Area/s: No Has Patient Experienced Ebola Symptoms: No Meds Allergies Allergy/AdvReac Type Severity Reaction Status Date / Time No Known Allergies Allergy Verified 12/27/24 15:55 Home Medications ?Medication ?Instructions ?Recorded ?Confirmed ?Last Taken ?Type warfarin 2.5 mg tablet 5 mg PO SUTUWETHSA@1800 03/21/21 04/11/24 04/08/24 History acetaminophen 325 mg tablet 650 mg PO Q6H PRN Pain 04/11/24 04/11/24 04/09/24 History atorvastatin 20 mg tablet 20 mg PO DAILY 04/11/24 04/11/24 04/09/24 History metoprolol succinate 25 mg 25 mg PO DAILY 04/11/24 04/11/24 04/09/24 History tablet,extended release 24 hr warfarin 2.5 mg tablet 7.5 mg PO MOFR@1800 04/11/24 04/11/24 04/07/24 History Physical Exam Vital Signs and Narrative: Vital Signs: Last Vital Signs Temp 98.6 F 12/27/24 15:45 Pulse 101 H 12/27/24 17:27 Resp 14 12/27/24 15:56 BP 158/88 H 12/27/24 17:27 Pulse Ox 97 12/27/24 15:45 O2 Del Method Room Air 12/27/24 15:45 BMI result Body Mass Index 31.0 Alert and orientated X3, somewhat groggy from pain medication unable to answer all questions regarding past medical history. Neuro: CN II-X11 intact, no deficits, visual acuity intact EYES: PERRLA, EOM intact, conjunctiva pink ENT: hearing intact, no issues with swallowing, uvula midline, lips dry, nares patent no epistaxis Cardiac: S1 S2 irregular rate 98, no murmur, no JVD, mild edema in L Lower ext Pulmonary: lungs clear to auscultation B Abdominal: BS active in all 4 quadrants, no guarding, tenderness, rebounding MSK: strength 4/5 upper and R lower extremities, unable to assess strength in left lower extremity. Left lower extremity shorter than right. : no CVA tenderness no bladder distension Extremities: Mild edema in L lower extremities, PT and DP pulses palpable +2 Psych: mood mildly anxious, judgement and insight fair Skin: Intact Results Labs 12/27/24 17:32 12/27/24 17:32 Labs: Laboratory Results - last 24 hr 12/27/24 17:32 MCV 90.8 MCH 31.6 MCHC 34.8 RDW 13.2 Plt Count 215 D MPV 9.5 Immature Gran % (Auto) 0.9 H Neut % (Auto) 91.5 H Lymph % (Auto) 3.2 L [place] % (Auto) 4.2 Eos % (Auto) 0.1 Baso % (Auto) 0.1 Lymph # (Auto) 0.5 L [place] # (Auto) 0.6 Eos # (Auto) 0.0 Baso # (Auto) 0.0 Abs Immat Gran (auto) 0.13 H Absolute Neuts (auto) 13.3 H Absolute Nucleated RBC 0.000 Nucleated RBC % (auto) 0.0 Smear Tech's Comments VERIFIED PT 16.6 H INR 1.4 H Anion Gap 16 Estim Creat Clear Calc 59.5 Estimated GFR > 60 Random Glucose 123 H Calcium 8.9 Magnesium 1.5 L Total Bilirubin 1.6 H AST 32 H ALT 21 Alkaline Phosphatase 73 Total Protein 6.5 Albumin 3.9 ECG Attestation: I personally reviewed and interpreted this ECG as follows: (AFib rate 98) Prior ECG tracings: available for review Imaging Radiologist's Impressions: Cervical Spine Findings: Mild multilevel anterolisthesis and retrolisthesis, degenerative. No fracture. Osteophytosis versus heterotopic ossification of the spinous process of T1, unchanged. No severe central spinal canal stenosis. No epidural hematoma. Normal thickness of the prevertebral soft tissues. The lung apices are clear. Impression: No acute findings. Head CT No acute findings Femur and pelvis x-ray mpression: Fracture of the left proximal femur and left superior and inferior pubic rami. Intact left knee arthroplasty with a long stem aimee and cerclage wire at the femoral diaphysis. Assessment and Plan (1) Left displaced femoral neck fracture: Status: Acute (2) Fracture of multiple pubic rami: Status: Acute Plan Patient is a 79-year-old female currently living alone with past medical history bilateral knee replacements, femur repair, hyperlipidemia, UTI atrial fibrillation on Coumadin Left hip fracture/ ramus fracture -per ortho NPO at midnight, plan for surgery in the a.m. -Coumadin held for AFib, INR today 1.4, repeat INR in the a.m. -if INR is subtherapeutic patient will likely need a bridge with heparin postsurgically -preop orders per ortho -pain management with morphine IV -C-collar removed as CTs of the spine was negative UTI -UA positive, urine culture pending -starting ceftriaxone 1 g daily -Otoole was placed due to significant retention AFib -rate currently controlled -Coumadin held due to plan for surgery -INR 1.4 today -no evidence of active bleeding -continue telemetry DVT prophylaxis: Contraindicated due to need for surgery PPI prophylaxis: Protonix Med rec pending Full code status Quality Stroke Does the patient have a stroke diagnosis?: No Reason for No Anti-thrombotic by Day Two: Contraindicated VTE Prior VTE?: No VTE Risk Level:: Medical - moderate - high VTE Device Contraindication: N/A - Device Ordered VTE Drug Contraindication: Treatment Not Indicated
[2024-12-27 20:13] VITALS: BP 116/64; PULSE 94; RESP 16; TEMP 36.6; O2SAT 94
--- NOTE | 2024-12-27 20:33 | PHA.MEDREC ---
Pharmacy Consult ? Medication Reconciliation Pharmacy has completed the medication reconciliation. Spoke to patient at bedside and she named meds. Noted she hasn't taken her warfarin bc she was due for a visit
[2024-12-27] MEDS: Acetaminophen 325 MG TABLET 650 MG PO (20:50)
[2024-12-27] MEDS: Sennosides 8.6 MG TABLET 17.2 MG PO (21:25)
[2024-12-27] MEDS: Morphine Sulfate 2 MG/ML CARTRIDGE IVPUSH (21:25)
[2024-12-27] MEDS: cefTRIAXone sodium 1 GM VIAL IVPUSH (21:25)
[2024-12-28] VITALS (10 sets, daily range): BP systolic 96–155; BP diastolic 69–87; PULSE 66–89; RESP 12–20; TEMP 36.3–37.3; O2SAT 92–100; BMI 29.5
--- NOTE | 2024-12-28 02:54 | PC.NURSE ---
Pt is currently resting comfortably in stretcher with eyes closed, respirations even and unlabored. VSS at this time, penny continues to drain clear urine without issue. lights dimmed and door closed for privacy and to aid in sleep.
[2024-12-28 05:45] LABS: MANUAL DIFF FLAG NO
[2024-12-28 05:48] LABS: INTERNATIONAL NORM RATIO 1.3 (0.9-1.1); Prothrombin Time 15.3 SEC (10.9-12.4)
[2024-12-28 05:49] LABS: Basophils Percent Auto 0.4 % (0-2); Eosinophils Percent Auto 0.1 % (0-4); Hematocrit 41.1 % (37.0-47.0); Hemoglobin 13.9 g/dl (12.0-16.0); Imm Gran Abs Auto 0.03 X10*3/uL (0.00-0.03); Imm Gran Pct Auto 0.4 % (0.0-0.4); Lymphocytes Absolute Auto 0.8 X10*3/uL (1.2-4.9); Lymphocytes Percent Auto 9.3 % (20-40); Mean Corpuscular HGB Conc 33.8 g/dl (31.0-35.0); Mean Corpuscular Hemoglobin 31.3 pg (27.0-33.0); Mean Corpuscular Volume 92.6 fL (80.0-98.0); Mean Platelet Volume 9.8 fL (9.4-12.3); Monocytes Absolute Auto 0.6 X10*3/uL (0.1-1.2); Monocytes Percent Auto 7.1 % (2-11); Neutrophils Absolute Auto 6.7 x10*3/uL (2.0-8.3); Neutrophils Percent Auto 82.7 % (45-73); Platelet Count 185 X10*3/uL (160-400); Red Blood Count 4.44 X10*6/uL (4.20-5.50); Red Cell Distribution Width 13.3 % (11.0-16.0)
[2024-12-28 06:04] LABS: Alanine Aminotransferase 21 U/L (0-31); Albumin Level 3.3 g/dL (3.5-5.0); Alkaline Phosphatase 59 U/L (39-117); Anion Gap 13 (12-20); Aspartate Amino Transferase 28 U/L (5-31); Bilirubin Total 1.3 mg/dL (0.0-1.0); Blood Urea Nitrogen 20 mg/dL (9-16); Calcium 8.6 mg/dL (8.4-10.2); Carbon Dioxide 22 mmol/L (22-29); Chloride 112 mmol/L (96-108); Creatinine Clr Calc Pharmacy 64.4; Estimated Glomerular Filt Rate > 60; Glucose Random 102 mg/dL (60-115); Sodium 143 mmol/L (135-145); Total Protein 5.5 g/dL (6.5-8.0)
[2024-12-28] MEDS: Pantoprazole Sodium 40 MG/10 ML VIAL IVPUSH (06:07)
[2024-12-28] MEDS: Atorvastatin Calcium 20 MG TABLET PO (07:50)
[2024-12-28] MEDS: 0.9 % Sodium Chloride Flush 3 ML SYRINGE IVFLUSH ×2 (07:50→20:49)
[2024-12-28] MEDS: Acetaminophen 325 MG TABLET 650 MG PO (09:47)
--- NOTE | 2024-12-28 10:03 | P.CONOP_ITS ---
History of Present Illness HPI Consult date: 12/28/24 Chief complaint: pelvic hip fx Narrative: Patient is a 79-year-old female admitted to the hospital after a fall Patient reports she was walking backwards down the stairs with her home, when she fell down 2 stairs and immediately began to experience very significant pain in the left lower extremity and an inability to bear weight X-rays taken in the emergency department reveal displaced intertrochanteric fracture of the left hip in addition to nondisplaced superior and inferior pubic rami fractures Of note, the patient is status post distal femur replacement in the left lower extremity done approximately 1 year ago at [facility], no evidence of hardware complication on x-rays Patient denies numbness or tingling in the left lower extremity No other acute complaints or concerns at this time Review of Systems 2 Review of Systems: Yes all other systems are reviewed and are negative [facility] Past Medical History Medical History (Updated 12/27/24 @ 20:24 by RAJI Harris) Afib HLD (hyperlipidemia) Chronic anticoagulation Hypertension A-fib Surgical History Surgical History (Updated 12/27/24 @ 20:24 by RAJI Harris) Knee joint replacement status H/O hernia repair Social History Social History Alcohol intake: never Patient Tobacco Use Status: Never used Tobacco Smoked in Last 30 Days: No Use of substances other than those prescribed or required for medical reasons: No Advance Directives: No Advance Directives Information Provided: Yes Nutrition Risks: No Nutritional Risk Patient : No Travel History Ebola Risk: Travel/Contact With Anyone From Affected Area/s: No Has Patient Experienced Ebola Symptoms: No Meds Allergies Allergy/AdvReac Type Severity Reaction Status Date / Time No Known Allergies Allergy Verified 12/27/24 15:55 Active Medications: Current Medications Acetaminophen (Acetaminophen 325 Mg Tablet) 650 mg PO Q6H PRN PRN Reason: Pain, Mild 1-3,fever,headache Last Admin: 12/28/24 09:47 Dose: 650 mg Albuterol/Ipratropium (Albuterol/Iprat 2.5/0.5mg 3 Ml Ampul.Neb) 3 ml INHALE Q4H PRN PRN Reason: Shortness of Breath/Wheezing Atorvastatin Calcium (Atorvastatin Calcium 20 Mg Tablet) 20 mg PO DAILY [facility] Last Admin: 12/28/24 07:50 Dose: 20 mg Calcium Carbonate (Calcium Carbonate 750 Mg Tab.Chew) 750 mg PO Q4H PRN PRN Reason: Heartburn Ceftriaxone Sodium (Ceftriaxone Sodium 1 Gm Vial) 1 gm IVPUSH Q24H [facility] Last Admin: 12/27/24 21:25 Dose: 1 gm Magnesium Hydroxide (Milk Of Magnesia 30 Ml Oral.Susp) 30 ml PO DAILY PRN PRN Reason: Constipation Melatonin (Melatonin 3 Mg Tablet) 6 mg PO BEDTIME PRN PRN Reason: Insomnia Morphine Sulfate (Morphine Sulfate 2 Mg/Ml Cartridge) 2 mg IVPUSH Q4H PRN; Protocol PRN Reason: Pain, Severe (Pain Scale 7-10) Last Admin: 12/27/24 21:25 Dose: 2 mg Ondansetron HCl (Ondansetron Hcl 4 Mg/2 Ml Vial) 4 mg IVPUSH Q8H PRN PRN Reason: Nausea and Vomiting Pantoprazole Sodium (Pantoprazole Sodium 40 Mg/10 Ml Vial) 40 mg IVPUSH DAILY@0630 [facility] Last Admin: 12/28/24 06:07 Dose: 40 mg Senna (Sennosides 8.6 Mg Tablet) 17.2 mg PO BEDTIME [facility] Last Admin: 12/27/24 21:25 Dose: 17.2 mg Sodium Chloride (0.9 % Sodium Chloride Flush 3 Ml Syringe) [facility] Last Admin: 12/28/24 07:50 Dose: 3 ml Home Medications ?Medication ?Instructions ?Recorded ?Confirmed ?Last Taken ?Type acetaminophen 325 mg tablet 650 mg PO Q6H PRN Pain 04/11/24 12/27/24 04/09/24 History atorvastatin 20 mg tablet 20 mg PO DAILY 04/11/24 12/27/24 12/27/24 History metoprolol succinate 25 mg 25 mg PO DAILY 04/11/24 12/27/24 12/27/24 History tablet,extended release 24 hr warfarin 2.5 mg tablet 2.5 mg PO DAILY@1800 04/11/24 12/27/24 04/07/24 History Physical Exam 2 Vital Signs: Vital Signs: Last Vital Signs Temp 97.3 F 12/28/24 07:16 Pulse 66 12/28/24 07:16 Resp 18 12/28/24 07:16 BP 125/78 12/28/24 07:16 Pulse Ox 100 12/28/24 07:16 O2 Del Method Nasal Cannula 12/28/24 07:16 O2 Flow Rate 2 12/28/24 07:16 BMI result Body Mass Index 31.0 Extrem: Other: Left lower extremity noted to be shortened and externally rotated on inspection No evidence of surrounding erythema, ecchymosis No evidence of infection Patient is able to flex and extend the digits of the left foot without difficulty Compartments soft, nontender Distal sensation intact Capillary refill brisk Results Labs 12/28/24 04:21 12/28/24 04:21 Labs: Abnormal lab results 12/27/24 12/28/24 Range/Units 17:32 04:21 WBC 14.6 H (4.8-10.8) X10*3/uL Hgb 16.2 H D (12.0-16.0) g/dl Immature Gran % (Auto) 0.9 H (0.0-0.4) % Neut % (Auto) 91.5 H 82.7 H (45-73) % Lymph % (Auto) 3.2 L 9.3 L (20-40) % Lymph # (Auto) 0.5 L 0.8 L (1.2-4.9) X10*3/uL Abs Immat Gran (auto) 0.13 H (0.00-0.03) X10*3/uL Absolute Neuts (auto) 13.3 H (2.0-8.3) x10*3/uL PT 16.6 H 15.3 H (10.9-12.4) SEC INR 1.4 H 1.3 H (0.9-1.1) Chloride 109 H 112 H (96-108) mmol/L BUN 19 H 20 H (9-16) mg/dL Random Glucose 123 H (60-115) mg/dL Magnesium 1.5 L (1.6-2.6) mg/dL Total Bilirubin 1.6 H 1.3 H (0.0-1.0) mg/dL AST 32 H (5-31) U/L Total Protein 5.5 L (6.5-8.0) g/dL Albumin 3.3 L (3.5-5.0) g/dL H & H 12/27/24 12/28/24 Range/Units 17:32 04:21 Hgb 16.2 H D 13.9 (12.0-16.0) g/dl Hct 46.6 41.1 (37.0-47.0) % Coagulation 12/27/24 12/28/24 Range/Units 17:32 04:21 INR 1.4 H 1.3 H (0.9-1.1) All other labs normal. Diagnostic results Hip x-ray: report reviewed and image reviewed Assessment and Plan (1) Left displaced femoral neck fracture: Status: Acute (2) Fracture of multiple pubic rami: Status: Acute Plan 1. Intertrochanteric fracture of the left hip I discussed the case with Dr. Wei and explained the extent of the injury to the patient and options available which include surgical intervention. I explained the procedure in detail along with the length of recovery and rehab course. I explained the risk, benefits and alternatives. Risk including, but not limited to infection, blood clots, bleeding, non union or malunion and nerve/tissue damage to surrounding areas. I answered all their questions and with their understanding they have consented to move forward with Operative Fixation of the left hip. The patient will be T&S, med clearance obtained and currently NPO. Pending Medicine risk stratification and clearance. 2. Superior and inferior pubic rami fractures of left side Patient will need to be nonweightbearing in the left lower extremity for 3 months No acute surgical intervention indicated for these pubic rami fracture Procedures Date of Service Date of Service: 12/28/24
--- NOTE | 2024-12-28 11:40 | MHC.CM.PN ---
IMM 12/28/24, pt. lives alone, she does not currently have home health services, she has used [facility] in the past, they are her first choice. For DME, she uses a cane. PCP is confirmed: Dian Bright, HCP to be discussed later. She has been to STR in the past [facility], that is her first choice for STR. DCP: STR, CM to follow for DC needs.
--- NOTE | 2024-12-28 12:41 | PC.NURSE ---
patient requesting to eat/drink something, reached out to ortho provider who state that patient will be going for procedure at some point this afternoon
--- NOTE | 2024-12-28 17:02 | P.PNIM_ITS ---
Subjective Subjective Date of Service: 12/29/24 Interval History: hip fx Review of Systems Still has significant hip pain, denies any other complaints. Review of Systems: Yes all other systems are reviewed and are negative Physical Exam 2 Vital Signs: Vital Signs: Last Vital Signs Temp 97.9 F 12/28/24 14:59 Pulse 82 12/28/24 14:59 Resp 12 12/28/24 14:59 BP 148/80 H 12/28/24 14:59 Pulse Ox 98 12/28/24 14:59 O2 Del Method Room Air 12/28/24 14:59 O2 Flow Rate 2 12/28/24 07:16 BMI result Body Mass Index 31.0 Appearance: Alert.? Oriented X3.? . cvs: rrr, [id number]. res: clear to auscultation ,no rhonchii or wheezing abd: no rebound or guarding ,nt, bs present. ext pulses present , no cyanosis . left hip pain,rom limited neuro: axo3 , nonfocal. Objective Data Active Medications Acetaminophen (Acetaminophen 325 Mg Tablet) 650 mg PO Q6H PRN PRN Reason: Pain, Mild 1-3,fever,headache Last Admin: 12/28/24 09:47 Dose: 650 mg Documented By: HANSA Albuterol/Ipratropium (Albuterol/Iprat 2.5/0.5mg 3 Ml Ampul.Neb) 3 ml INHALE Q4H PRN PRN Reason: Shortness of Breath/Wheezing Atorvastatin Calcium (Atorvastatin Calcium 20 Mg Tablet) 20 mg PO DAILY [facility] Last Admin: 12/28/24 07:50 Dose: 20 mg Documented By: HANSA Calcium Carbonate (Calcium Carbonate 750 Mg Tab.Chew) 750 mg PO Q4H PRN PRN Reason: Heartburn Ceftriaxone Sodium (Ceftriaxone Sodium 1 Gm Vial) 1 gm IVPUSH Q24H [facility] Last Admin: 12/27/24 21:25 Dose: 1 gm Documented By: YOLI Magnesium Hydroxide (Milk Of Magnesia 30 Ml Oral.Susp) 30 ml PO DAILY PRN PRN Reason: Constipation Melatonin (Melatonin 3 Mg Tablet) 6 mg PO BEDTIME PRN PRN Reason: Insomnia Morphine Sulfate (Morphine Sulfate 2 Mg/Ml Cartridge) 2 mg IVPUSH Q4H PRN; Protocol PRN Reason: Pain, Severe (Pain Scale 7-10) Last Admin: 12/27/24 21:25 Dose: 2 mg Documented By: YOLI Ondansetron HCl (Ondansetron Hcl 4 Mg/2 Ml Vial) 4 mg IVPUSH Q8H PRN PRN Reason: Nausea and Vomiting Pantoprazole Sodium (Pantoprazole Sodium 40 Mg/10 Ml Vial) 40 mg IVPUSH DAILY@0630 [facility] Last Admin: 12/28/24 06:07 Dose: 40 mg Documented By: DENISHA Senna (Sennosides 8.6 Mg Tablet) 17.2 mg PO BEDTIME [facility] Last Admin: 12/27/24 21:25 Dose: 17.2 mg Documented By: YOLI Sodium Chloride (0.9 % Sodium Chloride Flush 3 Ml Syringe) 3 ml IVFLUSH QSHIFT [facility] Last Admin: 12/28/24 07:50 Dose: 3 ml Documented By: LAURENTAAMasha Labs 12/28/24 04:21 12/28/24 04:21 Labs: Laboratory Results - last 24 hr 12/27/24 12/28/24 17:32 04:21 MCV 90.8 92.6 MCH 31.6 31.3 MCHC 34.8 33.8 RDW 13.2 13.3 Plt Count 215 D 185 MPV 9.5 9.8 Immature Gran % (Auto) 0.9 H 0.4 Neut % (Auto) 91.5 H 82.7 H Lymph % (Auto) 3.2 L 9.3 L Rich % (Auto) 4.2 7.1 Eos % (Auto) 0.1 0.1 Baso % (Auto) 0.1 0.4 Lymph # (Auto) 0.5 L 0.8 L Rich # (Auto) 0.6 0.6 Eos # (Auto) 0.0 0.0 Baso # (Auto) 0.0 0.0 Abs Immat Gran (auto) 0.13 H 0.03 Absolute Neuts (auto) 13.3 H 6.7 Absolute Nucleated RBC 0.000 0.000 Nucleated RBC % (auto) 0.0 0.0 Smear Tech's Comments VERIFIED PT 16.6 H 15.3 H INR 1.4 H 1.3 H Anion Gap 16 13 Estim Creat Clear Calc 59.5 64.4 Estimated GFR > 60 > 60 Random Glucose 123 H 102 Calcium 8.9 8.6 Magnesium 1.5 L Total Bilirubin 1.6 H 1.3 H AST 32 H 28 ALT 21 21 Alkaline Phosphatase 73 59 Total Protein 6.5 5.5 L Albumin 3.9 3.3 L Blood Type A Positive Antibody Screen NEGATIVE Assessment and Plan (1) Afib: Status: Acute Assessment and Plan: 79-year-old female currently living alone with past medical history bilateral knee replacements, femur repair, hyperlipidemia, UTI atrial fibrillation on Coumadin Left hip fracture/ ramus fracture -per ortho NPO at midnight, plan for surgery in the a.m. -Coumadin held for AFib, INR today 1.4, repeat INR in the a.m. -C-collar removed as CTs of the spine was negative plan: Denies any complaints except the hip pain, walks with stick at home. pain management with morphine IV Patient at least intermediate risk for given surgical procedure. UTI -UA positive, urine culture pending -starting ceftriaxone 1 g daily -Otoole was placed due to significant retention ch AFib -rate currently controlled -Coumadin held due to plan for surgery -INR 1.4 today -no evidence of active bleeding -continue telemetry DVT prophylaxis: Contraindicated due to need for surgery PPI prophylaxis: Protonix Ongoing need: Hip fracture-need surgical intervention, pain management, also IV antibiotic for UTI. Quality Stroke Does the patient have a stroke diagnosis?: No Reason for No Anti-thrombotic by Day Two: Contraindicated VTE Prior VTE?: No VTE Risk Level:: Medical - moderate - high VTE Device Contraindication: N/A - Device Ordered VTE Drug Contraindication: Treatment Not Indicated
[2024-12-28] MEDS: Morphine Sulfate 2 MG/ML CARTRIDGE IVPUSH (17:39)
[2024-12-28] MEDS: Sennosides 8.6 MG TABLET 17.2 MG PO (20:49)
[2024-12-28] MEDS: cefTRIAXone sodium 1 GM VIAL IVPUSH (20:49)
[2024-12-29] VITALS (12 sets, daily range): BP systolic 96–157; BP diastolic 67–100; PULSE 76–99; RESP 16–20; TEMP 36.1–37.3; O2SAT 92–99
[2024-12-29] MEDS: Morphine Sulfate 2 MG/ML CARTRIDGE IVPUSH ×2 (03:56→08:42)
[2024-12-29] MEDS: Pantoprazole Sodium 40 MG/10 ML VIAL IVPUSH (06:16)
[2024-12-29] MEDS: Atorvastatin Calcium 20 MG TABLET PO (08:38)
[2024-12-29] MEDS: 0.9 % Sodium Chloride Flush 3 ML SYRINGE IVFLUSH ×3 (08:42→20:42)
--- NOTE | 2024-12-29 10:21 | MHC.CM.PN ---
PER MD ROUNDS, SURGERY SCHEDULED FOR 1300 HOURS TODAY PT WILL LIKELY NEED STR, [facility] PREFERRED [facility], [facility] IS OFFERING
--- NOTE | 2024-12-29 12:53 | P.CONAN_ITS ---
HPI - Anesthesia Eval Consult details Narrative: 79 yo F presenting for left hip IM nail vs ORIF PMFSH Active Problems Active Problems: All Active Problems Fracture of multiple pubic rami (Acute) Left displaced femoral neck fracture (Acute) Acute UTI (Acute) Afib (Acute) HLD (hyperlipidemia) (Acute) Past Medical History Medical History (Updated 12/27/24 @ 20:24 by RAJI Harris) Afib HLD (hyperlipidemia) Chronic anticoagulation Hypertension A-fib Functional capacity: independent ambulation Family History Family history of problems with anesthesia: No Surgical History Surgical History (Updated 12/29/24 @ 12:29 by Alejandra Baker RN) Knee joint replacement status H/O hernia repair History of Problems with Anesthesia: No Social History Social History Household Members: None Housing: House Are you a primary manager of care to a significant other at home: No Do you presently have visiting nurse or other home services: No Alcohol intake: never Patient Tobacco Use Status: Never used Tobacco service: No Meds Allergies Allergy/AdvReac Type Severity Reaction Status Date / Time No Known Allergies Allergy Verified 12/29/24 12:30 Active Medications: Current Medications Acetaminophen (Acetaminophen 325 Mg Tablet) 650 mg PO Q6H PRN PRN Reason: Pain, Mild 1-3,fever,headache Last Admin: 12/28/24 09:47 Dose: 650 mg Albuterol/Ipratropium (Albuterol/Iprat 2.5/0.5mg 3 Ml Ampul.Neb) 3 ml INHALE Q4H PRN PRN Reason: Shortness of Breath/Wheezing Atorvastatin Calcium (Atorvastatin Calcium 20 Mg Tablet) 20 mg PO DAILY [facility] Last Admin: 12/29/24 08:38 Dose: 20 mg Calcium Carbonate (Calcium Carbonate 750 Mg Tab.Chew) 750 mg PO Q4H PRN PRN Reason: Heartburn Ceftriaxone Sodium (Ceftriaxone Sodium 1 Gm Vial) 1 gm IVPUSH Q24H [facility] Last Admin: 12/28/24 20:49 Dose: 1 gm Magnesium Hydroxide (Milk Of Magnesia 30 Ml Oral.Susp) 30 ml PO DAILY PRN PRN Reason: Constipation Melatonin (Melatonin 3 Mg Tablet) 6 mg PO BEDTIME PRN PRN Reason: Insomnia Morphine Sulfate (Morphine Sulfate 2 Mg/Ml Cartridge) 2 mg IVPUSH Q4H PRN; Protocol PRN Reason: Pain, Severe (Pain Scale 7-10) Last Admin: 12/29/24 08:42 Dose: 2 mg Ondansetron HCl (Ondansetron Hcl 4 Mg/2 Ml Vial) 4 mg IVPUSH Q8H PRN PRN Reason: Nausea and Vomiting Pantoprazole Sodium (Pantoprazole Sodium 40 Mg/10 Ml Vial) 40 mg IVPUSH DAILY@0630 [facility] Last Admin: 12/29/24 06:16 Dose: 40 mg Senna (Sennosides 8.6 Mg Tablet) 17.2 mg PO BEDTIME [facility] Last Admin: 12/28/24 20:49 Dose: 17.2 mg Sodium Chloride (0.9 % Sodium Chloride Flush 3 Ml Syringe) 3 ml IVFLUSH QSHIFT [facility] Last Admin: 12/29/24 08:42 Dose: 3 ml Home Medications ?Medication ?Instructions ?Recorded ?Confirmed ?Last Taken ?Type acetaminophen 325 mg tablet 650 mg PO Q6H PRN Pain 04/11/24 12/29/24 04/09/24 History atorvastatin 20 mg tablet 20 mg PO DAILY 04/11/24 12/27/24 12/27/24 History metoprolol succinate 25 mg 25 mg PO DAILY 04/11/24 12/27/24 12/27/24 History tablet,extended release 24 hr warfarin 2.5 mg tablet 2.5 mg PO DAILY@1800 04/11/24 12/29/24 12/25/24 History Exam Exam Date and Time: 12/29/24 1250 Height,Weight and Vital Signs: Height 5 ft 3 in Weight 75.5 kg Last Vital Signs Temp 98.8 F 12/29/24 12:32 Pulse 99 12/29/24 12:32 Resp 16 12/29/24 12:32 BP 153/100 H 12/29/24 12:32 Pulse Ox 96 12/29/24 12:32 O2 Del Method Room Air 12/29/24 12:32 O2 Flow Rate 2 12/28/24 07:16 Pertinent Lab Results Pertinent Lab Results: Laboratory Tests 12/27/24 12/28/24 17:32 04:21 WBC 14.6 H 8.0 RBC 5.13 4.44 Hgb 16.2 H D 13.9 Hct 46.6 41.1 MCV 90.8 92.6 MCH 31.6 31.3 MCHC 34.8 33.8 RDW 13.2 13.3 Plt Count 215 D 185 MPV 9.5 9.8 Immature Gran % (Auto) 0.9 H 0.4 Neut % (Auto) 91.5 H 82.7 H Lymph % (Auto) 3.2 L 9.3 L [place] % (Auto) 4.2 7.1 Eos % (Auto) 0.1 0.1 Baso % (Auto) 0.1 0.4 Lymph # (Auto) 0.5 L 0.8 L [place] # (Auto) 0.6 0.6 Eos # (Auto) 0.0 0.0 Baso # (Auto) 0.0 0.0 Abs Immat Gran (auto) 0.13 H 0.03 Absolute Neuts (auto) 13.3 H 6.7 Absolute Nucleated RBC 0.000 0.000 Nucleated RBC % (auto) 0.0 0.0 Smear Tech's Comments VERIFIED PT 16.6 H 15.3 H INR 1.4 H 1.3 H Sodium 143 143 Potassium 3.5 4.0 Chloride 109 H 112 H Carbon Dioxide 22 22 Anion Gap 16 13 BUN 19 H 20 H Creatinine 0.79 0.73 Estim Creat Clear Calc 59.5 64.4 Estimated GFR > 60 > 60 Random Glucose 123 H 102 Calcium 8.9 8.6 Magnesium 1.5 L Total Bilirubin 1.6 H 1.3 H AST 32 H 28 ALT 21 21 Alkaline Phosphatase 73 59 Total Protein 6.5 5.5 L Albumin 3.9 3.3 L Blood Type A Positive Antibody Screen NEGATIVE Airway Mallampati Class: I TM Dist: >3cm Neck ROM: Full Loose/Missing/Broken Teeth: Yes (edentulous) Heart: S1S2 Lungs: CTAB Assessment and Plan Assessment Anesthesia Assessment: Anesthesia Plan Discussed and Chart Reviewed Final Anesthetic Review Family History of Problems with Anesthesia: No History of Problems with Anesthesia: No NPO: Yes ASA Class: II Final Preanesthetic Review: No Changes in Pt Med Stat, Meds/Allgs Chart Reviewed, Consent Obtained/Reviewed and Anes Risks/Benef Reviewed Patient Risk: Low Procedure Risk: Low Anesthetic Plan Anesthetic Plan: GA and Agree w/ Assess. and Plan Disposition: Standard PACU
--- NOTE | 2024-12-29 13:10 | MHC.SHP ---
Pre-Procedural Eval Section A - 24 Hr Update-Section A only Date of Service: 12/29/24 The patient is an INPATIENT: Yes Changes since office visit: No Cold of Flu in the past 2 weeks, No New Medical Problems, No Changes in Medication and No Patient answered all questions The patient has been examined within 24 hours of the surgical procedure. The History & Physical has been completed within 30 days and I have reviewed it.: Yes Section B - Complete if H&P > 30 days Chief Complaint: pelvic hip fx Allergies: Allergies Allergy/AdvReac Type Severity Reaction Status Date / Time No Known Allergies Allergy Verified 12/29/24 12:30 Plan I have reviewed the history and physical and performed a pertinent physical examination on my patient. No changes have occurred unless specified. Time Spent With Patient Time: Total time managing care of this patient today ____ minutes.
--- NOTE | 2024-12-29 15:06 | PM.OP ---
Brief Operative Note Date of Service: 12/29/24 Pre-op diagnosis: Left hip iT fracture Post-op diagnosis: same Procedure: ORIF left femur Implants: [place] 85 mm hip screw with 130 keyed 4 hole DHS and 3 distal bicoirtical screws Surgeon: Elgin Wei MD Anesthesia: GETA and local Was an Avionics Integration Engineer used for this Procedure?: Yes Avionics Integration Engineer: Cong Rehman Estimated blood loss (mL): 200 IV fluids (mL): 750 Pathology: none sent Condition: stable Disposition: PACU
--- NOTE | 2024-12-29 18:49 | HO.PM.IMPN ---
Subjective Subjective Date of Service: 12/29/24 Interval History: hip fx Review of Systems still has hip pain no other c/o Physical Exam Vital Signs: Vital Signs: Last Vital Signs Temp 98.2 F 12/29/24 16:11 Pulse 92 12/29/24 16:11 Resp 18 12/29/24 16:11 BP 128/86 12/29/24 16:11 Pulse Ox 98 12/29/24 16:11 O2 Del Method Nasal Cannula 12/29/24 16:11 O2 Flow Rate 2 12/29/24 16:11 BMI result Body Mass Index 29.5 Appearance: Alert.? Oriented X3.? . cvs: [id number], [id number]. res: clear to auscultation ,no rhonchii or wheezing abd: no rebound or guarding ,nt, bs present. ext pulses present , no cyanosis . left hip pain,rom limited neuro: axo3 , nonfocal. Objective Data Active Medications Acetaminophen (Acetaminophen 325 Mg Tablet) 650 mg PO Q6H PRN PRN Reason: Pain, Mild 1-3,fever,headache Last Admin: 12/28/24 09:47 Dose: 650 mg Documented By: HANSA Albuterol/Ipratropium (Albuterol/Iprat 2.5/0.5mg 3 Ml Ampul.Neb) 3 ml INHALE Q4H PRN PRN Reason: Shortness of Breath/Wheezing Atorvastatin Calcium (Atorvastatin Calcium 20 Mg Tablet) 20 mg PO DAILY [facility] Last Admin: 12/29/24 08:38 Dose: 20 mg Documented By: EDOUARD Calcium Carbonate (Calcium Carbonate 750 Mg Tab.Chew) 750 mg PO Q4H PRN PRN Reason: Heartburn Ceftriaxone Sodium (Ceftriaxone Sodium 1 Gm Vial) 1 gm IVPUSH Q24H [facility] Last Admin: 12/28/24 20:49 Dose: 1 gm Documented By: LIZZETTE Enoxaparin Sodium (Enoxaparin Sodium 40 Mg/0.4 Ml Syringe) 40 mg SUBCUT Q24H [facility] Cefazolin Sodium/Dextrose (Ancef) 2 gm in 50 mls @ 100 mls/hr IV POSTOP [facility] Magnesium Hydroxide (Milk Of Magnesia 30 Ml Oral.Susp) 30 ml PO DAILY PRN PRN Reason: Constipation Melatonin (Melatonin 3 Mg Tablet) 6 mg PO BEDTIME PRN PRN Reason: Insomnia Morphine Sulfate (Morphine Sulfate 2 Mg/Ml Cartridge) 2 mg IVPUSH Q4H PRN; Protocol PRN Reason: Pain, Severe (Pain Scale 7-10) Last Admin: 12/29/24 08:42 Dose: 2 mg Documented By: EDOUARD Ondansetron HCl (Ondansetron Hcl 4 Mg/2 Ml Vial) 4 mg IVPUSH Q8H PRN PRN Reason: Nausea and Vomiting Pantoprazole Sodium (Pantoprazole Sodium 40 Mg/10 Ml Vial) 40 mg IVPUSH DAILY@0630 [facility] Last Admin: 12/29/24 06:16 Dose: 40 mg Documented By: LIZZETTE Senna (Sennosides 8.6 Mg Tablet) 17.2 mg PO BEDTIME [facility] Last Admin: 12/28/24 20:49 Dose: 17.2 mg Documented By: LIZZETTE Sodium Chloride (0.9 % Sodium Chloride Flush 3 Ml Syringe) 3 ml IVFLUSH QSHIFT [facility] Last Admin: 12/29/24 17:38 Dose: 3 ml Documented By: EDOUARD Labs 12/28/24 04:21 12/28/24 04:21 Assessment and Plan (1) Afib: Status: Acute Assessment and Plan: 79-year-old female currently living alone with past medical history bilateral knee replacements, femur repair, hyperlipidemia, UTI atrial fibrillation on Coumadin Left hip fracture/ ramus fracture -per ortho NPO at midnight, plan for surgery in the a.m. -Coumadin held for AFib, INR today 1.4, repeat INR in the a.m. -C-collar removed as CTs of the spine was negative plan: Denies any complaints except the hip pain, walks with stick at home. pain management with morphine IV Patient at least intermediate risk for given surgical procedure. going for surgery today UTI -UA positive, urine culture pending -starting ceftriaxone 1 g daily -Otoole was placed due to significant retention ch AFib -rate currently controlled -Coumadin held due to plan for surgery -INR 1.4 today -no evidence of active bleeding -continue telemetry DVT prophylaxis: Contraindicated due to need for surgery PPI prophylaxis: Protonix Ongoing need: Hip fracture-need surgical intervention, pain management, also IV antibiotic for UTI. Quality Stroke Does the patient have a stroke diagnosis?: No Reason for No Anti-thrombotic by Day Two: Contraindicated VTE Prior VTE?: No VTE Risk Level:: Medical - moderate - high VTE Device Contraindication: N/A - Device Ordered VTE Drug Contraindication: Treatment Not Indicated
[2024-12-29] MEDS: Sennosides 8.6 MG TABLET 17.2 MG PO (20:42)
[2024-12-29] MEDS: cefTRIAXone sodium 1 GM VIAL IVPUSH (20:42)
[2024-12-30] VITALS (7 sets, daily range): BP systolic 109–156; BP diastolic 57–90; PULSE 74–110; RESP 16–20; TEMP 36.7–37.4; O2SAT 93–99
[2024-12-30] MEDS: Pantoprazole Sodium 40 MG/10 ML VIAL IVPUSH (06:24)
[2024-12-30] MEDS: 0.9 % Sodium Chloride Flush 3 ML SYRINGE IVFLUSH ×3 (08:36→21:36)
[2024-12-30] MEDS: Atorvastatin Calcium 20 MG TABLET PO (08:36)
[2024-12-30] MEDS: Morphine Sulfate 2 MG/ML CARTRIDGE IVPUSH ×2 (08:44→15:02)
--- NOTE | 2024-12-30 09:58 | PM.PNORT ---
Subjective Subjective Date of Service: 12/30/24 Interval history: Postop day 1 status post cannulated screw fixation of left hip Patient resting comfortably in bed this morning Pain well managed No acute events overnight No other acute complaints or concerns at this time. Physical Exam Vital Signs: Vital Signs: Last Vital Signs Temp 98.7 F 12/30/24 07:22 Pulse 86 12/30/24 09:29 Resp 16 12/30/24 07:22 BP 156/86 H 12/30/24 09:29 Pulse Ox 98 12/30/24 09:29 O2 Del Method Room Air 12/30/24 07:22 O2 Flow Rate 2 12/30/24 03:21 BMI result Body Mass Index 29.5 Extrem: Other: Dressing on left hip clean, dry, intact No evidence of surrounding erythema, ecchymosis No evidence of infection Patient is able to flex and extend the digits of the left foot without difficulty Compartments soft, nontender Distal sensation intact Capillary refill brisk Procedures Date of Service Date of Service: 12/30/24 Progress Note: A&P Assessment and plan (1) Fracture of multiple pubic rami: Status: Acute (2) Left displaced femoral neck fracture: Status: Acute Plan 1. Status post ORIF with dynamic hip screw of left hip 2. Superior and inferior pubic rami fractures Patient appears to be recovering well postoperatively Patient is educated about the typical recovery course Continue pain management Continue PT/OT toe-touch weight-bearing on left lower extremity due to pubic rami fractures Continue with all other recommendations per Medicine Dispo planning-PT/OT, medical clearance, pain management Time Spent With Patient Time: Total time managing care of this patient today ____ minutes. Quality Stroke Does the patient have a stroke diagnosis?: No Reason for No Anti-thrombotic by Day Two: Contraindicated VTE Prior VTE?: No VTE Risk Level:: Medical - moderate - high VTE Device Contraindication: N/A - Device Ordered VTE Drug Contraindication: Treatment Not Indicated
[2024-12-30 10:38] LABS: MANUAL DIFF FLAG NO
[2024-12-30 10:40] LABS: Basophils Percent Auto 0.2 % (0-2); Eosinophils Percent Auto 0.3 % (0-4); Hematocrit 39.3 % (37.0-47.0); Hemoglobin 13.9 g/dl (12.0-16.0); Imm Gran Abs Auto 0.05 X10*3/uL (0.00-0.03); Imm Gran Pct Auto 0.5 % (0.0-0.4); Lymphocytes Absolute Auto 0.6 X10*3/uL (1.2-4.9); Lymphocytes Percent Auto 5.2 % (20-40); Mean Corpuscular HGB Conc 35.4 g/dl (31.0-35.0); Mean Corpuscular Volume 90.3 fL (80.0-98.0); Mean Platelet Volume 9.7 fL (9.4-12.3); Monocytes Absolute Auto 0.7 X10*3/uL (0.1-1.2); Neutrophils Absolute Auto 9.6 x10*3/uL (2.0-8.3); Neutrophils Percent Auto 87.8 % (45-73); Platelet Count 191 X10*3/uL (160-400); Red Blood Count 4.35 X10*6/uL (4.20-5.50); Red Cell Distribution Width 13.3 % (11.0-16.0); White Blood Count 10.9 X10*3/uL (4.8-10.8)
[2024-12-30 10:59] LABS: Anion Gap 13 (12-20); Blood Urea Nitrogen 27 mg/dL (9-16); Calcium 8.9 mg/dL (8.4-10.2); Carbon Dioxide 26 mmol/L (22-29); Chloride 106 mmol/L (96-108); Creatinine Clr Calc Pharmacy 62.7; Estimated Glomerular Filt Rate > 60; Glucose Random 142 mg/dL (60-115); Potassium 4.3 mmol/L (3.3-5.1); Sodium 141 mmol/L (135-145)
[2024-12-30] MEDS: Enoxaparin Sodium 40 MG/0.4 ML SYRINGE SUBCUT (12:22)
--- NOTE | 2024-12-30 14:07 | HO.PM.IMPN ---
Subjective Subjective Date of Service: 12/30/24 Interval History: hip fx Review of Systems patient has hip pain denies any new c/o. Physical Exam Vital Signs: Vital Signs: Last Vital Signs Temp 99.3 F 12/30/24 11:33 Pulse 96 12/30/24 11:33 Resp 18 12/30/24 11:33 BP 122/90 H 12/30/24 11:33 Pulse Ox 99 12/30/24 11:33 O2 Del Method Nasal Cannula 12/30/24 11:33 O2 Flow Rate 2 12/30/24 11:33 BMI result Body Mass Index 29.5 Appearance: Alert.? Oriented X3.? . cvs: rrr, [id number]. res: clear to auscultation ,no rhonchii or wheezing abd: no rebound or guarding ,nt, bs present. ext pulses present , no cyanosis . left hip pain,rom limited neuro: axo3 , nonfocal. Objective Data Active Medications Acetaminophen (Acetaminophen 325 Mg Tablet) 650 mg PO Q6H PRN PRN Reason: Pain, Mild 1-3,fever,headache Last Admin: 12/28/24 09:47 Dose: 650 mg Documented By: HANSA Albuterol/Ipratropium (Albuterol/Iprat 2.5/0.5mg 3 Ml Ampul.Neb) 3 ml INHALE Q4H PRN PRN Reason: Shortness of Breath/Wheezing Atorvastatin Calcium (Atorvastatin Calcium 20 Mg Tablet) 20 mg PO DAILY [facility] Last Admin: 12/30/24 08:36 Dose: 20 mg Documented By: CASSY Calcium Carbonate (Calcium Carbonate 750 Mg Tab.Chew) 750 mg PO Q4H PRN PRN Reason: Heartburn Ceftriaxone Sodium (Ceftriaxone Sodium 1 Gm Vial) 1 gm IVPUSH Q24H [facility] Last Admin: 12/29/24 20:42 Dose: 1 gm Documented By: SHAI Enoxaparin Sodium (Enoxaparin Sodium 40 Mg/0.4 Ml Syringe) 40 mg SUBCUT Q24H [facility] Last Admin: 12/30/24 12:22 Dose: 40 mg Documented By: CASSY Cefazolin Sodium/Dextrose (Ancef) 2 gm in 50 mls @ 100 mls/hr IV POSTOP [facility] Magnesium Hydroxide (Milk Of Magnesia 30 Ml Oral.Susp) 30 ml PO DAILY PRN PRN Reason: Constipation Melatonin (Melatonin 3 Mg Tablet) 6 mg PO BEDTIME PRN PRN Reason: Insomnia Morphine Sulfate (Morphine Sulfate 2 Mg/Ml Cartridge) 2 mg IVPUSH Q4H PRN; Protocol PRN Reason: Pain, Severe (Pain Scale 7-10) Last Admin: 12/30/24 08:44 Dose: 2 mg Documented By: CASSY Ondansetron HCl (Ondansetron Hcl 4 Mg/2 Ml Vial) 4 mg IVPUSH Q8H PRN PRN Reason: Nausea and Vomiting Pantoprazole Sodium (Pantoprazole Sodium 40 Mg/10 Ml Vial) 40 mg IVPUSH DAILY@0630 [facility] Last Admin: 12/30/24 06:24 Dose: 40 mg Documented By: SHAI Senna (Sennosides 8.6 Mg Tablet) 17.2 mg PO BEDTIME [facility] Last Admin: 12/29/24 20:42 Dose: 17.2 mg Documented By: SHAI Sodium Chloride (0.9 % Sodium Chloride Flush 3 Ml Syringe) 3 ml IVFLUSH QSHIFT [facility] Last Admin: 12/30/24 08:36 Dose: 3 ml Documented By: CASSY Labs 12/30/24 10:13 12/30/24 10:19 Labs: Laboratory Results - last 24 hr 12/30/24 12/30/24 10:13 10:19 MCV 90.3 MCH 32.0 MCHC 35.4 H RDW 13.3 Plt Count 191 MPV 9.7 Immature Gran % (Auto) 0.5 H Neut % (Auto) 87.8 H Lymph % (Auto) 5.2 L [place] % (Auto) 6.0 Eos % (Auto) 0.3 Baso % (Auto) 0.2 Lymph # (Auto) 0.6 L [place] # (Auto) 0.7 Eos # (Auto) 0.0 Baso # (Auto) 0.0 Abs Immat Gran (auto) 0.05 H Absolute Neuts (auto) 9.6 H Absolute Nucleated RBC 0.000 Nucleated RBC % (auto) 0.0 Anion Gap 13 Estim Creat Clear Calc 62.7 Estimated GFR > 60 Random Glucose 142 H Calcium 8.9 Assessment and Plan (1) Afib: Status: Acute Assessment and Plan: 79-year-old female currently living alone with past medical history bilateral knee replacements, femur repair, hyperlipidemia, UTI atrial fibrillation on Coumadin Left hip fracture/ ramus fracture -per ortho NPO at midnight, plan for surgery in the a.m. -Coumadin held for AFib, INR today 1.4, repeat INR in the a.m. -C-collar removed as CTs of the spine was negative plan: s/p Status post ORIF (on 12/29/24)with dynamic hip screw of left hip pain management with morphine IV UTI -UA positive, urine culture pending -starting ceftriaxone 1 g daily -Otoole was placed due to significant retention ch AFib -rate currently controlled -Coumadin held due to plan for surgery -INR 1.3 -no evidence of active bleeding -continue telemetry DVT prophylaxis: joel , will check with surgery if can start her warfarin PPI prophylaxis: Protonix Ongoing need: Hip fracture-need surgical intervention, pain management, also IV antibiotic for UTI. Quality Stroke Does the patient have a stroke diagnosis?: No Reason for No Anti-thrombotic by Day Two: Contraindicated VTE Prior VTE?: No VTE Risk Level:: Medical - moderate - high VTE Device Contraindication: N/A - Device Ordered VTE Drug Contraindication: Treatment Not Indicated
[2024-12-30] MEDS: Warfarin Sodium 2.5 MG TABLET PO (17:38)
[2024-12-30] MEDS: Sennosides 8.6 MG TABLET 17.2 MG PO (21:36)
[2024-12-30] MEDS: cefTRIAXone sodium 1 GM VIAL IVPUSH (21:36)
[2024-12-30] MEDS: Melatonin 3 MG TABLET 6 MG PO (21:38)
[2024-12-31] VITALS (7 sets, daily range): BP systolic 111–132; BP diastolic 63–88; PULSE 76–98; RESP 14–18; TEMP 36.4–37; O2SAT 94–97
[2024-12-31] MEDS: Morphine Sulfate 2 MG/ML CARTRIDGE IVPUSH ×3 (03:22→20:07)
[2024-12-31] MEDS: Pantoprazole Sodium 40 MG/10 ML VIAL IVPUSH (05:54)
--- NOTE | 2024-12-31 07:36 | HO.PM.IMPN ---
Subjective Subjective Date of Service: 12/31/24 Interval History: hip fx Review of Systems pain somewhat improving no new c/o Review of Systems: Yes all other systems are reviewed and are negative Physical Exam Vital Signs: Vital Signs: Last Vital Signs Temp 98.1 F 12/31/24 07:33 Pulse 94 12/31/24 07:33 Resp 14 12/31/24 07:33 BP 120/66 12/31/24 07:33 Pulse Ox 95 12/31/24 07:33 O2 Del Method Room Air 12/31/24 07:33 O2 Flow Rate 2 12/30/24 11:33 BMI result Body Mass Index 29.5 Appearance: Alert.? Oriented X3.? . cvs: rrr, [id number]. res: clear to auscultation ,no rhonchii or wheezing abd: no rebound or guarding ,nt, bs present. ext pulses present , no cyanosis . left hip pain,rom limited neuro: axo3 , nonfocal. Objective Data Active Medications Acetaminophen (Acetaminophen 325 Mg Tablet) 650 mg PO Q6H PRN PRN Reason: Pain, Mild 1-3,fever,headache Last Admin: 12/28/24 09:47 Dose: 650 mg Documented By: HANSA Albuterol/Ipratropium (Albuterol/Iprat 2.5/0.5mg 3 Ml Ampul.Neb) 3 ml INHALE Q4H PRN PRN Reason: Shortness of Breath/Wheezing Atorvastatin Calcium (Atorvastatin Calcium 20 Mg Tablet) 20 mg PO DAILY [facility] Last Admin: 12/30/24 08:36 Dose: 20 mg Documented By: CASSY Calcium Carbonate (Calcium Carbonate 750 Mg Tab.Chew) 750 mg PO Q4H PRN PRN Reason: Heartburn Ceftriaxone Sodium (Ceftriaxone Sodium 1 Gm Vial) 1 gm IVPUSH Q24H [facility] Last Admin: 12/30/24 21:36 Dose: 1 gm Documented By: SHAI Enoxaparin Sodium (Enoxaparin Sodium 40 Mg/0.4 Ml Syringe) 40 mg SUBCUT Q24H [facility] Last Admin: 12/30/24 12:22 Dose: 40 mg Documented By: CASSY Cefazolin Sodium/Dextrose (Ancef) 2 gm in 50 mls @ 100 mls/hr IV POSTOP [facility] Magnesium Hydroxide (Milk Of Magnesia 30 Ml Oral.Susp) 30 ml PO DAILY PRN PRN Reason: Constipation Melatonin (Melatonin 3 Mg Tablet) 6 mg PO BEDTIME PRN PRN Reason: Insomnia Last Admin: 12/30/24 21:38 Dose: 6 mg Documented By: SHAI Morphine Sulfate (Morphine Sulfate 2 Mg/Ml Cartridge) 2 mg IVPUSH Q4H PRN; Protocol PRN Reason: Pain, Severe (Pain Scale 7-10) Last Admin: 12/31/24 03:22 Dose: 2 mg Documented By: SHAI Ondansetron HCl (Ondansetron Hcl 4 Mg/2 Ml Vial) 4 mg IVPUSH Q8H PRN PRN Reason: Nausea and Vomiting Senna (Sennosides 8.6 Mg Tablet) 17.2 mg PO BEDTIME [facility] Last Admin: 12/30/24 21:36 Dose: 17.2 mg Documented By: SHAI Sodium Chloride (0.9 % Sodium Chloride Flush 3 Ml Syringe) 3 ml IVFLUSH QSHIFT [facility] Last Admin: 12/30/24 21:36 Dose: 3 ml Documented By: SHAI Warfarin Sodium (Warfarin Sodium 2.5 Mg Tablet) 2.5 mg PO DAILY@1800 [facility] Last Admin: 12/30/24 17:38 Dose: 2.5 mg Documented By: CASSY Labs 12/31/24 07:43 12/31/24 07:43 Labs: Laboratory Results - last 24 hr 12/30/24 12/30/24 10:13 10:19 MCV 90.3 MCH 32.0 MCHC 35.4 H RDW 13.3 Plt Count 191 MPV 9.7 Immature Gran % (Auto) 0.5 H Neut % (Auto) 87.8 H Lymph % (Auto) 5.2 L [place] % (Auto) 6.0 Eos % (Auto) 0.3 Baso % (Auto) 0.2 Lymph # (Auto) 0.6 L [place] # (Auto) 0.7 Eos # (Auto) 0.0 Baso # (Auto) 0.0 Abs Immat Gran (auto) 0.05 H Absolute Neuts (auto) 9.6 H Absolute Nucleated RBC 0.000 Nucleated RBC % (auto) 0.0 Anion Gap 13 Estim Creat Clear Calc 62.7 Estimated GFR > 60 Random Glucose 142 H Calcium 8.9 Assessment and Plan (1) Afib: Status: Acute Assessment and Plan: 79-year-old female currently living alone with past medical history bilateral knee replacements, femur repair, hyperlipidemia, UTI atrial fibrillation on Coumadin Left hip fracture/ ramus fracture -per ortho NPO at midnight, plan for surgery in the a.m. -Coumadin held for AFib, INR today 1.4, repeat INR in the a.m. -C-collar removed as CTs of the spine was negative plan: s/p Status post ORIF (on 12/29/24)with dynamic hip screw of left hip pain management with morphine IV UTI -UA positive, urine culture pending -starting ceftriaxone 1 g daily -Otoole was placed due to significant retention ch AFib -rate currently controlled -Coumadin held due to plan for surgery -INR 1.3 -no evidence of active bleeding -continue telemetry DVT prophylaxis: joel , will check with surgery if can start her warfarin. PPI prophylaxis: Protonix Ongoing need: Hip fracture-need surgical intervention, pain management, also IV antibiotic for UTI. Quality Stroke Does the patient have a stroke diagnosis?: No Reason for No Anti-thrombotic by Day Two: Contraindicated VTE Prior VTE?: No VTE Risk Level:: Medical - moderate - high VTE Device Contraindication: N/A - Device Ordered VTE Drug Contraindication: Treatment Not Indicated
[2024-12-31 08:08] LABS: Basophils Percent Auto 0.3 % (0-2); Eosinophils Absolute Auto 0.1 X10*3/uL (0.0-0.4); Eosinophils Percent Auto 1.4 % (0-4); Hematocrit 34.3 % (37.0-47.0); Hemoglobin 12.1 g/dl (12.0-16.0); Imm Gran Abs Auto 0.06 X10*3/uL (0.00-0.03); Imm Gran Pct Auto 0.6 % (0.0-0.4); Lymphocytes Absolute Auto 0.9 X10*3/uL (1.2-4.9); Lymphocytes Percent Auto 9.1 % (20-40); MANUAL DIFF FLAG NO; Mean Corpuscular HGB Conc 35.3 g/dl (31.0-35.0); Mean Corpuscular Hemoglobin 31.8 pg (27.0-33.0); Mean Corpuscular Volume 90.3 fL (80.0-98.0); Mean Platelet Volume 9.9 fL (9.4-12.3); Monocytes Absolute Auto 0.8 X10*3/uL (0.1-1.2); Monocytes Percent Auto 8.9 % (2-11); Neutrophils Absolute Auto 7.4 x10*3/uL (2.0-8.3); Neutrophils Percent Auto 79.7 % (45-73); Platelet Count 165 X10*3/uL (160-400); Red Cell Distribution Width 13.6 % (11.0-16.0); White Blood Count 9.3 X10*3/uL (4.8-10.8)
[2024-12-31 08:19] LABS: INTERNATIONAL NORM RATIO 1.1 (0.9-1.1); Prothrombin Time 12.7 SEC (10.9-12.4)
[2024-12-31 08:21] LABS: Anion Gap 11 (12-20); Blood Urea Nitrogen 27 mg/dL (9-16); Calcium 8.5 mg/dL (8.4-10.2); Carbon Dioxide 27 mmol/L (22-29); Chloride 105 mmol/L (96-108); Creatinine Clr Calc Pharmacy 68.4; Estimated Glomerular Filt Rate > 60; Glucose Random 96 mg/dL (60-115); Potassium 4.4 mmol/L (3.3-5.1); Sodium 139 mmol/L (135-145)
--- NOTE | 2024-12-31 09:14 | PM.PNORT ---
Subjective Subjective Date of Service: 12/31/24 Interval history: Postop day 2 status post DHS of left hip Patient resting comfortably in bed this morning Pain well managed No acute events overnight No other acute complaints or concerns at this time. Physical Exam Vital Signs: Vital Signs: Last Vital Signs Temp 98.1 F 12/31/24 07:33 Pulse 94 12/31/24 07:33 Resp 14 12/31/24 07:33 BP 120/66 12/31/24 07:33 Pulse Ox 95 12/31/24 07:33 O2 Del Method Room Air 12/31/24 07:33 O2 Flow Rate 2 12/30/24 11:33 BMI result Body Mass Index 29.5 Extrem: Other: Dressing on left hip clean, dry, intact No evidence of surrounding erythema, ecchymosis No evidence of infection Patient is able to flex and extend the digits of the left foot without difficulty Compartments soft, nontender Distal sensation intact Capillary refill brisk Procedures Date of Service Date of Service: 12/31/24 Progress Note: A&P Assessment and plan (1) Fracture of multiple pubic rami: Status: Acute (2) Left displaced femoral neck fracture: Status: Acute Plan 1. Status post ORIF with dynamic hip screw of left hip 2. Superior and inferior pubic rami fractures Patient appears to be recovering well postoperatively Patient is educated about the typical recovery course Lovenox for first 36-48 hrs postop in addition to home warfarin Continue pain management Continue PT/OT toe-touch weight-bearing on left lower extremity due to pubic rami fractures Continue with all other recommendations per Medicine Dispo planning-PT/OT, medical clearance, pain management Time Spent With Patient Time: Total time managing care of this patient today ____ minutes. Quality Stroke Does the patient have a stroke diagnosis?: No Reason for No Anti-thrombotic by Day Two: Contraindicated VTE Prior VTE?: No VTE Risk Level:: Medical - moderate - high VTE Device Contraindication: N/A - Device Ordered VTE Drug Contraindication: Treatment Not Indicated
[2024-12-31] MEDS: Atorvastatin Calcium 20 MG TABLET PO (09:15)
[2024-12-31] MEDS: Metoprolol Succinate ER 25 MG TAB.ER.24H PO (09:41)
[2024-12-31] MEDS: 0.9 % Sodium Chloride Flush 3 ML SYRINGE IVFLUSH ×3 (09:42→19:55)
--- NOTE | 2024-12-31 10:16 | HO.POSTANES ---
Post Anesthesia Evaluation Post Anesthesia Evaluation Date of Service: 12/31/24 Vital Signs: Vital Signs Temp Pulse Resp BP Pulse Ox O2 Del Method 12/31/24 09:41 98 124/83 12/31/24 07:33 98.1 F 94 14 120/66 95 Room Air 12/31/24 03:07 97.5 F 87 18 111/63 94 Room Air 12/30/24 23:28 98.1 F 95 18 122/67 95 Room Air Anesthesia: General LMA Mental Status: Awake Pain Control: Satisfactory Nausea/Vomiting: None Hydration: Adequate Anesthesia-Related Issues: No Anes. Related Issues
[2024-12-31] MEDS: polyethylene glycoL 3350 17 GM POWD.PACK PO (12:58)
[2024-12-31] MEDS: Enoxaparin Sodium 40 MG/0.4 ML SYRINGE SUBCUT (12:58)
[2024-12-31] MEDS: Warfarin Sodium 2.5 MG TABLET PO (18:05)
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
[2024-12-31] MEDS: cefTRIAXone sodium 1 GM VIAL IVPUSH (19:55)
[2024-12-31] MEDS: Sennosides 8.6 MG TABLET 17.2 MG PO (19:55)
[2024-12-31] MEDS: Melatonin 3 MG TABLET 6 MG PO (19:55)
[2025-01-01 03:23] VITALS: BP 112/60; RESP 17; TEMP 36.6; O2SAT 96
[2025-01-01 05:39] LABS: MANUAL DIFF FLAG NO
[2025-01-01 05:44] LABS: Basophils Percent Auto 0.4 % (0-2); Eosinophils Absolute Auto 0.2 X10*3/uL (0.0-0.4); Eosinophils Percent Auto 2.6 % (0-4); Hematocrit 32.9 % (37.0-47.0); Hemoglobin 11.5 g/dl (12.0-16.0); Imm Gran Abs Auto 0.05 X10*3/uL (0.00-0.03); Imm Gran Pct Auto 0.6 % (0.0-0.4); Lymphocytes Absolute Auto 0.7 X10*3/uL (1.2-4.9); Lymphocytes Percent Auto 7.9 % (20-40); Mean Corpuscular Hemoglobin 31.7 pg (27.0-33.0); Mean Corpuscular Volume 90.6 fL (80.0-98.0); Mean Platelet Volume 9.7 fL (9.4-12.3); Monocytes Absolute Auto 0.7 X10*3/uL (0.1-1.2); Monocytes Percent Auto 8.6 % (2-11); Neutrophils Absolute Auto 6.8 x10*3/uL (2.0-8.3); Neutrophils Percent Auto 79.9 % (45-73); Platelet Count 167 X10*3/uL (160-400); Red Blood Count 3.63 X10*6/uL (4.20-5.50); Red Cell Distribution Width 13.5 % (11.0-16.0); White Blood Count 8.5 X10*3/uL (4.8-10.8)
[2025-01-01 05:50] LABS: INTERNATIONAL NORM RATIO 1.1 (0.9-1.1); Prothrombin Time 12.5 SEC (10.9-12.4)
[2025-01-01 05:58] LABS: Anion Gap 11 (12-20); Blood Urea Nitrogen 20 mg/dL (9-16); Calcium 8.1 mg/dL (8.4-10.2); Carbon Dioxide 24 mmol/L (22-29); Chloride 105 mmol/L (96-108); Creatinine Clr Calc Pharmacy 75.1; Estimated Glomerular Filt Rate > 60; Glucose Random 107 mg/dL (60-115); Potassium 3.9 mmol/L (3.3-5.1); Sodium 136 mmol/L (135-145)
[2025-01-01 07:42] VITALS: BP 110/59; PULSE 90; RESP 16; TEMP 36.3; O2SAT 95
[2025-01-01] MEDS: 0.9 % Sodium Chloride Flush 3 ML SYRINGE IVFLUSH (08:27)
[2025-01-01] MEDS: Metoprolol Succinate ER 25 MG TAB.ER.24H PO (08:27)
[2025-01-01] MEDS: polyethylene glycoL 3350 17 GM POWD.PACK PO (08:28)
[2025-01-01] MEDS: Atorvastatin Calcium 20 MG TABLET PO (08:28)
--- NOTE | 2025-01-01 09:01 | PM.PNORT ---
Subjective Subjective Date of Service: 01/01/25 Interval history: Postop day 3 status post DHS of left hip with associated left superior and inferior pubic rami fractures Patient resting comfortably in bed this morning Pain well managed No acute events overnight No other acute complaints or concerns at this time. Physical Exam Vital Signs: Vital Signs: Last Vital Signs Temp 97.3 F 01/01/25 07:42 Pulse 90 01/01/25 07:42 Resp 16 01/01/25 07:42 BP 110/59 L 01/01/25 07:42 Pulse Ox 95 01/01/25 07:42 O2 Del Method Room Air 01/01/25 07:42 O2 Flow Rate 2 12/30/24 11:33 BMI result Body Mass Index 29.5 Extrem: Other: Dressing on left hip clean, dry, intact No evidence of surrounding erythema, ecchymosis No evidence of infection Patient is able to flex and extend the digits of the left foot without difficulty Compartments soft, nontender Distal sensation intact Capillary refill brisk Procedures Date of Service Date of Service: 01/01/25 Progress Note: A&P Assessment and plan (1) Fracture of multiple pubic rami: Status: Acute (2) Left displaced femoral neck fracture: Status: Acute Plan 1. Status post ORIF with dynamic hip screw of left hip 2. Superior and inferior pubic rami fractures Patient appears to be recovering well postoperatively Patient is educated about the typical recovery course Lovenox for first 36-48 hrs postop in addition to home warfarin Continue pain management Continue PT/OT toe-touch weight-bearing on left lower extremity due to pubic rami fractures Continue with all other recommendations per Medicine Dispo planning-PT/OT, medical clearance, pain management Time Spent With Patient Time: Total time managing care of this patient today ____ minutes. Quality Stroke Does the patient have a stroke diagnosis?: No Reason for No Anti-thrombotic by Day Two: Contraindicated VTE Prior VTE?: No VTE Risk Level:: Medical - moderate - high VTE Device Contraindication: N/A - Device Ordered VTE Drug Contraindication: Treatment Not Indicated
[2025-01-01] MEDS: Acetaminophen 325 MG TABLET 650 MG PO (09:07)
[2025-01-01] MEDS: oxyCODONE HCl Immed Release 5 MG TABLET PO ×2 (09:08→13:52)
[2025-01-01 11:31] VITALS: BP 104/58; PULSE 85; RESP 16; TEMP 36.7; O2SAT 98
[2025-01-01] MEDS: Enoxaparin Sodium 40 MG/0.4 ML SYRINGE SUBCUT (12:47)
--- NOTE | 2025-01-01 13:19 | P.DS_ITS ---
DS: Providers Provider Date of Service: 01/01/25 Date of admission: 12/27/24 18:58 Date of discharge: 01/01/25 Primary care physician: Dian Bright MD Consults: 12/27/24 20:16 Consult to Orthopedics Routine Consulting Provider: [facility] [place] [facility] Reason for consultation: left femur fx Has provider been notified: Yes Attending physician on discharge: Tiffanie Hammonds Discharging clinician: Tiffanie Hammonds DS: Diagnosis Discharge Diagnosis (1) Fracture of multiple pubic rami: Status: Acute (2) Left displaced femoral neck fracture: Status: Acute DS: Summary Hospital Course Hospital Course: HPI:79-year-old female currently living alone with past medical history bilateral knee replacements, femur repair, hyperlipidemia, UTI atrial fibrillation on Coumadin presents to the emergency room via ambulance status post unwitnessed fall. Patient states she was going downstairs to obtain the mail and fell backwards and then rolled down the steps and landed at the bottom. Patient denies any loss of consciousness or strike to the head. Patient denies any head or neck pain but is having left lower extremity pain. Patient received medication for pain and is currently somewhat groggy and patient is unable to recall specifics regarding her medical history. Patient diagnosed with left proximal femur and left superior and inferior pubic rami fracture. HEAD CT and CT of the cervical spine negative for acute findings and the collar has since been removed. Penny is being placed due to significant urinary retention and the need for surgery in the next 24 hours. Incidentally UA is positive for possible UTI and patient was started on ceftriaxone. Coumadin will be held and INR coming in was 1.4. Patient will be made NPO at midnight for possible surgery in the morning with Orthopedics. Hospital course: 79-year-old female currently living alone with past medical history bilateral knee replacements, femur repair, hyperlipidemia, UTI atrial fibrillation on Coumadin Left hip fracture/ ramus fracture: C-collar removed as CTs of the spine was negative, s/p orif : seems improivng ,pain also improving: will be going for rehab as above. ortho recomended 48 hrs lovenox prophylax with warfarin ( keep lovenox 1 more day). UTI-UA positive, urine culture -klebsiella pneumonia started on ceftriaxone 1 g daily since 12/27 ,urine culture -klebsiella pneumonia , switched to po ceftin 250 mg po bid. urinary retenstion: has penny ,added flomax will need voiding trial in 24 hours ,consider outpatient urology eval if needed. ch AFib-rate currently controlled continue metoprolol,inr subtherpeutic continue warfarin and moniter inr closely. plan: Left hip fracture/ ramus fracture: s/p orif : seems improivng ,pain also improving: will be going for rehab as above. ortho recomended 48 hrs lovenox prophylax with warfarin ( keep lovenox 1 more day). moniter inr closely Added Flomax 0.4 mg at bedtime, consider voiding trial next 24 hours and consider outpatient urology evaluation if needed. complete ceftin 250 mg po bidx2 more days . Above management discussed with the patient in detail length, she understand and in agreement with the above plan, time spent 40 minute, all question answered, staff was present during conversation. Time Attestation Total time managing care of this patient today: 40 mintues. Discharge Coordination Time (in mins): 40 min Quality: Safe Use of Opioids Does Pt have an Active Cancer Diagnosis on the Problem List?: No Quality: Stroke Does the patient have a stroke diagnosis?: No Physical Exam Vital Signs: Vital Signs: Last Vital Signs Temp 98.1 F 01/01/25 11:31 Pulse 85 01/01/25 11:31 Resp 16 01/01/25 11:31 BP 104/58 L 01/01/25 11:31 Pulse Ox 98 01/01/25 11:31 O2 Del Method Room Air 01/01/25 11:31 O2 Flow Rate 2 12/30/24 11:33 BMI result Body Mass Index 29.5 Appearance: Alert.? Oriented X3.? . cvs: rrr, [id number]. res: clear to auscultation ,no rhonchii or wheezing abd: no rebound or guarding ,nt, bs present. ext pulses present , no cyanosis . left hip-able to flex and extend the digits of the left foot without difficulty neuro: axo3 , nonfocal. DS: Data Data Completed and Pending Labs on day of discharge: Laboratory Results - last 24 hr 01/01/25 05:34 WBC 8.5 RBC 3.63 L Hgb 11.5 L Hct 32.9 L MCV 90.6 MCH 31.7 MCHC 35.0 RDW 13.5 Plt Count 167 MPV 9.7 Immature Gran % (Auto) 0.6 H Neut % (Auto) 79.9 H Lymph % (Auto) 7.9 L [place] % (Auto) 8.6 Eos % (Auto) 2.6 Baso % (Auto) 0.4 Lymph # (Auto) 0.7 L [place] # (Auto) 0.7 Eos # (Auto) 0.2 Baso # (Auto) 0.0 Abs Immat Gran (auto) 0.05 H Absolute Neuts (auto) 6.8 Absolute Nucleated RBC 0.000 Nucleated RBC % (auto) 0.0 PT 12.5 H INR 1.1 Sodium 136 Potassium 3.9 Chloride 105 Carbon Dioxide 24 Anion Gap 11 L BUN 20 H Creatinine 0.61 Estim Creat Clear Calc 75.1 Estimated GFR > 60 Random Glucose 107 Calcium 8.1 L Imaging Chest x-ray: Radiologist's impression: ITS Impressions Knee X-Ray 12/28/24 10:28 IMPRESSION: Status post left total knee arthroplasty. Guidance Fluoroscopy 12/29/24 13:25 IMPRESSION: Fluoroscopy during procedure. Please see procedure report for additional information. Discharge Plan Discharge Anticipated Discharge Date/Time: 01/01/25 12:54 Patient Disposition: er SNF Discharge Diagnosis: hip fracture, afib Referrals: Dian Bright MD [Primary Care Provider] - 1 Week Discharge Medications: New enoxaparin 40 mg/0.4 mL Syringe 40 mg subcut Q24H Qty: 1 0RF cefuroxime axetil 500 mg Tablet 250 mg PO Q12H Qty: 2 0RF polyethylene glycol 3350 17 gram Powder In Packet 17 g PO DAILY PRN (Reason: constipation) Qty: 1 0RF oxycodone 5 mg Tablet 5 mg PO Q4H PRN (Reason: Pain, Severe (Pain Scale 7-10)) Qty: 20 0RF Rx Instructions: Partial Fill upon patient request. tamsulosin [Flomax] 0.4 mg capsule 0.4 mg PO BEDTIME Qty: 30 0RF Continued acetaminophen 325 mg Tablet 650 mg PO Q6H PRN (Reason: Pain) atorvastatin 20 mg tablet 20 mg PO DAILY warfarin 2.5 mg tablet 2.5 mg PO DAILY@1800 metoprolol succinate 25 mg tablet extended release 24 hr 25 mg PO DAILY Discharge Orders: Discharge Order (Routine); Ordered 01/01/25 Ordered By: Tiffanie Hammonds Diet: Advance to usual diet Activity on Discharge: As tolerated Stand Alone Forms: Patient Portal Discharge page Print Language: Amharic Activity Restrictions/Additional Instructions: Physical therapy for hip ORIF with pubic rami fractures: Nonweightbearing x2 weeks, weight-bearing as tolerated with a walker after that., posterior precautions, gait training, range of motion, strength Limit stair climbing No showering, no tub bath-keep dressing clean dry and intact No driving for 6 weeks Continue home warfarin for DVT prophylaxis Follow-up with [facility] in 2 weeks Care Plan Goals: Left hip fracture/ ramus fracture: s/p orif : seems improivng ,pain also improving: will be going for rehab as above. ortho recomended 48 hrs lovenox prophylax with warfarin ( keep lovenox 1 more day). moniter inr closely Added Flomax 0.4 mg at bedtime, consider voiding trial next 24 hours and consider outpatient urology evaluation if needed. complete ceftin 250 mg po bidx2 more days . Health Concerns: as above. Plan of Treatment: as above. Assessment: as above.
[2025-01-01] MEDS: cefuroxime axetiL 500 MG TABLET PO (13:52)
--- NOTE | 2025-01-01 13:58 | MHC.CM.PN ---
PT WILL DC TO [facility] TODAY AT 1400 HOURS VIA [facility]
[2025-01-01 14:56] VITALS: BP 127/69; PULSE 98; RESP 16; TEMP 37.1; O2SAT 99
--- NOTE | 2025-01-01 15:05 | PC.NURSE ---
Pt d/c to [facility] via ambulance. Pt left w zohaib in place per MD. VSS. Alert an oriented,
--- NOTE | 2025-01-03 07:32 | P.OP_ITS ---
Operative Note Operative Note Date of Service: 12/29/24 Narrative: Date of Service: 12/29/24 Pre-op diagnosis: Left hip iT fracture Post-op diagnosis: same Procedure: ORIF left femur Implants: Nafisa [place] 85 mm hip screw with 130 keyed 4 hole DHS and 3 distal bicoirtical screws Surgeon: Elgin Wei MD Anesthesia: GETA and local Was an Silk Screen Operator used for this Procedure?: Yes Silk Screen Operator: Cong Rehman Estimated blood loss (mL): 200 IV fluids (mL): 750 Pathology: none sent Condition: stable Disposition: PACU Indications: This is a 79-year-old woman with a intertrochanteric femur fracture on the left. She had a distal femoral replacement for periprosthetic fracture. An intramedullary aimee was not possible and so open reduction internal fixation with an [place]/dynamic hip screw was indicated. Procedure in detail: Patient was brought to the operating room and prepped and draped in standard sterile fashion. Time-out was called to identify proper site procedure proper surgeon and IV antibiotics per weight were administered. She was positioned on the fracture table and a traction and slight internal rotation were performed and biplanar fluoroscopy confirmed initial fracture reduction. I then made a proximally 8 cm incision over the lateral aspect of the left femur. Dissection was taken down to the proximal femur and the iliotibial band was incised in line with the incision then a periosteal elevator was used to clear the lateral proximal femur. I then trialed neck angles with the transfer car operator drier and the 130 degree was the most closely reproductive of her normal in a head neck angle. Therefore a guidewire was placed into the femoral neck and head which was center center on biplanar fluoroscopy with a tip apex of less than 2.5 being the goal. I was satisfied with the position of the hardware and the fracture reduction at this point. I measured a 85 mm screw and then over-drilled with the [place] drill guide to the appropriate depth. I then selected a 4 hole side plate with keyed hip screw. This was inserted on the lateral femur and then 3 bicortical nonlocking screws were placed using standard AO technique. This reproduced the normal anatomy anatomically and the tip apex distance was less than 2.5. I then copiously irrigated and closed with absorbable sutures vivek and injected 30 mL of into the area of the incisions. A layered closure was performed was vivek on the skin. Traction was let down patient was placed in sterile dressing awakened from anesthesia brought to recovery room stable condition there were no known complications.
== END 2025-01-01 15:12 | disposition skilled nursing facility (03) | DRG 956 ==
LOC: HO.ED 19:00 → HO.EDOVER 19:17 → HO.S3 12-28 16:31
PROVIDERS: Nurse Practitioner Family; Orthopaedic Surgery; Physician Assistant Medical; Admitting Provider Physician Assistant; Emergency Provider Emergency Medicine; PCP Internal Medicine; Visit Provider Internal Medicine
PROC: 0QS704Z Reposition Left Upper Femur with Internal Fixation Device, Open Approach (ICD-10-PCS; principal; 2024-12-29 13:00)
DX: S72.142A Displaced intertrochanteric fracture of left femur, initial encounter for closed fracture (principal); S32.592A Other specified fracture of left pubis, initial encounter for closed fracture; N39.0 Urinary tract infection, site not specified; I48.20 Chronic atrial fibrillation, unspecified; B96.1 Klebsiella pneumoniae [K. pneumoniae] as the cause of diseases classified elsewhere; R33.9 Retention of urine, unspecified; I10 Essential (primary) hypertension; W10.9XXA Fall (on) (from) unspecified stairs and steps, initial encounter; Z79.01 Long term (current) use of anticoagulants; Z79.899 Other long term (current) drug therapy
CPT/HCPCS: 36415; 70450; 72125; 72170; 73552; 73560; 73590; 80048; 80053; 83735; 85025; 85610; 86850; 86900; 86901; 93005; 97161; 97165; 97166; 97530; 99285; C1713; J0131; J0690; J0696; J1100; J1171; J1650; J2003; J2270; J2371; J2405; J2470; J2704; J2795; J3010

== ENCOUNTER → 2024-12-27 16:01 | Outpatient (BNV) | payer MEDICARE, SELFPAY | PROVIDERS: PCP Internal Medicine; Visit Provider Radiology Diagnostic Radiology | DX: M43.16 Spondylolisthesis, lumbar region (principal); G44.309 Post-traumatic headache, unspecified, not intractable; M79.652 Pain in left thigh; R10.2 Pelvic and perineal pain; M79.662 Pain in left lower leg | CPT/HCPCS: 70450; 72125; 72170; 73552; 73590 ==

== ENCOUNTER → 2024-12-27 16:02 | Outpatient (BNV) | payer MEDICARE, SELFPAY | PROVIDERS: Admitting Provider Nurse Practitioner Family; Emergency Provider Emergency Medicine; PCP Internal Medicine; Visit Provider Internal Medicine Cardiovascular Disease | DX: I48.91 Unspecified atrial fibrillation (principal) | CPT/HCPCS: 93010 ==

== ENCOUNTER 2024-12-27 18:58 | Outpatient (BNV) | payer MEDICARE, SELFPAY | END 2024-12-31 12:20 | PROVIDERS: Admitting Provider Physician Assistant; Emergency Provider Emergency Medicine; PCP Internal Medicine; Visit Provider Radiology Diagnostic Radiology | DX: S32.512D Fracture of superior rim of left pubis, subsequent encounter for fracture with routine healing (principal) | CPT/HCPCS: 72170 ==

== ENCOUNTER 2024-12-27 18:58 | Outpatient (BNV) | payer MEDICARE, SELFPAY | END 2024-12-28 10:09 | PROVIDERS: Admitting Provider Nurse Practitioner Family; Emergency Provider Emergency Medicine; PCP Internal Medicine; Visit Provider Radiology Diagnostic Radiology | DX: Z96.652 Presence of left artificial knee joint (principal) | CPT/HCPCS: 73560 ==

== ENCOUNTER → 2024-12-27 18:58 | Outpatient (BNV) | payer MEDICARE, SELFPAY | PROVIDERS: Admitting Provider Nurse Practitioner Family; Emergency Provider Emergency Medicine; PCP Internal Medicine | DX: S72.002A Fracture of unspecified part of neck of left femur, initial encounter for closed fracture (principal); S32.599A Other specified fracture of unspecified pubis, initial encounter for closed fracture | CPT/HCPCS: 99223 ==

== ENCOUNTER → 2024-12-27 18:58 | Outpatient (BNV) | payer MEDICARE, SELFPAY | PROVIDERS: Admitting Provider Nurse Practitioner Family; Emergency Provider Emergency Medicine; PCP Internal Medicine; Visit Provider Nurse Practitioner Family | DX: S72.002A Fracture of unspecified part of neck of left femur, initial encounter for closed fracture (principal); S32.599A Other specified fracture of unspecified pubis, initial encounter for closed fracture | CPT/HCPCS: 99223 ==

== ENCOUNTER 2025-01-15 08:12 | Outpatient (REF) | payer MEDICARE, SELFPAY | END 2025-01-15 08:13 | disposition home or self-care (01) | LOC: HO.HOSX 08:12 | DX: Z13.89 Encounter for screening for other disorder (principal) ==

== ENCOUNTER 2025-01-18 08:56 | Outpatient (REF) | payer MEDICARE, SELFPAY ==
--- NOTE | ~2025-01-18 | XR_ITS ---
EXAMINATION: XR PELVIS CLINICAL INFORMATION: M25.559 - Pain in unspecified hip COMPARISON: December 31, 2024. TECHNIQUE: AP view of the pelvis. FINDINGS: Sclerosis along the sacroiliac joints and symphysis pubis. No acute cortical disruption. No lytic or blastic lesion. Dynamic screw, left hip, unchanged secondary to old intratrochanteric fracture. Vascular complications, aorta.. XR/XR pelvis 1-2V IMPRESSION: No acute fracture. Stable. Electronically signed by: James Núñez MD 01/18/2025 09:56 AM EDT
== END 2025-01-18 08:57 | disposition home or self-care (01) ==
LOC: HO.HOSX 08:56
PROVIDERS: Visit Provider Physician Assistant
DX: S72.042A Displaced fracture of base of neck of left femur, initial encounter for closed fracture (principal); M25.559 Pain in unspecified hip; S32.82XA Multiple fractures of pelvis without disruption of pelvic ring, initial encounter for closed fracture
CPT/HCPCS: 72170; 99212

== ENCOUNTER 2025-01-18 09:25 | Outpatient (AMB) | payer SELFPAY ==
--- NOTE | 2025-01-18 09:41 | A.OFFVIS_ITS ---
Vital Signs 01/18/25 09:46 Height 5 ft 3 in Weight 160 lb BMI 28.3 Intake Visit Reasons: PO ORIF of L hip DOS 12/29/24 Intake Note: Yolanda is a 79 year old female who presents today for a post op appointment s/p left hip ORIF 12/29/24 NE. Patient reports she is very sore in her hip. She has been working with physical therapy. Allergies No Known Allergies Allergy (Verified 01/18/25 09:42) HPI HPI PO ORIF of L hip DOS 12/29/24: Details: Ms. Hill is a 79-year-old female who presents to the office today status post right hip DHS on 12/29/[address] Wei. Patient is currently at [facility] and receiving physical therapy services. She reports that she has been having significant soreness and difficulty progressing with physical therapy. [facility] Medical History (Updated 01/09/25 @ 00:02 by Leni Nguyễn) Afib HLD (hyperlipidemia) Chronic anticoagulation Hypertension A-fib Surgical History Knee joint replacement status H/O hernia repair Social History Household Members: None Housing: House Are you a primary intensive care medicine specialist to a significant other at home: No Do you presently have visiting nurse or other home services: No Alcohol intake: never Comment: COUNTS CORRECT Patient Tobacco Use Status: Never used Tobacco service: No Review of Systems Const All systems reviewed & are unremarkable except as noted in HPI and below Physical Exam Const General: cooperative, healthy appearing and no acute distress Resp Effort & Inspection: normal respiratory effort and able to speak in complete sentences Extrem Other: Left hip incision site is clean dry and intact. [place] intact. No surrounding erythema or drainage. No signs of infection. Assessment & Plan Assessment & Plan (1) Left displaced femoral neck fracture: Code(s): S72.002A - Fracture of unspecified part of neck of left femur, initial encounter for closed fracture Category: Medical (2) Fracture of multiple pubic rami: Code(s): S32.599A - Other specified fracture of unspecified pubis, initial encounter for closed fracture Category: Medical Plan Ms. Hill is a 79-year-old female who presents to the office today status post right hip DHS on 12/29/[address] Wei. Patient is currently at [facility] and receiving physical therapy services. She reports that she has been having significant soreness and difficulty progressing with physical therapy. While in the office today, vivek removed and Steri-Strips were applied. There are no signs of infection at this time. Patient will continue nonweightbearing left lower extremity due to superior and inferior pubic rami fractures. Physical therapy may work on glute core and quad strengthening. Continue gait training with the use of a walker while nonweightbearing of the left lower extremity. She will follow up in 4 weeks with repeat x-rays, sooner if needed. X-rays of the pelvis which were obtained while in the office today and were reviewed by me, Becca eGronimo PA-C, revealed intact orthopedic hardware with redemonstration of superior and inferior pubic rami fractures with evidence of healing. Orders: Orders XR pelvis 1-2V Today M25.559 - Pain in unspecified hip Coding Level of Care Code Global (20045) Diagnoses Left displaced femoral neck fracture S72.002A Fracture of multiple pubic rami S32.599A
[2025-01-18 09:46] VITALS: BMI 28.3
== END 2025-01-18 10:02 | disposition home or self-care (01) ==
LOC: HO.HOS 09:25
PROVIDERS: PCP Internal Medicine; Visit Provider Physician Assistant
DX: S72.002A Fracture of unspecified part of neck of left femur, initial encounter for closed fracture (principal); S32.599A Other specified fracture of unspecified pubis, initial encounter for closed fracture
CPT/HCPCS: 99024

== ENCOUNTER → 2025-01-18 09:31 | Outpatient (BNV) | payer MEDICARE, SELFPAY | PROVIDERS: Visit Provider Radiology Diagnostic Radiology | DX: M25.551 Pain in right hip (principal) | CPT/HCPCS: 72170 ==

== ENCOUNTER 2025-02-13 10:44 | Outpatient (REF) | payer MEDICARE, SELFPAY ==
--- OUTSIDE RECORDS SUMMARY | 2025-02-14 11:28 | XMS_ITS | Clinical Summary ---
Author Organization [facility] Address [address] [place] [address] Care Team Providers Care Plug Grower Name Role Phone Dian Bright MD Primary Care Provider Medications Medication Sig Dispensed Refills Start Date End Date Status atorvastatin (LIPITOR) tablet 10 mg Take 1 tablet by mouth daily. 0 08/06/2021 Active warfarin (COUMADIN) 2.5 MG tablet Take 2.5-5 mg by mouth. 0 08/06/2021 Active Active Problems Problem Noted Date Diagnosed Date Class 2 obesity due to excess calories in adult 10/18/2021 Elevated hematocrit 10/08/2021 Atrial fibrillation 04/05/2020 Atopic dermatitis 03/17/2018 Chronic venous insufficiency 04/08/2016 Hyperlipidemia 02/01/2012 Varicose veins 01/04/2010 OA (osteoarthritis) of knee 10/05/2008 Family History Medical History Relation Name Comments Diabetes Father Osteoarthritis Mother Relation Name Status Comments Father (Age 72) Complicati ons of diabetes Mother (Age 88) Complicati ons of hip surgery Social History Tobacco Use Types Packs/Day Years Used Date Smoking Tobacco: Never Smokeless Tobacco: Never Alcohol Use Standard Drinks/Week Comments Yes 1 (1 standard drink = 0.6 oz pur e alcohol) Sex and Gender Information Value Date Recorded Sex Assigned at Not on file Gender Identity Not on file Sexual Orientation Not on file Last Filed Vital Signs Vital Sign Reading Time Taken Comments Blood Pressure 150/92 10/08/2021 9:35 AM EST Pulse 87 10/08/2021 9:35 AM EST Temperature 36.3 C (97.4 F) 10/08/2021 9:35 AM EST Respiratory Rate - - Oxygen Saturation 100% 10/08/2021 9:35 AM EST Inhaled Oxygen Concentration - - Weight 89.4 kg (197 lb) 10/08/2021 9:35 AM EST Height 158.5 cm (5' 2.4 ) 10/08/2021 9:35 AM EST Body Mass Index 35.57 10/08/2021 9:35 AM EST Plan of Treatment Health Maintenance Due Date Last Done Comments Hepatitis C Screening 1945 Depression Screening 1959 Preventative Health Evaluation 1965 Shingrix-Zoster Vaccine (1 of 2) 1997 Fall Risk Assessment 2012 Osteoporosis Screening (DEXA Scan) 2012 DTap / Tdap / Td (2 - Td or Tdap) 10/05/2018 10/05/2008 RSV Adult > 60+ Yrs or (1 - 1-dose 75+ series) 2022 COVID-19 Vaccine ( season) 2024 07/08/2021, 11/06/2020 Influenza Vaccine (#1) 2025 , 03/27/2020, 04/18/2019, Additional history exists Pneumococcal Vaccine Completed 06/01/2016, 07/21/2015, 08/04/2012 Hepatitis B Vaccines Aged Out No long er eligible based on patient's age to complete this topic RSV Ped < 20 months Aged Out No longe r eligible based on patient's age to complete this topic Care Teams Plug Grower Relationship Specialty Start Date End Date Dian Bright MD PCP - General Internal Medicine 09/16/21
--- OUTSIDE RECORDS SUMMARY | 2025-02-14 11:28 | XMS_ITS | Data Portability ---
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 Primary Care Provider Assessment Encounter Date Assessment Date Assessment LastModified by Organization Details LastModified Time 12/13/2023 12/13/2023 Labs 12/12:Na 141 -K 4.3- Bun 17- Cr 0.7-wbc- 5.6-hgb 10.7- hct 33.1-plt 236 Not available 12/14/2023 21:48:39 12/17/2023 12/17/2023 Labs 12/12:Na 141 -K 4.3- Bun 17- Cr 0.7-wbc- 5.6-hgb 10.7- hct 33.1-plt 236 Not available 12/17/2023 14:12:49 12/20/2023 12/20/2023 Labs 12/12:Na 141 -K 4.3- Bun 17- Cr 0.7-wbc- 5.6-hgb 10.7- hct 33.1-plt 236 Labs 12/19: Na 142-K 4.5-Bun 18-Cr 0.8-wbc-4.5-h gb 11.1-hct 34.7-plt 270- Not available 12/20/2023 10:11:17 Plan of Treatment Reminders Order Date Submit Date Provider Last Modified By Organization Details Last Modified Time Details Appointments None record ed. Lab None record ed. Referral None record ed. Procedures None record ed. Surgeries None record ed. Imaging None record ed. Medication Orders None record ed. Patient TargetsNo targets recorded. Patient InstructionsNo instructions recorded. Reason for Referral None Reported. Problems Name Problem SNOMED Code Status Onset Date Resolution Date Notes Provider Name and Address Organization Details Recorded Time Fracture of femur 46231958 Active 2023 RODGER ULLOA [address], [address], [place], [address], [facility] 4 20:47:53 Fall Active 2023 RODGER ULLOA [address], [address], [place], [address], [facility] 4 20:54:04 Periprosthetic fracture 341550202 Active 2023 RODGER ULLOA [address], [address], [place], [address], [facility] 4 20:54:51 Atrial fibrillation 26687065 Active 2023 RODGER ULLOA [address], [address], [place], [address], [facility] 4 20:55:25 Coronary arterioscleros is 29888631 Active 2023 RODGER ULLOA [address], [address], [place], [address], [facility] 4 20:55:33 Osteoarthritis 635371642 Active 2023 RODGER ULLOA [address], [address], [place], [address], [facility] 4 21:02:05 Constipation 52067482 Active 2023 RODGER ULLOA [address], [address], [place], [address], [facility] 4 21:04:24 Periprosthetic fracture 109927199 Active 2023 Julianna Shaver MD [address], [address], [place], [address], [facility] 4 16:15:23 Problem Notes None recorded. Medical Equipment None Reported. Allergies No known drug allergies Vitals Date Recorded Body weight Body mass index (BMI) Body height Oxygen saturation Oxygen saturation in Arterial blood by Pulse oximetry Heart rate Respiratory rate Body temperature Systolic And Diastolic Provider Name and Address Organization Details Last Updated DateTime 4 49565.0 3 g 29.8 kg/m2 165.1 cm 94 % 94 % 78 /min 18 /min 97.5 [degF] 135/72 mm[Hg] Julianna Shaver MD [address] [facility], [address], [place], [address], [facility] 4 16:23:45 Date Recorded Body height Body temperature Oxygen saturation Oxygen saturation in Arterial blood by Pulse oximetry Respiratory rate Heart rate Systolic And Diastolic Provider Name and Address Organization Details Last Updated DateTime 4 165.1 cm 98 [degF] 98 % 98 % 18 /min 78 /min 129/87 mm[Hg] RODGER ULLOA [address] [facility], [address], [place], [address], [facility] 4 20:33:01 Date Recorded Body height Heart rate Body temperature Respiratory rate Systolic And Diastolic Provider Name and Address Organization Details Last Updated DateTime 4 165.1 cm 78 /min 98 [degF] 18 /min 129/87 mm[Hg] RODGRE ULLOA [address] [facility], [address], [place], [address], [facility] 4 14:12:41 Date Recorded Body height Heart rate Respiratory rate Body temperature Oxygen saturation Oxygen saturation in Arterial blood by Pulse oximetry Systolic And Diastolic Provider Name and Address Organization Details Last Updated DateTime 4 165.1 cm 78 /min 18 /min 98 [degF] 97.99 % 97.99 % 129/87 mm[Hg] RODGER ULLOA [address] [facility], [address], [place], [address], [facility] 4 09:43:29 Social History Question Answer Notes LastModified by Organizat ion Details LastModified Time Tobacco Smoking Status Never Smoker ROD[facility] ULLOA [address] [facility], [address], [place], [address], [facility] 12/14/2023 21:18:55 Do You Have An Advance Directive? Yes Information not available 12/14/2023 What Is Your Level Of Caffeine Consumption? None Information not available 12/14/2023 What Is Your Code Status? Full Code Information not available 12/14/2023 Where Do You Live? [place] Information not available 12/14/2023 Do You Have A Medical Power Of Instrument And Controls Technician? Yes Information not available 12/20/2023 What Was The Date Of Your Most Recent Tobacco Screening? 12/13/2023 Information not available 12/14/2023 Do You Have An Out Of Hospital DNR? No Information not available 12/14/2023 What Is Your Relationship Status? Information not available 12/14/2023 Has Tobacco Cessation Counseling Been Provided? No N/a As Pt Is Non-smok er Information not available 12/20/2023 Sex: Unknown Functional Status Question Answer Note LastModified by Organizat ion Details LastModified Time Do you use any illicit or recreational drugs? No Information not available 12/14/2023 Do you or have you ever used any other forms of tobacco or nicotine? No Information not available 12/14/2023 What is your level of alcohol consumption? None Information not available 12/14/2023 Mental Status None recorded. Family History Nothing Reported Notes:n/c Medical History No medical history recorded. Gynecological HistoryNo gynecological history recorded. Obstetrics History GPAL:G 0 P 0 0 0 0 Immunizations Vaccine Type Date Status Note Provider Nam e and Address Organization Details Recorded Time Respiratory syncytial virus (RSV) vaccine, unspecified 3 completed Pily Najera [facility] 12/07/2023 16:24:27 Tdap 9 completed Pily [facility] 12/07/2023 16:24:44 Td(adult) unspecified formulation 0 completed Pily Najera [facility] 12/07/2023 16:24:56 Pneumococcal conjugate PCV 13 5 completed Pily Najera [facility] 12/07/2023 16:25:12 Pneumococcal conjugate PCV 13 6 completed Pily Najera [facility] 12/07/2023 16:25:23 pneumococcal polysaccharide PPV23 3 completed Pilyashli Najera [facility] 12/07/2023 16:25:53 influenza, unspecified formulation 2 completed Pily [facility] 12/07/2023 16:26:17 influenza, unspecified formulation 3 completed Pily Najera [facility] 12/07/2023 16:26:27 SARS-COV-2 (COVID-19) vaccine, UNSPECIFIED 1 completed Pily Najera [facility] 12/07/2023 16:27:05 SARS-COV-2 (COVID-19) vaccine, UNSPECIFIED 1 completed Pily Najera [facility] 12/07/2023 16:27:15 SARS-COV-2 (COVID-19) vaccine, UNSPECIFIED 2 completed Pilyashli Najera [facility] 12/07/2023 16:27:22 SARS-COV-2 (COVID-19) vaccine, UNSPECIFIED 3 completed Pily [facility] 12/07/2023 16:27:47 zoster, unspecified formulation 2 completed Pily [facility] 12/07/2023 16:28:31 Past Encounters Encounter ID Performer Location Encounter Start Date Encounter Closed Date Diagnosis/Indication Diagnosis SNOMED-CT Code Diagnosis ICD10 Code Diagnosis Note [id number] [facility] [address] [place] [address] 12/07/2023 16:18:35 12/23/2023 12:43:25 Periprosthetic fracture 258487431 M97.12XA Recovering from complex revision after dione-prost hetic fx.Continu e celebrex 200 mg qd, oxycodone 5 mg q 4 hrs prn and APAP 650 mg q 6 hrs.Contin ue coumadin as below for DVT prophylaxi s also.Very deconditio emma.Needs PT/OT for strengthen ing, balance, gait training, safety and function.C ontinue fall precaution s.Monitor for safety.Mon itor pain and function.F /U with ortho as planned. Atrial fibrillation 4943 6004 I48.0 Rate in good control on metoprolol 25 mg qdContinue coumadin for AC, titrated to INR 2-3. Currently subtherape uticMonito r HR and bleeding risk. Coronary arteriosclerosis 46021509 I25.10 No recent sxs.Contin ue metoprolol 25 mg qd.Was on atorvastat in at home, not given at [facility] as left off admission med list.Will restart on d/cMonitor for sxs. [id number] RODGER ULLOA [address] [place] [address] 12/13/2023 13:23:44 12/15/2023 10:13:35 Fracture of femur 08452605 S72.92XA S/p Complex revision total knee arthroplas ty, femoral and tibal component with distal femoral replacing prosthesis on 12/02/2023ty lenol 650 mg prnoxycodo ne 5 mg Q4 prnfollow up with ortho Wednesday12/17/23 apt time is 1:20pm Periprosth etic fracture 760127481 M97.12XA recent left-sided total knee replacemen t on :wound vac to anterior Left knee place intra-opWo und VAC to remain in place x 14 days and will be replaced at [facility] during follow-up appointmen t. Atrial fibrillation 4943 6004 I48.91 continue coumadin with dose adjustment prncontinu e metoprolol succ 25 mg dailymonit or INR Target INR 2-2.5 Osteoarthritis 468778704 M19.90 continue celebrex 200 mg daily Constipation 26608151 K5 9.00 continue colace 100 mg BIDcontinu e miralax 17 gm daily Coronary arteriosclerosis 94829736 I25.10 PET stress test in September 2022 which was positive revealing a small size mild intensity reversible defect of the apex and apical inferior wall with elevated 3 times daily at 1.24. Mild coronary artery calcificat ion in all 3 coronary arteries with preserved EF.Being following by [facility] . Unsure if patient should be on ASA or not.Contin ue current medsF/[facility] Fall W19.XXXA recent left-sided total knee replacemen t on : While she was adjusting her walker she suddenly lost her balance and fell down.CT of the left lower extremity revealed an acutely displaced mildly comminuted fracture of the distal femur as well as severe soft tissue swelling with hemorrhagi c knee joint effusion. [id number] RODGER ULLOA [address] [address] 12/17/2023 14:11:33 12/20/2023 13:38:51 Fracture of femur 83172843 S72.92XA S/p Complex revision total knee arthroplas ty, femoral and tibal component with distal femoral replacing prosthesis on 12/02/2023ty lenol 650 mg prnoxycodo ne 5 mg Q4 prnfollow up with ortho Wednesday12/17/23 apt time is 1:20pm Periprosth etic fracture 503915665 M97.12XA recent left-sided total knee replacemen t on :wound vac to anterior Left knee place intra-opWo und VAC to remain in place x 14 days and will be replaced at [facility] during follow-up appointmen t. Atrial fibrillation 4943 6004 I48.91 12/16:INR 1.6- continue coumadin 5 mg 12/16-- and recheck on 12/19 continue coumadin with dose adjustment prncontinu e metoprolol succ 25 mg dailymonit or INR Target INR 2-2.5 [id number] [facility] [address] [place] [address] 12/20/2023 09:42:22 12/23/2023 13:29:51 Fracture of femur 85096744 S72.92XA S/p Complex revision total knee arthroplas ty, femoral and tibal component with distal femoral replacing prosthesis on 12/02/2023ty lenol 650 mg prnoxycodo ne 5 mg Q4 prnfollow up with [facility] as planned Periprosth etic fracture 905268617 M97.12XA recent left-sided total knee replacemen t on :wound vac to anterior Left knee place intra-opre moved by [facility] at last visit on : 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 Atrial fibrillation 4943 6004 I48.91 12/19: INR 1.7Coumadi n 6 mg 12/19 and 12/20 recheck on at [facility] inue metoprolol succ 25 mg dailymonit or INR Target INR 2-2.5 Constipation 74241526 K5 9.00 continue colace 100 mg BIDcontinu e miralax 17 gm daily Coronary arteriosclerosis 93863275 I25.10 PET stress test in September 2022 which was positive revealing a small size mild intensity reversible defect of the apex and apical inferior wall with elevated 3 times daily at 1.24. Mild coronary artery calcificat ion in all 3 coronary arteries with preserved EF.Being following by cardiology . Unsure if patient should be on ASA or not.Contin ue current medsF/[facility] Fall W19.XXXA recent left-sided total knee replacemen t on : While she was adjusting her walker she suddenly lost her balance and fell down.CT of the left lower extremity revealed an acutely displaced mildly comminuted fracture of the distal femur as well as severe soft tissue swelling with hemorrhagi c knee joint effusion. Osteoarthritis 377220745 M19.90 continue celebrex 200 mg daily Health Concerns Section Related Observation LastModified by Organization Detai ls LastModified Time None Recorded Concern Status LastModified by Organization Details LastModified Time None Recorded Advance Directives Directive Y: Payers Insurance Date Sequence Insurance Name Policy Number Policy Palomino Covered Member ID Palomino Member ID Guarantor Name 12/13/2023 1 [place]: [employer] Yolanda Hill [id number] Yolanda Hill 12/23/2023 1 [facility] (MEDICARE REPLACEMENT/A DVANTAGE - PPO) [id number] Yolanda Hill [id number] Yolanda Hill Notes Date Note Type Note Provider Name and Address Organization Details Recorded Time 12/07/2023 text/html This is a 78 yo woman who is here for rehab after an acute hospitalization for a left periprosthetic femur fx, s/p complex revision arthoplasty.She presented to the [facility] ED on 11/27 after a fall described as losing her balance when getting into bed. She had immediate LLE pain. She was s/p a left TKR on 11/17/23.Imaging showed Acute displaced and mildly comminuted fracture of the distal femur with approximately 3.9 cm of overriding of fracture fragments. Severe soft tissue swelling with hemorrhagic knee joint effusion. She was transferred to [facility] on 11/28, as that is where here surgery had been done. She underwent a complex revision total knee arthroplasty, femoral and tibal component with distal femoral replacing prosthesis on 12/02/[address] Clinton.It was a difficult procedure due to pt's severe osteoporosis. A wound vac was placed post-op.Post op she was put on a lovenox bridge and then coumadin resumed, which she was on for Afib.Her hgb dropped from 12.3 to 10.8, no transfusion needed.Pain was well controlled with APAP and oxycodone.She was transferred here on 12/05. Since here she has been working with rehab and is improving, but continues to need assist for transfers and ambulation.She says the pain is well controlled. Her PMH includes Afib, AGUEDA doesn't tolerate CPAP, obesity, and OA. Julianna Shaver MD [address] [facility], [address], [place], [address], [employer] [facility] 12/20/2023 16:17:55 12/13/2023 text/html This is a 78 yo woman with a past medical history of atrial fibrillation, osteoarthritis, AGUEDA but non compliant with CPAP, obesity, osteoarthritis, and recent left total knee replacement. Presented to the ED on 11/28 after a fall at home sustaining a left femur fracture. Patient admitted to for rehab from acute care s/p left periprosthetic femur fx, s/p complex revision arthoplasty. Patient is seen today for acute rounding visit.Patient is stable, offers no new complaints, there is no acute nursing concerns. RODGER ULLOA [address] [facility], [address], [place], [address], [employer] [facility] 12/14/2023 21:48:56 12/17/2023 text/html This is a 78 yo woman with a past medical history of atrial fibrillation, osteoarthritis, AGUEDA but non compliant with CPAP, obesity, osteoarthritis, and recent left total knee replacement. Presented to the ED on 11/28 after a fall at home sustaining a left femur fracture. Patient admitted to for rehab from acute care s/p left periprosthetic femur fx, s/p complex revision arthoplasty. Patient is seen today for acute rounding visit.she is alert and stable, pain is controlled, she is progressing with therapy. She has follow up appt today with [facility]. Thyere are no acute nursing concerns. RODGER ULLOA [address] [facility], [address], [place], [address], [employer] 12/17/2023 14:23:22 12/20/2023 text/html This is a 78 yo woman with a past medical history of atrial fibrillation, osteoarthritis, AGUEDA but non compliant with CPAP, obesity, osteoarthritis, and recent left total knee replacement. Presented to the ED on 11/28 after a fall at home sustaining a left femur fracture. Reported sudden loss of balance when adjusting her walker and getting into bedAcute displaced and mildly comminuted fracture of the distal femur with approximately 3.9 cm of overriding of fracture fragments. Severe soft tissue swelling with hemorrhagic knee joint effusion.Patient admitted to for rehab from acute care s/p left periprosthetic femur fx, s/p complex revision arthoplasty. Patient is seen today for discharge.Patient has been relatively stable, she in minimal assist with ADL care and needs. Patient had follow care on 12/16 with [facility], she will re-visit later this week to have sutures removed. Medication reviewed, she will take continue coumadin 6 mg for the next 2 days and follow up at coumadin clinic on Wednesday12/22/23. Patient has met goals with therapy and can be safely discharged to home with medications, PT/OT and nursing services., will be receiving home health services from [facility]. RODGER ULLOA [address] [facility], [address], [place], [address], [employer] 12/20/2023 10:12:28 OBGyn Episode No OBEpisode recorded.
--- OUTSIDE RECORDS SUMMARY | 2025-02-14 11:28 | XMS_ITS | Clinical Summary ---
Author Organization [facility] [address] [facility] Address [address] [place] [address] Phone Care Team Providers Care Email Production Consultant Name Role Phone Dian Bright MD Primary Care Provider [phone] Allergies Active Allergy Reactions Criticality Noted Date Comments Other 09/02/2007 Seasonal Allergies Medications atorvastatin (LIPITOR) 20 mg tablet Take 1 tablet (20 mg total) by mouth at bedtime. 90 tablet 1 07/05/2024 Active metoprolol succinate (TOPROL-XL) 25 mg 24 hr tablet Take 1 tablet (25 mg total) by mouth 1 (one) time each day. 90 tablet 1 07/05/2024 Active warfarin (COUMADIN) 2.5 mg tablet Take 1-3 tablets by mouth at 6 pm as directed. May cause heavy bleeding. Take at same time every day. Do not change dietary habits. 180 tablet 1 07/05/2024 Active acetaminophen (Tylenol Arthritis Pain) 650 mg 8 hr tablet Take 1 tablet (650 mg total) by mouth every 8 (eight) hours if needed. 11/29/2023 Active Active Problems Problem Noted Date Diagnosed Date Varicose vein of leg 07/04/2024 Obesity (BMI 30.0-34.9) 06/16/2023 CAD (coronary artery disease) 01/29/2023 Overview (07/07/2024): She does have an abnormal cardiac PET/CT stress test as above with a very small area of ischemia. She is not having any symptoms. We will continue medical therapy. Going to add metoprolol succinate 25 mg daily to her regimen. She will start taking half a tablet for 3 days and if she tolerates this well she will increase to a full tablet. She will otherwise continue atorvastatin and her warfarin. If she does develop any ischemic symptoms or worsening dyspnea she will give us a call. Any chest pain or chest discomfort lasting for 15 minutes or longer she should seek urgent medical attention. Polycythemia 06/15/2022 Aortic stenosis 12/09/2021 Overview (05/19/2024): 08/22 mild 01/21 mild Obstructive sleep apnea 12/05/2021 Overview (05/19/2024): [facility] Home sleep test 11/25/2021; weight 190; BMI 34. AHI 18. Unclassified apneas 42, obstructive apneas 1, hypopneas 89. Average oxygen saturation 93% with oxygen criss 80%. Obstructive sleep apnea-moderate with mostly hypopneas and unclassified apneas without nocturnal hypoxemia based on 2021 home sleep test. Atrial fibrillation (CMS/HCC V24, CMS/HCC V28) 0 04/05/2020 Atopic dermatitis 03/17/2018 Overview (05/19/2024): Left arm and leg; treated with triamcinolone plus CeraVe Arthritis, degenerative 01/07/2015 Overview (05/19/2024): Shoulder, neck, knees Hyperlipidemia 02/01/2012 OA (osteoarthritis) of knee 10/05/2008 Total knee replacement status Overview (07/04/2024): 10/22 right TKR Encounters Date Type Department Care Team Description 01/01/2025 Telephone Adult Medicine [address] [phone] Dian Bright MD Hospital Follow-up 11/29/2024 10:30 AM EDT Anticoagulation - Warfarin Visit Coumadin Clinic - [address] [phone] Atrial fibrillation, unspecified type (CMS/HCC V24, CMS/HCC V28) (Primary Dx) from Last 3 Months Immunizations Name Administration Dates Next Due COVID-19 (Moderna/Spikevax) 12yo and older 05/28/2023 Influenza trivalent, 0.5mL ( Fluad) 65yo and older 04/16/2024,06/02/2022,05/19/2022,03/11,03/27/2020,04/18/2019,05/05/2018 ,04/26/2017,04/23/2016 Influenza trivalent, 0.5mL, preservative free (Fluarix; FluLaval; Fluzone) ages 6mo and older (Afluria) 3 years and older 05/01/2013 Influenza trivalent, with pr eservative (Fluzone; Afluria) 6mo and older 03/02/2021,05/18/2014,06/29/2012,04/13 Influenza, Unspecified 05/03/2023,04/23/2016, [employer] SARS-CoV-2 COVID -19, vector-nr, rS-[id number], preservative free 11/06/2020 Pneumococcal conjugate 13 va lent (Prevnar 13, PCV13) 2mo and older 06/01/2016,07/21/2015 Pneumococcal polysaccharide 23 valent (Pneumovax 23) 2yo and older 08/04/2012 RSV, bivalent, protein subun it RSVpreF, 0.5mL, Preservative Free (Arexvy) 60yo and older 07/13/2023 Td Tetanus diptheria (Tdvax) 7yo and older 05/02/2020 Tdap Tetanus diptheria acell ular pertussis (Boostrix; Adacel) 7yo and older 10/05/2008 Zoster Live 02/24/2012 Surgical History Surgery Date Site/Laterality Comments HERNIA REPAIR umbilical HYSTERECTOMY : 1998 for bladder issues; still has ovaries OTHER SURGICAL HISTORY 2004 arthroscopy on left knee FOOT SURGERY 2012 COLONOSCOPY 05/05/2004 Diverticulosis COLONOSCOPY 07/13/2014 : Severe diverticular disease; 5 mm diminutive polyp at 40 cm: tubular adenoma. COLONOSCOPY 04/04/2020 No polyps, next exam indicated in 10 years. TOTAL KNEE ARTHROPLASTY 09/2022 Right Medical History Medical History Date Comments Environmental allergies Generalized osteoarthrosis, unspecified site Atopic dermatitis 03/17/2018 : Left arm and leg; treated with triamcinolone plus CeraVe Chronic venous insufficiency 04/08/2016 Hyperlipidemia with target L DL less than 130 02/01/2012 OA (osteoarthritis) of knee 10/05/2008 Polycythemia 06/15/2022 Total knee replacement status 12/16/2022 right TKR Varicose vein of leg 07/04/2024 Family History Medical History Relation Name Comments Diabetes Brother dementia Diabetes Father MS Arthritis Mother dementia, camila sterol Breast cancer Neg Hx Colon cancer Neg Hx Ovarian cancer Neg Hx Relation Name Status Comments Brother Father Mother Social History Tobacco Use Types Packs/Day Years Used Date Smoking Tobacco: Never Smokeless Tobacco: Never Tobacco Cessation:Counseling Given: Not Answered Alcohol Use Standard Drinks/Week Comments Yes 0 (1 standard drink = 0.6 oz pure alcohol) On occasion- mostly during summer Comments Unknown Sex and Gender Information Value Date Recorded Sex Assigned at Not on file Legal Sex Female 2:45 AM EST Gender Identity Not on file Sexual Orientation Not on file Obstetrics History Last Filed Vital Signs Vital Sign Reading Time Taken Comments Blood Pressure 140/83 10/05/2024 10:36 AM EST Pulse 86 10/05/2024 10:36 AM EST Temperature 36.7 C (98 F) 10/05/2024 10:36 AM EST Respiratory Rate 16 07/05/2024 12:45 PM EST Oxygen Saturation 100% 10/05/2024 10:36 AM EST Inhaled Oxygen Concentration - - Weight 78.9 kg (174 lb) 10/05/2024 10:36 AM EST Height 160 cm (5' 3 ) 09/06/2024 10:52 AM EST Body Mass Index 30.82 09/06/2024 10:52 AM EST Plan of Treatment Upcoming Encounters Date Type Department Care Team (Late st Contact Info) Description 02/26/2025 1:40 PM EDT Appointment Radiology Department - [address] [phone] Health Maintenance Due Date Last Done Comments Zoster Vaccines (2 of 3) 04/20/2012 02/24/2012 Depression Screening 07/11/2022 Falls Risk Assessment 07/11/2022 Medicare Annual Wellness Visit 07/11/2022 Social Influencers of Health Screening 07/11/2022 COVID-19 Vaccine ( season) 2025 07/07/2024, 05/28/2023, 03/04/2022, Additional history exists Influenza Vaccine (#1) 2025 , 05/03/2023, 06/02/2022, Additional history exists Hypertension/CHF/CAD Annual BMP Blood Test 07/05/2025 07/05/2024, 01/04/2024, 01/04/2024 Osteoporosis Screening (Bone Density Screening) 03/21/2028 03/21/2018 Cholesterol Screening (Lipid Panel) 01/03/2029 01/04/2024, 01/04/2024 DTaP,Tdap,and Td Vaccines (3 - Td or Tdap) 05/02/2030 05/02/2020, 10/05/2008 Hepatitis C Screening Completed 01/17/2013 Pneumococcal Vaccine: 50+ Years Completed 06/01/2016, 07/21/2015, 08/04/2012 RSV Immunization Adult Patients Completed 07/13/2023 HIB Vaccines Aged Out No longer eligi ble based on patient's age to complete this topic HPV Vaccines Aged Out No longer eligi ble based on patient's age to complete this topic Hepatitis A Vaccines Aged Out No long er eligible based on patient's age to complete this topic Hepatitis B Vaccines Aged Out No long er eligible based on patient's age to complete this topic IPV Vaccines Aged Out No longer eligi ble based on patient's age to complete this topic MMR Vaccines Aged Out No longer eligi ble based on patient's age to complete this topic Meningococcal ACWY Vaccine Aged Out N o longer eligible based on patient's age to complete this topic Meningococcal B Vaccine Aged Out No l onger eligible based on patient's age to complete this topic RSV Immunization Patients Under 20 months Aged Out No longer eligible based on patient's age to complete this topic Varicella Vaccines Aged Out No longer eligible based on patient's age to complete this topic Procedures Procedure Name Priority Date/Time Associated Diagnosis Comments POC PROTIME INR BLOOD Routine 11/29/2024 Atrial fibrillation, unspecified type (CMS/HCC V24, CMS/HCC V28) BASIC METABOLIC PANEL Routine 07/05/2024 1:45 PM EST Coronary artery disease involving [place] coronary artery of [place] heart without angina pectoris LIPID PANEL Routine 01/04/2024 DXA BONE DENSITY STUDY 1+ SITS AXIAL SKEL Routine 03/21/2018 1:23 PM EDT Encounter for screening for osteoporosis HEPATITIS C SCREENING Routine 01/17/2013 from Last 3 Months or Most Recently Relevant to Health Maintenance Results * POC Protime INR Blood (11/29/2024) Lot Number INR POC 2.1 Prothrombin Time POC Exp Date Blood 11/29/2024 Dian Bright MD POINT OF CARE TEST ENTER/EDIT OR DERABLES Final Result * Basic metabolic panel (07/05/2024 1:45 PM EST) Sodium 142 133 - 145 mmol/L LAB CHEMISTRY METHOD 07/05/2024 4:49 PM [facility] Potassium 4.0 3.5 - 5.5 mmol/L LAB CHEMISTRY METHOD 07/05/2024 4:49 PM [facility] Chloride 109 96 - 110 mmol/L LAB CHEMISTRY METHOD 07/05/2024 4:49 PM [facility] CO2 27 21 - 32 mmol/L LAB CHEMISTRY METHOD 07/05/2024 4:49 PM [facility] Anion Gap 6 3 - 11 LAB CHEMISTRY METHOD 07/05/2024 4:49 PM [facility] Glucose 76 70 - 100 mg/dL LAB CHEMISTRY METHOD 07/05/2024 4:49 PM [facility] BUN 20 5 - 25 mg/dL LAB CHEMISTRY METHOD 07/05/2024 4:49 PM [facility] Creatinine 0.84 0.50 - 1.10 mg/dL LAB CHEMISTRY METHOD 07/05/2024 4:49 PM [facility] eGFR 72 >=60 mL/min/1. 73m2 LAB CHEMISTRY METHOD 07/05/2024 4:49 PM EST [facility] Comment:Calculation based on the Chronic Kidney Disease Epidemiology Collaboration (CKD-EPI) equation refit without adjustment for race. BUN/Creatinine Ratio 23.8 LAB CHEMISTRY METHOD 07/05/2024 4:49 PM EST [facility] Calcium 9.4 8.5 - 10.5 mg/dL LAB CHEMISTRY METHOD 07/05/2024 4:49 PM EST [facility] Blood Venous blood specimen / Unknown Venipuncture / Unknown 07/05/2024 1:45 PM EST 07/05/2024 1:45 PM EST Dian Bright MD LAB BLOOD ORDERABLES Final Resul t [facility] [address] [place] [address], [place] [phone] * (ABNORMAL) Lipid panel (01/04/2024) LDL/HDL Ratio 4 0 - 4 Triglycerides 179(A) 0 - 150 mg/dL Cholesterol 189 0 - 200 mg/dL HDL 45 >=40 mg/dL LDL Cholesterol 109(A) 0 - 100 mg/dL Blood Venous blood specimen / Unknown Merary Provider LAB BLOOD ORDERABLES Odalis l Result * DXA BONE DENSITY STUDY 1+ SITS AXIAL SKEL (03/21/2018 1:23 PM EDT) Anatomical Region Laterality Modality Bone Densitometr y 03/17/2018 11:4 9 AM EDT Narrative 03/22/2018 8:42 AM EDT BONE DENSITY (DEXA) Lumbar Spine T-score is -0.3. (SD relative to 20-29 y/o adult) Z-score is 1.8. (SD relative to age matched peers) This is considered normal by WHO criteria. Left Hip T-score is -1.8. Z-score is 0.1. This is considered osteopenia by WHO criteria. IMPRESSION: This patient is considered osteopenia by WHO criteria. This patient has a 10% risk of major osteoporotic fracture and a 1.7% risk of hip fracture over the next 10 years. (World Health Organization Fracture Risk Assessment) The [facility] Department of Internal Medicine recommends using National Osteoporosis Foundation (NOF) guidelines in treatment decisions related to osteoporosis. NOF guidelines suggest considering treatment for postmenopausal women and men aged 50 or older presenting with the following: History of hip or vertebral fracture. T-score = -2.5 (DXA) at the femoral neck, total hip, or spine, after appropriate evaluation to exclude secondary causes. Low bone mass (T-score between -1.0 and -2.5 at the femoral neck or spine) AND a 10-year probability of a hip fracture = 3% OR a 10-year probability of a major osteoporosis-related fracture = 20% based on the [place]-adapted WHO algorithm Please note that all treatment decisions require clinical judgment and consideration of individual patient factors, including patient preferences, co-morbidities, previous drug use, risk factors not captured in the FRAX model (e.g., frailty, falls, vitamin D deficiency, increased bone turnover, interval significant decline in bone density) and possible under- or over-estimation of fracture risk by FRAX. Optional alternative screening schedule based on matias Stewart., [facility] August 20, 2011 for patients with osteopenia (based on hip BMD T-score) is as follows: * advanced osteopenia (T scores -2.00 to -2.49), BMD testing every year * moderate osteopenia (T scores -1.50 to -1.99), BMD testing every 5 years mild osteopenia or normal BMD (T scores -1.50 and higher), BMD testing every 15 years Procedure Note Tricia Bragg MD - 07/21/2022 BONE DENSITY (DEXA) Lumbar Spine T-score is -0.3. (SD relative to 20-29 y/o adult) Z-score is 1.8. (SD relative to age matched peers) This is considered normal by WHO criteria. Left Hip T-score is -1.8. Z-score is 0.1. This is considered osteopenia by WHO criteria. IMPRESSION: This patient is considered osteopenia by WHO criteria. This patient has a10% risk of major osteoporotic fracture and a 1.7% risk of hip fracture over the next 10years. (World Health Organization Fracture Risk Assessment) The [facility] Department of Internal Medicine recommendsusing National Osteoporosis Foundation (NOF) guidelines in treatment decisions related toosteoporosis. NOF guidelines suggest considering treatment for postmenopausal women and menaged 50 or older presenting with the following: History of hip or vertebral fracture. T-score = -2.5 (DXA) at the femoral neck, total hip, or spine, afterappropriate evaluation to exclude secondary causes. Low bone mass (T-score between -1.0 and -2.5 at the femoral neck or spine)AND a 10-year probability of a hip fracture = 3% OR a 10-year probability of a majorosteoporosis-related fracture = 20% based on the [place]-adapted WHO algorithm Please note that all treatment decisions require clinical judgment andconsideration of individual patient factors, including patient preferences, co- morbidities,previous drug use, risk factors not captured in the FRAX model (e.g., frailty, falls, vitaminD deficiency, increased bone turnover, interval significant decline in bone density) andpossible under- or over-estimation of fracture risk by FRAX. Optional alternative screening schedule based on matias Stewart., [facility] for patients with osteopenia (based on hip BMD T-score) is as follows: * advanced osteopenia (T scores -2.00 to -2.49), BMD testing every year * moderate osteopenia (T scores -1.50 to -1.99), BMD testing every 5years mild osteopenia or normal BMD (T scores -1.50 and higher), BMD testingevery 15 years Radha Arellano MD IM DXA PROCEDURES Final Res ult * Hepatitis C Screening (01/17/2013) [facility] Hepatitis C Screening abstracted Historical Provider HEALTH MAINTENANCE Final Result from Last 3 Months or Most Recently Relevant to Health Maintenance Insurance MEDICARE Care Teams Email Production Consultant Relationship Specialty Start Date End Date Dian Bright MD [address] [place] [address] PCP - General Internal Medicine 12/18/20
== END 2025-02-13 10:45 | disposition home or self-care (01) ==
LOC: HO.HOSX 10:44
PROVIDERS: Visit Provider Physician Assistant
DX: Z13.89 Encounter for screening for other disorder (principal)